=== PATIENT | male | born 1970 | race Caucasian/White ===

== ENCOUNTER 2018-02-02 15:14 | Emergency (ER) | payer MEDICARE ==
[2018-02-02] MEDS ORDERED: WARFARIN SOD 3 MG TAB PO (17:00)
== END 2018-02-02 16:10 | disposition home or self-care (01) ==
LOC: M ED 15:14
DX: Z76.0 Encounter for issue of repeat prescription (principal); M79.604 Pain in right leg; M79.605 Pain in left leg; E11.9 Type 2 diabetes mellitus without complications; I10 Essential (primary) hypertension; I25.2 Old myocardial infarction; Q05.9 Spina bifida, unspecified; F41.9 Anxiety disorder, unspecified; F32.9 Major depressive disorder, single episode, unspecified; Z96.0 Presence of urogenital implants; Z88.2 Allergy status to sulfonamides; Z79.899 Other long term (current) drug therapy; Z79.01 Long term (current) use of anticoagulants; Z79.4 Long term (current) use of insulin; Z79.82 Long term (current) use of aspirin
CPT/HCPCS: 99282

== ENCOUNTER 2018-02-04 01:34 | Emergency (ER) | payer MEDICARE ==
[2018-02-04] MEDS: LIDOCAINE 2% 5ML JELLY UROJET TOP (05:59)
[2018-02-04] MEDS: CEPHALEXIN 500 MG CAP PO (07:08)
== END 2018-02-04 07:11 | disposition home or self-care (01) ==
LOC: M ED 01:34
DX: Z46.6 Encounter for fitting and adjustment of urinary device (principal); E11.9 Type 2 diabetes mellitus without complications; L98.419 Non-pressure chronic ulcer of buttock with unspecified severity; J45.909 Unspecified asthma, uncomplicated; Q05.9 Spina bifida, unspecified; E78.9 Disorder of lipoprotein metabolism, unspecified; K21.9 Gastro-esophageal reflux disease without esophagitis; I25.2 Old myocardial infarction; Z79.899 Other long term (current) drug therapy; Z79.01 Long term (current) use of anticoagulants
CPT/HCPCS: 87186

== ENCOUNTER 2018-02-08 09:13 | Inpatient (IN) | payer MEDICARE ==
[2018-02-08 11:59] LABS: BASO # 0.1 10^3/uL (0.0-0.2); BASO % 0.5 % (0.0-1.0); EOS # 0.4 10^3/uL (0.0-0.50); EOS % 4.4 % (0.0-3.0); HEMATOCRIT 27.7 % (42.0-52.0); HEMOGLOBIN 7.6 g/dl (13.5-17.5); IMMATURE GRANULOCYTE % 0.6 % (0-3.0); LYMPH # 1.6 10^3/uL (1.5-4.5); LYMPH % 16.8 % (24.0-44.0); MEAN CORPUSCULAR HEMOGLOBIN 17.9 pg (27.0-33.0); MEAN CORPUSCULAR HGB CONC 27.4 g/dl (32.0-36.5); MEAN CORPUSCULAR VOLUME 65.3 fl (80.0-96.0); MONO # 0.6 10^3/uL (0.0-0.8); NEUTROPHILS # 6.9 10^3/uL (1.8-7.7); NEUTROPHILS % 71.7 % (36.0-66.0); PLATELET COUNT, AUTOMATED 250 10^3/uL (150-450); RED BLOOD COUNT 4.24 10^6/uL (4.30-6.10); RED CELL DISTRIBUTION WIDTH 19.2 % (11.5-14.5); WHITE BLOOD COUNT 9.6 10^3/uL (4.0-10.0)
[2018-02-08 12:18] LABS: ANION GAP 7 MEQ/L (8-16); BLOOD UREA NITROGEN 12 MG/DL (7-18); C REACTIVE PROTEIN QUANTITATIV 3.93 MG/DL (0.00-0.30); CALCIUM LEVEL 7.3 MG/DL (8.5-10.1); CARBON DIOXIDE LEVEL 26 MEQ/L (21-32); CHLORIDE LEVEL 107 MEQ/L (98-107); CREATININE FOR GFR 0.71 MG/DL (0.70-1.30); GLOMERULAR FILTRATION RATE > 60.0 (>60); GLUCOSE, FASTING 98 MG/DL (70-100); POTASSIUM SERUM 4.4 MEQ/L (3.5-5.1); SODIUM LEVEL 140 MEQ/L (136-145)
[2018-02-08 12:25] LABS: PROTHROMBIN TIME 57.4 SECONDS (12.1-14.4)
[2018-02-08 12:26] LABS: INR 6.32
[2018-02-08 12:29] LABS: ERYTHROCYTE SEDIMENTATION RATE 60 mm/hr (0-15)
[2018-02-08] MEDS: NORCO, ANEXSIA 5/325MG TABLET (HYDROcodone/ACETAMINOPHEN) PO ×2 (12:33→21:55)
[2018-02-08] MEDS: NS 500 ML IV (12:34)
[2018-02-08] MEDS: MORPHINE 4 MG/ML 1ML VIAL/SYRINGE (J2270) IV ×2 (12:34→14:33)
[2018-02-08 13:01] LABS: BEDSIDE GLUCOSE 78 MG/DL (70-105)
[2018-02-08 13:21] LABS: AMORPHOUS SEDIMENT RFX SMALL (NEGATIVE); KETONE, URINE AUTO RFX NEGATIVE (NEGATIVE); NITRITE, URINE AUTO RFX NEGATIVE (NEGATIVE); RBC, URINE AUTO RFX TNTC /HPF (0-3); SPECIFIC GRAVITY UR AUTO RFX 1.008 (1.002-1.035); SQUAM EPITHELIAL CELL UR AURFX 0 /HPF (0-6)
[2018-02-08 13:26] LABS: LEUKOCYTE ESTERASE UR AUTO RFX 3+ (NEGATIVE); WBC, URINE AUTO RFX TNTC /HPF (0-3)
[2018-02-08] MEDS: CLINDAMYCIN 600 MG in APPROPRIATE DILUENT 1 EA IV (13:31)
[2018-02-08 13:58] LABS: ESTIMATED AVERAGE GLUCOSE 258 MG/DL (60-110); HEMOGLOBIN A1c 10.6 %
[2018-02-08] MEDS: PHYTONADIONE 10MG/ML INJECTION (J3430) SC (15:30)
[2018-02-08] MEDS ORDERED: ONDANSETRON 4 MG TAB (S0181) PO (18:15)
[2018-02-08] MEDS ORDERED: ALBUTEROL 90 MCG/ACT 8GM HFA INHALER INH (18:15)
[2018-02-08] MEDS: ROSUVASTATIN 10 MG TAB (CRESTOR) PO (21:53)
[2018-02-08] MEDS: CARVedilol 6.25 MG TAB PO (21:55)
[2018-02-08] MEDS: CEPHALEXIN 500 MG CAP PO (21:55)
[2018-02-09] MEDS: CYCLOBENZAPRINE 10 MG TAB PO (00:08)
[2018-02-09] MEDS: ACETAMINOPHEN TAB 650MG DOSE (2X325MG) PO (02:10)
[2018-02-09 06:21] LABS: HEMATOCRIT 24.5 % (42.0-52.0); MEAN CORPUSCULAR HEMOGLOBIN 17.8 pg (27.0-33.0); MEAN CORPUSCULAR HGB CONC 26.9 g/dl (32.0-36.5); MEAN CORPUSCULAR VOLUME 66.2 fl (80.0-96.0); PLATELET COUNT, AUTOMATED 222 10^3/uL (150-450); RED CELL DISTRIBUTION WIDTH 19.1 % (11.5-14.5); WHITE BLOOD COUNT 6.9 10^3/uL (4.0-10.0)
[2018-02-09 06:26] LABS: HEMOGLOBIN 6.6 g/dl (13.5-17.5)
[2018-02-09 06:34] LABS: INR 4.65; PROTHROMBIN TIME 45.1 SECONDS (12.1-14.4)
[2018-02-09 06:39] LABS: ANION GAP 8 MEQ/L (8-16); BLOOD UREA NITROGEN 10 MG/DL (7-18); CARBON DIOXIDE LEVEL 25 MEQ/L (21-32); CHLORIDE LEVEL 105 MEQ/L (98-107); CREATININE FOR GFR 0.68 MG/DL (0.70-1.30); GLOMERULAR FILTRATION RATE > 60.0 (>60); GLUCOSE, FASTING 286 MG/DL (70-100); POTASSIUM SERUM 3.6 MEQ/L (3.5-5.1); SODIUM LEVEL 138 MEQ/L (136-145)
[2018-02-09] MEDS ORDERED: GLUCOSE 4 GM CHEW TABLET PO (07:45)
[2018-02-09] MEDS ORDERED: GLUCAGON FOR INJ 1 MG VIAL (J1610) SC (07:45)
[2018-02-09] MEDS ORDERED: DEXTROSE 50% 50 ML SYRINGE IV (07:45)
[2018-02-09] MEDS: SERTRALINE 100 MG TAB PO (09:48)
[2018-02-09] MEDS: CEPHALEXIN 500 MG CAP PO ×2 (09:48→21:23)
[2018-02-09] MEDS: PANTOPRAZOLE 40MG TAB (PROTONIX) PO (09:49)
[2018-02-09] MEDS: CARVedilol 6.25 MG TAB PO ×2 (09:49→21:24)
[2018-02-09] MEDS: MORPHINE 4 MG/ML 1ML VIAL/SYRINGE (J2270) IV ×3 (10:42→23:14)
[2018-02-09 11:33] LABS: MAGNESIUM LEVEL 1.5 MG/DL (1.8-2.4)
[2018-02-09 11:52] LABS: BEDSIDE GLUCOSE 237 MG/DL (70-105)
[2018-02-09 12:45] LABS: IMMEDIATE SPIN CROSSMATCH 1 2
[2018-02-09] MEDS: HumaLOG INSULIN (NovoLOG) PER UNIT SC ×3 (13:07→21:00)
[2018-02-09] MEDS: MAG SULF 1GM/100ML (MAG RUN) 1 GM in APPROPRIATE DILUENT 1 EA IV ×3 (15:10→17:07)
[2018-02-09] MEDS ORDERED: MAG SULF 1GM/100ML (MAG RUN) 1 GM in APPROPRIATE DILUENT 1 EA IV (15:15)
[2018-02-09 16:48] LABS: BEDSIDE GLUCOSE 233 MG/DL (70-105)
[2018-02-09 17:09] LABS: HEMATOCRIT 29.9 % (42.0-52.0); HEMOGLOBIN 8.5 g/dl (13.5-17.5)
[2018-02-09 20:55] LABS: BEDSIDE GLUCOSE 202 MG/DL (70-105)
[2018-02-09] MEDS: ROSUVASTATIN 10 MG TAB (CRESTOR) PO (21:23)
[2018-02-10] MEDS: MORPHINE 4 MG/ML 1ML VIAL/SYRINGE (J2270) IV ×3 (05:18→17:44)
[2018-02-10 06:31] LABS: HEMATOCRIT 29.3 % (42.0-52.0); HEMOGLOBIN 8.2 g/dl (13.5-17.5); MEAN CORPUSCULAR HEMOGLOBIN 19.5 pg (27.0-33.0); MEAN CORPUSCULAR VOLUME 69.6 fl (80.0-96.0); PLATELET COUNT, AUTOMATED 244 10^3/uL (150-450); RED BLOOD COUNT 4.21 10^6/uL (4.30-6.10); RED CELL DISTRIBUTION WIDTH 21.9 % (11.5-14.5); WHITE BLOOD COUNT 9.1 10^3/uL (4.0-10.0)
[2018-02-10 06:46] LABS: PROTHROMBIN TIME 23.1 SECONDS (12.1-14.4)
[2018-02-10 06:59] LABS: ANION GAP 5 MEQ/L (8-16); BLOOD UREA NITROGEN 8 MG/DL (7-18); CARBON DIOXIDE LEVEL 27 MEQ/L (21-32); CHLORIDE LEVEL 106 MEQ/L (98-107); GLOMERULAR FILTRATION RATE > 60.0 (>60); GLUCOSE, FASTING 168 MG/DL (70-100); POTASSIUM SERUM 3.6 MEQ/L (3.5-5.1); SODIUM LEVEL 138 MEQ/L (136-145)
[2018-02-10] MEDS: CARVedilol 6.25 MG TAB PO ×2 (08:48→22:29)
[2018-02-10] MEDS: CEPHALEXIN 500 MG CAP PO ×2 (08:48→22:28)
[2018-02-10] MEDS: SERTRALINE 100 MG TAB PO (08:48)
[2018-02-10] MEDS: PANTOPRAZOLE 40MG TAB (PROTONIX) PO (08:48)
[2018-02-10] MEDS: HumaLOG INSULIN (NovoLOG) PER UNIT SC ×4 (08:49→21:00)
[2018-02-10 11:58] LABS: BEDSIDE GLUCOSE 186 MG/DL (70-105)
[2018-02-10 13:50] LABS: MAGNESIUM LEVEL 1.7 MG/DL (1.8-2.4)
[2018-02-10] MEDS: MAGNESIUM OXIDE 400 MG TAB (MAG-OX) PO ×2 (14:07→22:28)
[2018-02-10] MEDS: CYCLOBENZAPRINE 10 MG TAB PO (16:50)
[2018-02-10] MEDS ORDERED: WARFARIN SOD 3 MG TAB PO (17:00)
[2018-02-10 17:35] LABS: BEDSIDE GLUCOSE 196 MG/DL (70-105)
[2018-02-10 20:08] LABS: BEDSIDE GLUCOSE 182 MG/DL (70-105)
[2018-02-10] MEDS: APIXABAN 5 MG TAB (ELIQUIS) PO (22:28)
[2018-02-10] MEDS: ROSUVASTATIN 10 MG TAB (CRESTOR) PO (22:28)
[2018-02-10] MEDS: PERCOCET 5MG/325MG TAB PO (22:38)
[2018-02-11] MEDS: MORPHINE 4 MG/ML 1ML VIAL/SYRINGE (J2270) IV ×2 (00:16→08:14)
[2018-02-11] MEDS: PERCOCET 5MG/325MG TAB PO ×3 (06:22→21:34)
[2018-02-11 07:00] LABS: HEMATOCRIT 29.3 % (42.0-52.0); HEMOGLOBIN 8.1 g/dl (13.5-17.5); MEAN CORPUSCULAR HEMOGLOBIN 19.3 pg (27.0-33.0); MEAN CORPUSCULAR HGB CONC 27.6 g/dl (32.0-36.5); MEAN CORPUSCULAR VOLUME 69.8 fl (80.0-96.0); PLATELET COUNT, AUTOMATED 243 10^3/uL (150-450); RED CELL DISTRIBUTION WIDTH 22.1 % (11.5-14.5); WHITE BLOOD COUNT 8.6 10^3/uL (4.0-10.0)
[2018-02-11 07:10] LABS: INR 1.49; PROTHROMBIN TIME 18.3 SECONDS (12.1-14.4)
[2018-02-11 07:22] LABS: ANION GAP 7 MEQ/L (8-16); BLOOD UREA NITROGEN 8 MG/DL (7-18); CALCIUM LEVEL 7.7 MG/DL (8.5-10.1); CARBON DIOXIDE LEVEL 24 MEQ/L (21-32); CHLORIDE LEVEL 104 MEQ/L (98-107); GLOMERULAR FILTRATION RATE > 60.0 (>60); GLUCOSE, FASTING 315 MG/DL (70-100); POTASSIUM SERUM 3.6 MEQ/L (3.5-5.1); SODIUM LEVEL 135 MEQ/L (136-145)
[2018-02-11] MEDS: HumaLOG INSULIN (NovoLOG) PER UNIT SC ×4 (08:12→21:34)
[2018-02-11] MEDS: APIXABAN 5 MG TAB (ELIQUIS) PO ×2 (10:16→21:26)
[2018-02-11] MEDS: CARVedilol 6.25 MG TAB PO ×2 (10:16→21:29)
[2018-02-11] MEDS: MAGNESIUM OXIDE 400 MG TAB (MAG-OX) PO ×2 (10:17→21:27)
[2018-02-11] MEDS: CEPHALEXIN 500 MG CAP PO ×2 (10:17→21:26)
[2018-02-11] MEDS: SERTRALINE 100 MG TAB PO (10:17)
[2018-02-11] MEDS: PANTOPRAZOLE 40MG TAB (PROTONIX) PO (10:17)
[2018-02-11 11:29] LABS: BEDSIDE GLUCOSE 249 MG/DL (70-105)
[2018-02-11 16:42] LABS: BEDSIDE GLUCOSE 203 MG/DL (70-105)
[2018-02-11] MEDS: ROSUVASTATIN 10 MG TAB (CRESTOR) PO (21:26)
[2018-02-11 21:30] LABS: BEDSIDE GLUCOSE 320 MG/DL (70-105)
[2018-02-12] MEDS: PERCOCET 5MG/325MG TAB PO ×4 (02:35→22:47)
[2018-02-12] MEDS: CYCLOBENZAPRINE 10 MG TAB PO (04:39)
[2018-02-12 05:41] LABS: HEMATOCRIT 30.4 % (42.0-52.0); HEMOGLOBIN 8.6 g/dl (13.5-17.5); MEAN CORPUSCULAR HEMOGLOBIN 19.7 pg (27.0-33.0); MEAN CORPUSCULAR HGB CONC 28.3 g/dl (32.0-36.5); MEAN CORPUSCULAR VOLUME 69.6 fl (80.0-96.0); PLATELET COUNT, AUTOMATED 261 10^3/uL (150-450); RED BLOOD COUNT 4.37 10^6/uL (4.30-6.10); RED CELL DISTRIBUTION WIDTH 22.7 % (11.5-14.5); WHITE BLOOD COUNT 8.8 10^3/uL (4.0-10.0)
[2018-02-12 05:55] LABS: INR 1.46
[2018-02-12 06:03] LABS: ANION GAP 8 MEQ/L (8-16); BLOOD UREA NITROGEN 8 MG/DL (7-18); CALCIUM LEVEL 7.3 MG/DL (8.5-10.1); CARBON DIOXIDE LEVEL 24 MEQ/L (21-32); CHLORIDE LEVEL 102 MEQ/L (98-107); CREATININE FOR GFR 0.68 MG/DL (0.70-1.30); GLOMERULAR FILTRATION RATE > 60.0 (>60); GLUCOSE, FASTING 317 MG/DL (70-100); POTASSIUM SERUM 3.4 MEQ/L (3.5-5.1); SODIUM LEVEL 134 MEQ/L (136-145)
[2018-02-12] MEDS: POTASSIUM CHLORIDE 10 MEQ SR TABLET PO (09:26)
[2018-02-12] MEDS: SERTRALINE 100 MG TAB PO (09:27)
[2018-02-12] MEDS: CEPHALEXIN 500 MG CAP PO ×2 (09:27→22:40)
[2018-02-12] MEDS: APIXABAN 5 MG TAB (ELIQUIS) PO ×2 (09:27→22:38)
[2018-02-12] MEDS: PANTOPRAZOLE 40MG TAB (PROTONIX) PO (09:27)
[2018-02-12] MEDS: MAGNESIUM OXIDE 400 MG TAB (MAG-OX) PO ×2 (09:27→22:40)
[2018-02-12] MEDS: CARVedilol 6.25 MG TAB PO ×2 (09:29→22:39)
[2018-02-12] MEDS: HumaLOG INSULIN (NovoLOG) PER UNIT SC ×4 (09:31→21:00)
[2018-02-12] MEDS: LEVEMIR (INSULIN DETEMIR) 1 UNITS/0.01ML SC (09:31)
[2018-02-12 12:29] LABS: BEDSIDE GLUCOSE 378 MG/DL (70-105)
[2018-02-12 17:28] LABS: BEDSIDE GLUCOSE 257 MG/DL (70-105)
[2018-02-12 21:58] LABS: BEDSIDE GLUCOSE 238 MG/DL (70-105)
[2018-02-12] MEDS: ROSUVASTATIN 10 MG TAB (CRESTOR) PO (22:39)
[2018-02-13] MEDS: PERCOCET 5MG/325MG TAB PO ×2 (04:17→22:25)
[2018-02-13 07:48] LABS: HEMATOCRIT 30.4 % (42.0-52.0); HEMOGLOBIN 8.4 g/dl (13.5-17.5); MEAN CORPUSCULAR HEMOGLOBIN 19.4 pg (27.0-33.0); MEAN CORPUSCULAR HGB CONC 27.6 g/dl (32.0-36.5); MEAN CORPUSCULAR VOLUME 70.2 fl (80.0-96.0); PLATELET COUNT, AUTOMATED 259 10^3/uL (150-450); RED BLOOD COUNT 4.33 10^6/uL (4.30-6.10); RED CELL DISTRIBUTION WIDTH 22.7 % (11.5-14.5); WHITE BLOOD COUNT 7.4 10^3/uL (4.0-10.0)
[2018-02-13 07:56] LABS: INR 1.35; PROTHROMBIN TIME 16.9 SECONDS (12.1-14.4)
[2018-02-13 08:12] LABS: ANION GAP 8 MEQ/L (8-16); BLOOD UREA NITROGEN 12 MG/DL (7-18); CALCIUM LEVEL 7.5 MG/DL (8.5-10.1); CARBON DIOXIDE LEVEL 26 MEQ/L (21-32); CHLORIDE LEVEL 104 MEQ/L (98-107); CREATININE FOR GFR 0.66 MG/DL (0.70-1.30); GLOMERULAR FILTRATION RATE > 60.0 (>60); GLUCOSE, FASTING 327 MG/DL (70-100); POTASSIUM SERUM 3.9 MEQ/L (3.5-5.1); SODIUM LEVEL 138 MEQ/L (136-145)
[2018-02-13] MEDS: HumaLOG INSULIN (NovoLOG) PER UNIT SC ×4 (08:35→21:00)
[2018-02-13] MEDS: MAGNESIUM OXIDE 400 MG TAB (MAG-OX) PO ×2 (08:36→22:23)
[2018-02-13] MEDS: PANTOPRAZOLE 40MG TAB (PROTONIX) PO (08:36)
[2018-02-13] MEDS: APIXABAN 5 MG TAB (ELIQUIS) PO ×2 (08:36→22:23)
[2018-02-13] MEDS: LEVEMIR (INSULIN DETEMIR) 1 UNITS/0.01ML SC (08:37)
[2018-02-13] MEDS: CEPHALEXIN 500 MG CAP PO ×2 (08:37→22:23)
[2018-02-13] MEDS: CARVedilol 6.25 MG TAB PO ×2 (08:37→22:24)
[2018-02-13] MEDS: SERTRALINE 100 MG TAB PO (08:37)
[2018-02-13 11:59] LABS: BEDSIDE GLUCOSE 324 MG/DL (70-105)
[2018-02-13 17:13] LABS: BEDSIDE GLUCOSE 213 MG/DL (70-105)
[2018-02-13 20:34] LABS: BEDSIDE GLUCOSE 200 MG/DL (70-105)
[2018-02-13] MEDS: ROSUVASTATIN 10 MG TAB (CRESTOR) PO (22:24)
[2018-02-14 06:01] LABS: HEMATOCRIT 29.6 % (42.0-52.0); HEMOGLOBIN 8.2 g/dl (13.5-17.5); MEAN CORPUSCULAR HEMOGLOBIN 19.2 pg (27.0-33.0); MEAN CORPUSCULAR HGB CONC 27.7 g/dl (32.0-36.5); MEAN CORPUSCULAR VOLUME 69.5 fl (80.0-96.0); PLATELET COUNT, AUTOMATED 287 10^3/uL (150-450); RED BLOOD COUNT 4.26 10^6/uL (4.30-6.10); RED CELL DISTRIBUTION WIDTH 23.3 % (11.5-14.5); WHITE BLOOD COUNT 8.6 10^3/uL (4.0-10.0)
[2018-02-14 06:12] LABS: INR 1.26
[2018-02-14 06:18] LABS: ANION GAP 7 MEQ/L (8-16); BLOOD UREA NITROGEN 11 MG/DL (7-18); CALCIUM LEVEL 7.9 MG/DL (8.5-10.1); CARBON DIOXIDE LEVEL 26 MEQ/L (21-32); CHLORIDE LEVEL 107 MEQ/L (98-107); CREATININE FOR GFR 0.54 MG/DL (0.70-1.30); GLOMERULAR FILTRATION RATE > 60.0 (>60); GLUCOSE, FASTING 195 MG/DL (70-100); POTASSIUM SERUM 3.9 MEQ/L (3.5-5.1); SODIUM LEVEL 140 MEQ/L (136-145)
[2018-02-14] MEDS: LEVEMIR (INSULIN DETEMIR) 1 UNITS/0.01ML SC (08:00)
[2018-02-14] MEDS: HumaLOG INSULIN (NovoLOG) PER UNIT SC ×4 (08:01→21:00)
[2018-02-14] MEDS: CARVedilol 6.25 MG TAB PO ×2 (08:01→21:13)
[2018-02-14] MEDS: APIXABAN 5 MG TAB (ELIQUIS) PO ×2 (08:01→21:13)
[2018-02-14] MEDS: PANTOPRAZOLE 40MG TAB (PROTONIX) PO (08:01)
[2018-02-14] MEDS: CEPHALEXIN 500 MG CAP PO ×2 (08:01→21:12)
[2018-02-14] MEDS: SERTRALINE 100 MG TAB PO (08:01)
[2018-02-14] MEDS: MAGNESIUM OXIDE 400 MG TAB (MAG-OX) PO ×2 (08:02→21:12)
[2018-02-14 11:30] LABS: BEDSIDE GLUCOSE 241 MG/DL (70-105)
[2018-02-14 16:34] LABS: BEDSIDE GLUCOSE 227 MG/DL (70-105)
[2018-02-14] MEDS: ROSUVASTATIN 10 MG TAB (CRESTOR) PO (21:12)
[2018-02-14 22:09] LABS: BEDSIDE GLUCOSE 175 MG/DL (70-105)
[2018-02-15 06:26] LABS: HEMOGLOBIN 8.6 g/dl (13.5-17.5); MEAN CORPUSCULAR HEMOGLOBIN 19.5 pg (27.0-33.0); MEAN CORPUSCULAR HGB CONC 27.7 g/dl (32.0-36.5); MEAN CORPUSCULAR VOLUME 70.1 fl (80.0-96.0); PLATELET COUNT, AUTOMATED 294 10^3/uL (150-450); RED BLOOD COUNT 4.42 10^6/uL (4.30-6.10); RED CELL DISTRIBUTION WIDTH 23.9 % (11.5-14.5); WHITE BLOOD COUNT 9.1 10^3/uL (4.0-10.0)
[2018-02-15 06:37] LABS: INR 1.21; PROTHROMBIN TIME 15.5 SECONDS (12.1-14.4)
[2018-02-15 06:43] LABS: ANION GAP 7 MEQ/L (8-16); BLOOD UREA NITROGEN 11 MG/DL (7-18); CARBON DIOXIDE LEVEL 25 MEQ/L (21-32); CHLORIDE LEVEL 108 MEQ/L (98-107); CREATININE FOR GFR 0.58 MG/DL (0.70-1.30); GLOMERULAR FILTRATION RATE > 60.0 (>60); GLUCOSE, FASTING 161 MG/DL (70-100); SODIUM LEVEL 140 MEQ/L (136-145)
[2018-02-15] MEDS: MAGNESIUM OXIDE 400 MG TAB (MAG-OX) PO ×2 (09:14→20:51)
[2018-02-15] MEDS: APIXABAN 5 MG TAB (ELIQUIS) PO ×2 (09:16→20:50)
[2018-02-15] MEDS: PANTOPRAZOLE 40MG TAB (PROTONIX) PO (09:16)
[2018-02-15] MEDS: LEVEMIR (INSULIN DETEMIR) 1 UNITS/0.01ML SC (09:16)
[2018-02-15] MEDS: SERTRALINE 100 MG TAB PO (09:16)
[2018-02-15] MEDS: CARVedilol 6.25 MG TAB PO ×2 (09:16→20:51)
[2018-02-15] MEDS: CEPHALEXIN 500 MG CAP PO (09:16)
[2018-02-15] MEDS: HumaLOG INSULIN (NovoLOG) PER UNIT SC ×4 (09:17→20:39)
[2018-02-15] MEDS: PERCOCET 5MG/325MG TAB PO ×3 (09:17→20:51)
[2018-02-15 11:15] LABS: BEDSIDE GLUCOSE 207 MG/DL (70-105)
[2018-02-15 17:09] LABS: BEDSIDE GLUCOSE 169 MG/DL (70-105)
[2018-02-15 19:56] LABS: BEDSIDE GLUCOSE 135 MG/DL (70-105)
[2018-02-15] MEDS: ROSUVASTATIN 10 MG TAB (CRESTOR) PO (20:50)
[2018-02-16] MEDS: PERCOCET 5MG/325MG TAB PO ×4 (02:26→21:09)
[2018-02-16 06:38] LABS: BEDSIDE GLUCOSE 197 MG/DL (70-105)
[2018-02-16] MEDS: PANTOPRAZOLE 40MG TAB (PROTONIX) PO (07:44)
[2018-02-16] MEDS: SERTRALINE 100 MG TAB PO (07:44)
[2018-02-16] MEDS: MAGNESIUM OXIDE 400 MG TAB (MAG-OX) PO ×2 (07:44→21:08)
[2018-02-16] MEDS: APIXABAN 5 MG TAB (ELIQUIS) PO ×2 (07:44→21:08)
[2018-02-16] MEDS: CARVedilol 6.25 MG TAB PO ×2 (07:52→21:09)
[2018-02-16 07:57] LABS: HEMATOCRIT 29.5 % (42.0-52.0); HEMOGLOBIN 8.1 g/dl (13.5-17.5); MEAN CORPUSCULAR HEMOGLOBIN 18.9 pg (27.0-33.0); MEAN CORPUSCULAR HGB CONC 27.5 g/dl (32.0-36.5); MEAN CORPUSCULAR VOLUME 68.9 fl (80.0-96.0); PLATELET COUNT, AUTOMATED 287 10^3/uL (150-450); RED BLOOD COUNT 4.28 10^6/uL (4.30-6.10); RED CELL DISTRIBUTION WIDTH 23.4 % (11.5-14.5); WHITE BLOOD COUNT 7.5 10^3/uL (4.0-10.0)
[2018-02-16 08:25] LABS: ANION GAP 7 MEQ/L (8-16); BLOOD UREA NITROGEN 12 MG/DL (7-18); CALCIUM LEVEL 7.8 MG/DL (8.5-10.1); CARBON DIOXIDE LEVEL 28 MEQ/L (21-32); CHLORIDE LEVEL 105 MEQ/L (98-107); CREATININE FOR GFR 0.64 MG/DL (0.70-1.30); GLOMERULAR FILTRATION RATE > 60.0 (>60); GLUCOSE, FASTING 191 MG/DL (70-100); POTASSIUM SERUM 3.7 MEQ/L (3.5-5.1); SODIUM LEVEL 140 MEQ/L (136-145)
[2018-02-16] MEDS: LEVEMIR (INSULIN DETEMIR) 1 UNITS/0.01ML SC (08:32)
[2018-02-16] MEDS: HumaLOG INSULIN (NovoLOG) PER UNIT SC ×4 (08:32→21:00)
[2018-02-16 17:21] LABS: BEDSIDE GLUCOSE 167 MG/DL (70-105)
[2018-02-16] MEDS: ROSUVASTATIN 10 MG TAB (CRESTOR) PO (21:08)
[2018-02-16 22:28] LABS: BEDSIDE GLUCOSE 190 MG/DL (70-105)
[2018-02-17 07:18] LABS: BEDSIDE GLUCOSE 156 MG/DL (70-105)
[2018-02-17] MEDS: PANTOPRAZOLE 40MG TAB (PROTONIX) PO (08:33)
[2018-02-17] MEDS: APIXABAN 5 MG TAB (ELIQUIS) PO ×2 (08:33→21:12)
[2018-02-17] MEDS: SERTRALINE 100 MG TAB PO (08:34)
[2018-02-17] MEDS: CARVedilol 6.25 MG TAB PO ×2 (08:34→21:13)
[2018-02-17] MEDS: MAGNESIUM OXIDE 400 MG TAB (MAG-OX) PO ×2 (08:34→21:12)
[2018-02-17] MEDS: HumaLOG INSULIN (NovoLOG) PER UNIT SC ×5 (08:35→21:00)
[2018-02-17] MEDS: LEVEMIR (INSULIN DETEMIR) 1 UNITS/0.01ML SC (08:35)
[2018-02-17 11:02] LABS: HEMATOCRIT 30.2 % (42.0-52.0); HEMOGLOBIN 8.5 g/dl (13.5-17.5); MEAN CORPUSCULAR HEMOGLOBIN 19.3 pg (27.0-33.0); MEAN CORPUSCULAR HGB CONC 28.1 g/dl (32.0-36.5); MEAN CORPUSCULAR VOLUME 68.5 fl (80.0-96.0); PLATELET COUNT, AUTOMATED 298 10^3/uL (150-450); RED BLOOD COUNT 4.41 10^6/uL (4.30-6.10); RED CELL DISTRIBUTION WIDTH 23.6 % (11.5-14.5); WHITE BLOOD COUNT 8.4 10^3/uL (4.0-10.0)
[2018-02-17] MEDS: ROSUVASTATIN 10 MG TAB (CRESTOR) PO (21:12)
[2018-02-18 03:15] LABS: BEDSIDE GLUCOSE 194 MG/DL (70-105)
[2018-02-18 08:07] LABS: HEMATOCRIT 31.6 % (42.0-52.0); HEMOGLOBIN 8.8 g/dl (13.5-17.5); MEAN CORPUSCULAR HEMOGLOBIN 19.6 pg (27.0-33.0); MEAN CORPUSCULAR HGB CONC 27.8 g/dl (32.0-36.5); MEAN CORPUSCULAR VOLUME 70.2 fl (80.0-96.0); PLATELET COUNT, AUTOMATED 327 10^3/uL (150-450); WHITE BLOOD COUNT 8.4 10^3/uL (4.0-10.0)
[2018-02-18 08:31] LABS: ANION GAP 7 MEQ/L (8-16); BLOOD UREA NITROGEN 11 MG/DL (7-18); CALCIUM LEVEL 7.9 MG/DL (8.5-10.1); CARBON DIOXIDE LEVEL 28 MEQ/L (21-32); CHLORIDE LEVEL 107 MEQ/L (98-107); CREATININE FOR GFR 0.58 MG/DL (0.70-1.30); GLOMERULAR FILTRATION RATE > 60.0 (>60); GLUCOSE, FASTING 174 MG/DL (70-100); MAGNESIUM LEVEL 1.7 MG/DL (1.8-2.4); SODIUM LEVEL 142 MEQ/L (136-145)
[2018-02-18] MEDS: HumaLOG INSULIN (NovoLOG) PER UNIT SC ×4 (08:38→20:56)
[2018-02-18] MEDS: CARVedilol 6.25 MG TAB PO ×2 (08:39→20:56)
[2018-02-18] MEDS: APIXABAN 5 MG TAB (ELIQUIS) PO ×2 (08:39→20:56)
[2018-02-18] MEDS: PANTOPRAZOLE 40MG TAB (PROTONIX) PO (08:39)
[2018-02-18] MEDS: MAGNESIUM OXIDE 400 MG TAB (MAG-OX) PO ×2 (08:39→20:56)
[2018-02-18] MEDS: LEVEMIR (INSULIN DETEMIR) 1 UNITS/0.01ML SC (08:40)
[2018-02-18] MEDS: SERTRALINE 100 MG TAB PO (08:40)
[2018-02-18] MEDS: ROSUVASTATIN 10 MG TAB (CRESTOR) PO (20:56)
[2018-02-18] MEDS: PERCOCET 5MG/325MG TAB PO (21:42)
[2018-02-19] MEDS: SERTRALINE 100 MG TAB PO (08:18)
[2018-02-19] MEDS: PANTOPRAZOLE 40MG TAB (PROTONIX) PO (08:18)
[2018-02-19] MEDS: MAGNESIUM OXIDE 400 MG TAB (MAG-OX) PO ×2 (08:19→21:11)
[2018-02-19] MEDS: APIXABAN 5 MG TAB (ELIQUIS) PO ×2 (08:19→21:11)
[2018-02-19] MEDS: HumaLOG INSULIN (NovoLOG) PER UNIT SC ×4 (08:19→20:48)
[2018-02-19] MEDS: LEVEMIR (INSULIN DETEMIR) 1 UNITS/0.01ML SC (08:19)
[2018-02-19] MEDS: CARVedilol 6.25 MG TAB PO ×2 (08:21→21:11)
[2018-02-19 11:40] LABS: BEDSIDE GLUCOSE 150 MG/DL (70-105)
[2018-02-19 16:57] LABS: BEDSIDE GLUCOSE 182 MG/DL (70-105)
[2018-02-19] MEDS: ROSUVASTATIN 10 MG TAB (CRESTOR) PO (21:11)
[2018-02-19] MEDS: PERCOCET 5MG/325MG TAB PO (21:11)
[2018-02-20] MEDS: HumaLOG INSULIN (NovoLOG) PER UNIT SC ×4 (09:26→20:41)
[2018-02-20] MEDS: LEVEMIR (INSULIN DETEMIR) 1 UNITS/0.01ML SC (09:26)
[2018-02-20] MEDS: CARVedilol 6.25 MG TAB PO ×2 (09:27→20:46)
[2018-02-20] MEDS: MAGNESIUM OXIDE 400 MG TAB (MAG-OX) PO ×2 (09:27→20:46)
[2018-02-20] MEDS: PANTOPRAZOLE 40MG TAB (PROTONIX) PO (09:27)
[2018-02-20] MEDS: SERTRALINE 100 MG TAB PO (09:27)
[2018-02-20] MEDS: APIXABAN 5 MG TAB (ELIQUIS) PO ×2 (09:27→20:46)
[2018-02-20 11:30] LABS: BEDSIDE GLUCOSE 146 MG/DL (70-105)
[2018-02-20] MEDS: PERCOCET 5MG/325MG TAB PO ×2 (11:51→18:51)
[2018-02-20 16:37] LABS: BEDSIDE GLUCOSE 149 MG/DL (70-105)
[2018-02-20] MEDS: ROSUVASTATIN 10 MG TAB (CRESTOR) PO (20:46)
[2018-02-20 23:28] LABS: BEDSIDE GLUCOSE 240 MG/DL (70-105)
[2018-02-20 23:28] LABS: BEDSIDE GLUCOSE 179 MG/DL (70-105)
[2018-02-20 23:28] LABS: BEDSIDE GLUCOSE 207 MG/DL (70-105)
[2018-02-20 23:28] LABS: BEDSIDE GLUCOSE 222 MG/DL (70-105)
[2018-02-21 06:08] LABS: BEDSIDE GLUCOSE 147 MG/DL (70-105)
[2018-02-21 06:08] LABS: BEDSIDE GLUCOSE 186 MG/DL (70-105)
[2018-02-21 06:08] LABS: BEDSIDE GLUCOSE 160 MG/DL (70-105)
[2018-02-21 06:14] LABS: BEDSIDE GLUCOSE 173 MG/DL (70-105)
[2018-02-21] MEDS: LEVEMIR (INSULIN DETEMIR) 1 UNITS/0.01ML SC (07:49)
[2018-02-21] MEDS: HumaLOG INSULIN (NovoLOG) PER UNIT SC ×4 (07:50→21:00)
[2018-02-21] MEDS: MAGNESIUM OXIDE 400 MG TAB (MAG-OX) PO ×2 (07:50→21:20)
[2018-02-21] MEDS: CARVedilol 6.25 MG TAB PO ×2 (07:50→21:22)
[2018-02-21] MEDS: PANTOPRAZOLE 40MG TAB (PROTONIX) PO (07:51)
[2018-02-21] MEDS: APIXABAN 5 MG TAB (ELIQUIS) PO ×2 (07:51→21:20)
[2018-02-21] MEDS: SERTRALINE 100 MG TAB PO (07:51)
[2018-02-21 11:46] LABS: BEDSIDE GLUCOSE 141 MG/DL (70-105)
[2018-02-21 17:08] LABS: BEDSIDE GLUCOSE 168 MG/DL (70-105)
[2018-02-21] MEDS: PERCOCET 5MG/325MG TAB PO ×2 (17:30→21:22)
[2018-02-21] MEDS: ROSUVASTATIN 10 MG TAB (CRESTOR) PO (21:20)
[2018-02-22] MEDS: PERCOCET 5MG/325MG TAB PO ×3 (05:33→18:15)
[2018-02-22 06:00] LABS: HEMATOCRIT 31.6 % (42.0-52.0); HEMOGLOBIN 8.7 g/dl (13.5-17.5); MEAN CORPUSCULAR HEMOGLOBIN 19.4 pg (27.0-33.0); MEAN CORPUSCULAR HGB CONC 27.5 g/dl (32.0-36.5); MEAN CORPUSCULAR VOLUME 70.5 fl (80.0-96.0); PLATELET COUNT, AUTOMATED 243 10^3/uL (150-450); RED BLOOD COUNT 4.48 10^6/uL (4.30-6.10); RED CELL DISTRIBUTION WIDTH 23.5 % (11.5-14.5); WHITE BLOOD COUNT 6.6 10^3/uL (4.0-10.0)
[2018-02-22 06:25] LABS: ANION GAP 6 MEQ/L (8-16); BLOOD UREA NITROGEN 15 MG/DL (7-18); CALCIUM LEVEL 7.7 MG/DL (8.5-10.1); CARBON DIOXIDE LEVEL 27 MEQ/L (21-32); CHLORIDE LEVEL 102 MEQ/L (98-107); CREATININE FOR GFR 0.57 MG/DL (0.70-1.30); GLOMERULAR FILTRATION RATE > 60.0 (>60); GLUCOSE, FASTING 146 MG/DL (70-100); MAGNESIUM LEVEL 1.7 MG/DL (1.8-2.4); POTASSIUM SERUM 3.5 MEQ/L (3.5-5.1); SODIUM LEVEL 135 MEQ/L (136-145)
[2018-02-22] MEDS: SERTRALINE 100 MG TAB PO (07:51)
[2018-02-22] MEDS: CARVedilol 6.25 MG TAB PO ×2 (07:52→21:16)
[2018-02-22] MEDS: APIXABAN 5 MG TAB (ELIQUIS) PO ×2 (07:52→21:12)
[2018-02-22] MEDS: PANTOPRAZOLE 40MG TAB (PROTONIX) PO (07:52)
[2018-02-22] MEDS: MAGNESIUM OXIDE 400 MG TAB (MAG-OX) PO ×2 (07:52→21:12)
[2018-02-22] MEDS: LEVEMIR (INSULIN DETEMIR) 1 UNITS/0.01ML SC (07:53)
[2018-02-22] MEDS: HumaLOG INSULIN (NovoLOG) PER UNIT SC ×4 (07:53→21:00)
[2018-02-22 11:28] LABS: BEDSIDE GLUCOSE 213 MG/DL (70-105)
[2018-02-22 12:19] LABS: BEDSIDE GLUCOSE 230 MG/DL (70-105)
[2018-02-22 12:19] LABS: BEDSIDE GLUCOSE 171 MG/DL (70-105)
[2018-02-22 12:19] LABS: BEDSIDE GLUCOSE 126 MG/DL (70-105)
[2018-02-22 16:26] LABS: BEDSIDE GLUCOSE 101 MG/DL (70-105)
[2018-02-22] MEDS: ROSUVASTATIN 10 MG TAB (CRESTOR) PO (21:12)
[2018-02-23 06:32] LABS: BEDSIDE GLUCOSE 294 MG/DL (70-105)
[2018-02-23] MEDS: LEVEMIR (INSULIN DETEMIR) 1 UNITS/0.01ML SC (09:46)
[2018-02-23] MEDS: HumaLOG INSULIN (NovoLOG) PER UNIT SC ×4 (09:46→20:50)
[2018-02-23] MEDS: MAGNESIUM OXIDE 400 MG TAB (MAG-OX) PO ×2 (09:46→20:50)
[2018-02-23] MEDS: PANTOPRAZOLE 40MG TAB (PROTONIX) PO (09:46)
[2018-02-23] MEDS: CARVedilol 6.25 MG TAB PO ×2 (09:47→20:50)
[2018-02-23] MEDS: SERTRALINE 100 MG TAB PO (09:47)
[2018-02-23] MEDS: APIXABAN 5 MG TAB (ELIQUIS) PO ×2 (09:47→20:49)
[2018-02-23 11:52] LABS: BEDSIDE GLUCOSE 212 MG/DL (70-105)
[2018-02-23 16:55] LABS: BEDSIDE GLUCOSE 147 MG/DL (70-105)
[2018-02-23 20:47] LABS: BEDSIDE GLUCOSE 149 MG/DL (70-105)
[2018-02-23] MEDS: ROSUVASTATIN 10 MG TAB (CRESTOR) PO (20:49)
[2018-02-24] MEDS: PERCOCET 5MG/325MG TAB PO ×2 (00:40→12:11)
[2018-02-24 05:44] LABS: BEDSIDE GLUCOSE 160 MG/DL (70-105)
[2018-02-24 05:44] LABS: BEDSIDE GLUCOSE 139 MG/DL (70-105)
[2018-02-24 06:22] LABS: BEDSIDE GLUCOSE 140 MG/DL (70-105)
[2018-02-24] MEDS: LEVEMIR (INSULIN DETEMIR) 1 UNITS/0.01ML SC (07:33)
[2018-02-24] MEDS: MAGNESIUM OXIDE 400 MG TAB (MAG-OX) PO ×2 (07:33→21:35)
[2018-02-24] MEDS: HumaLOG INSULIN (NovoLOG) PER UNIT SC ×4 (07:33→21:00)
[2018-02-24] MEDS: PANTOPRAZOLE 40MG TAB (PROTONIX) PO (07:33)
[2018-02-24] MEDS: APIXABAN 5 MG TAB (ELIQUIS) PO ×2 (07:34→21:35)
[2018-02-24] MEDS: CARVedilol 6.25 MG TAB PO ×2 (07:34→21:38)
[2018-02-24] MEDS: SERTRALINE 100 MG TAB PO (07:34)
[2018-02-24 11:33] LABS: BEDSIDE GLUCOSE 166 MG/DL (70-105)
[2018-02-24 16:29] LABS: BEDSIDE GLUCOSE 203 MG/DL (70-105)
[2018-02-24 21:35] LABS: BEDSIDE GLUCOSE 165 MG/DL (70-105)
[2018-02-24] MEDS: ROSUVASTATIN 10 MG TAB (CRESTOR) PO (21:35)
[2018-02-25] MEDS: PERCOCET 5MG/325MG TAB PO (04:02)
[2018-02-25 06:13] LABS: BEDSIDE GLUCOSE 207 MG/DL (70-105)
[2018-02-25] MEDS: HumaLOG INSULIN (NovoLOG) PER UNIT SC ×4 (08:22→20:44)
[2018-02-25] MEDS: MAGNESIUM OXIDE 400 MG TAB (MAG-OX) PO ×2 (08:23→20:48)
[2018-02-25] MEDS: LEVEMIR (INSULIN DETEMIR) 1 UNITS/0.01ML SC (08:23)
[2018-02-25] MEDS: APIXABAN 5 MG TAB (ELIQUIS) PO ×2 (08:23→20:48)
[2018-02-25] MEDS: SERTRALINE 100 MG TAB PO (08:23)
[2018-02-25] MEDS: PANTOPRAZOLE 40MG TAB (PROTONIX) PO (08:23)
[2018-02-25] MEDS: CARVedilol 6.25 MG TAB PO ×2 (08:23→20:48)
[2018-02-25 11:30] LABS: BEDSIDE GLUCOSE 192 MG/DL (70-105)
[2018-02-25 16:58] LABS: BEDSIDE GLUCOSE 211 MG/DL (70-105)
[2018-02-25 20:43] LABS: BEDSIDE GLUCOSE 244 MG/DL (70-105)
[2018-02-25] MEDS: ROSUVASTATIN 10 MG TAB (CRESTOR) PO (20:48)
[2018-02-26 05:52] LABS: BEDSIDE GLUCOSE 254 MG/DL (70-105)
[2018-02-26] MEDS: HumaLOG INSULIN (NovoLOG) PER UNIT SC (07:30)
[2018-02-26] MEDS: SERTRALINE 100 MG TAB PO (10:32)
[2018-02-26] MEDS: CARVedilol 6.25 MG TAB PO (10:32)
[2018-02-26] MEDS: APIXABAN 5 MG TAB (ELIQUIS) PO (10:32)
[2018-02-26] MEDS: MAGNESIUM OXIDE 400 MG TAB (MAG-OX) PO (10:33)
[2018-02-26] MEDS: PANTOPRAZOLE 40MG TAB (PROTONIX) PO (10:33)
[2018-02-26] MEDS: LEVEMIR (INSULIN DETEMIR) 1 UNITS/0.01ML SC (10:33)
[2018-02-26 12:01] LABS: BEDSIDE GLUCOSE 164 MG/DL (70-105)
== END 2018-02-26 12:21 | disposition left against medical advice (07) | DRG 813 ==
LOC: M ED 09:13 → M ED INP 17:20 → M MSPAV 19:33
PROC: 30233N1 Transfusion of Nonautologous Red Blood Cells into Peripheral Vein, Percutaneous Approach (ICD-10-PCS; principal; 2018-02-08)
DX: D68.32 Hemorrhagic disorder due to extrinsic circulating anticoagulants (principal); N39.0 Urinary tract infection, site not specified; D62 Acute posthemorrhagic anemia; L89.311 Pressure ulcer of right buttock, stage 1; L89.321 Pressure ulcer of left buttock, stage 1; Q05.9 Spina bifida, unspecified; I25.2 Old myocardial infarction; G47.33 Obstructive sleep apnea (adult) (pediatric); E11.9 Type 2 diabetes mellitus without complications; B96.5 Pseudomonas (aeruginosa) (mallei) (pseudomallei) as the cause of diseases classified elsewhere; E78.5 Hyperlipidemia, unspecified; E87.6 Hypokalemia; F32.9 Major depressive disorder, single episode, unspecified; Z95.5 Presence of coronary angioplasty implant and graft; Z93.3 Colostomy status; Z90.49 Acquired absence of other specified parts of digestive tract; Z79.82 Long term (current) use of aspirin; Z99.3 Dependence on wheelchair; Z79.4 Long term (current) use of insulin; Z79.01 Long term (current) use of anticoagulants; Z79.899 Other long term (current) drug therapy; Z88.2 Allergy status to sulfonamides; Z88.8 Allergy status to other drugs, medicaments and biological substances

== ENCOUNTER 2018-03-06 11:24 | Emergency (ER) | payer MEDICARE, SELFPAY ==
[~2018-03-06] VITALS: Ht 160 cm; Wt 118.2 kg
[~2018-03-06 11:24] MED LIST: /LINE60TA; ALBU17IN INH; ASPI1TAB PO; ASPI81CH PO; BASA100I SC; CARV3.12 PO; CARV6.25 PO; CIPR500T19; COUM6TAB PO; CRES20TA PO; CYCL10TA PO; DULC10SU2 PR; ELIQ5TAB PO; ENEMENE16 PR; FERR1TAB8 PO; FEVE650S3 PR; FISH1000 PO; FLUC10TA PO; FURO20TA2 PO; GEMF600T; GEMF600T5 PO; GLIM4TAB PO; GLUC1.2L PO; HYDR-3713 PO; HYDR25TA6; HYDR25TA8; INSUHUMDS SC; INVO100T PO; KEFL500C17 PO; LIPI20TA PO; LISI5TAB; LOSA25TA33 PO; MAG-84TA PO; METF10004 PO; MILK12002 PO; MUCI600T37 PO; MULT1TAB8 PO; NITR4TASL SL; NYST1POW9 TOP; ONDA4TAB5 PO; OXYB5TAB10 PO; PANT40TA3 PO; PERCOCET PO; PLAV1TAB2 PO; PRAV40TA PO; PRIL20CA; PRIL40CA PO; PROAAER10 INH; SERT-138 PO; SERT100T; TOUJ1.2I SC; TUBE5INJ ID; TYLE325T5 PO; VENTAER INH; VIBR100C PO; VICO5TAB; VITMTA PO; WARF-60 PO; [UNRECOGNIZED DRUG - OTHER]
[2018-03-06] MEDS ORDERED: LIDOCAINE 2% 5ML JELLY UROJET TOP ONE (11:45)
[2018-03-06 12:57] VITALS: BP 130/67
== END 2018-03-06 13:07 | disposition home or self-care (01) ==
LOC: M ED 11:24
DX: T83.098A Other mechanical complication of other urinary catheter, initial encounter (principal); Y92.9 Unspecified place or not applicable; Y93.9 Activity, unspecified; I25.2 Old myocardial infarction; E11.9 Type 2 diabetes mellitus without complications; I10 Essential (primary) hypertension; K21.9 Gastro-esophageal reflux disease without esophagitis; G47.30 Sleep apnea, unspecified; J45.909 Unspecified asthma, uncomplicated; F41.9 Anxiety disorder, unspecified; F32.9 Major depressive disorder, single episode, unspecified; Q05.9 Spina bifida, unspecified; Z95.5 Presence of coronary angioplasty implant and graft; Z93.3 Colostomy status; Z79.01 Long term (current) use of anticoagulants; Z79.82 Long term (current) use of aspirin; Z79.4 Long term (current) use of insulin; Z79.899 Other long term (current) drug therapy; Z88.2 Allergy status to sulfonamides; Z88.1 Allergy status to other antibiotic agents; Z88.8 Allergy status to other drugs, medicaments and biological substances

== ENCOUNTER → 2018-05-05 | Outpatient (REF) | payer MEDICARE ==
[~2018-05-05] MED LIST changes: -ENEMENE16 PR; +ENEMENE4 PR; +LOSA25TA14 PO; -LOSA25TA33 PO; +MILK120011 PO; -MILK12002 PO
[2018-05-05 13:28] LABS: HEMATOCRIT 40.5 % (42.0-52.0); HEMOGLOBIN 11.1 g/dl (13.5-17.5); MEAN CORPUSCULAR HEMOGLOBIN 18.9 pg (27.0-33.0); MEAN CORPUSCULAR HGB CONC 27.4 g/dl (32.0-36.5); MEAN CORPUSCULAR VOLUME 68.9 fl (80.0-96.0); PLATELET COUNT, AUTOMATED 354 10^3/uL (150-450); RED BLOOD COUNT 5.88 10^6/uL (4.30-6.10); WHITE BLOOD COUNT 11.4 10^3/uL (4.0-10.0)
[2018-05-05 13:50] LABS: ALT/SGPT 23 U/L (12-78); BLOOD UREA NITROGEN 10 MG/DL (7-18); CALCIUM LEVEL 8.6 MG/DL (8.5-10.1); CARBON DIOXIDE LEVEL 29 MEQ/L (21-32); CHLORIDE LEVEL 99 MEQ/L (98-107); CREATININE FOR GFR 0.59 MG/DL (0.70-1.30); GLOMERULAR FILTRATION RATE > 60.0 (>60); GLUCOSE, FASTING 279 MG/DL (70-100); POTASSIUM SERUM 4.6 MEQ/L (3.5-5.1); SODIUM LEVEL 133 MEQ/L (136-145)
[2018-05-05 13:51] LABS: ALBUMIN 2.8 GM/DL (3.2-5.2); BILIRUBIN,TOTAL 0.6 MG/DL (0.2-1.0); CHOLESTEROL LEVEL 146 MG/DL (<200); CHOLESTEROL RISK RATIO 5.034 (<5); HDL CHOLESTEROL 29 MG/DL (>40); LDL CHOLESTEROL 71 MG/DL (<100); NON-HDL-C 117 MG/DL; TOTAL PROTEIN 7.5 GM/DL (6.4-8.2); TRIGLYCERIDES LEVEL 231 MG/DL (<150)
[2018-05-05 14:18] LABS: HEMOGLOBIN A1c 11.2 %
== END ==
LOC: M SFHCPLAZ 11:28
PROVIDERS: ATTEND Nurse Practitioner Adult Health
DX: E11.8 Type 2 diabetes mellitus with unspecified complications (principal); D50.9 Iron deficiency anemia, unspecified; Z86.79 Personal history of other diseases of the circulatory system
CPT/HCPCS: 36415; 80053; 80061; 83036; 85027; G0463

== ENCOUNTER → 2018-06-30 | Outpatient (CLI) | payer MEDICARE ==
[~2018-06-30] MED LIST changes: -/LINE60TA; -ASPI1TAB PO; -ASPI81CH PO; +ASPI81CH49 PO; +ASPI81TA26 PO; -CRES20TA PO; +CRES20TA2 PO; +ZYVO100T
--- NOTE | 2018-07-06 10:07 | SLEEPCENT ---
DATE OF PROCEDURE: 06/30/2018 ORDERING PROVIDER: Daphney Shelton NP Nocturnal polysomnography was performed for the titration of pressure therapy in this patient with obstructive sleep apnea syndrome. Apnea-hypopnea index 18.6. For testing, a ResMed Quattro full face mask of large size was used, 4 cm of water pressure were applied to the circuit, and the lights were extinguished. 7 hours and 30 minutes of data were reviewed. There are 408 minutes of sleep identified. Sleep latency was short at 4.5 minutes. Rapid eye movement (REM) latency was delayed at 259.5-minute. Sleep architecture improved late in the study. On optimal pressure therapy, there was two REM cycles noted. Overall sleep efficiency 94.9%. The electrocardiogram showed sinus rhythm with an average heart rate of 87 beats per minute. EEG showed normal waveforms for awake and sleep stages. Respiratory events were fully palliated with C-PAP at a pressure of 9. Remaining measures of sleep physiology were normal. IMPRESSION: Obstructive sleep apnea syndrome (G47.33). RECOMMENDATIONS: Nightly use of pressure therapy 9 cm of water.
== END ==
LOC: M SLEEP 19:34
PROVIDERS: ATTEND Nurse Practitioner Family
DX: G47.33 Obstructive sleep apnea (adult) (pediatric) (principal)

== ENCOUNTER 2018-07-20 17:12 | Emergency (ER) | payer MEDICARE ==
[~2018-07-20] VITALS: Ht 160 cm; Wt 118.2 kg
[2018-07-20 20:20] VITALS: BP 124/75
== END 2018-07-20 20:21 | disposition home or self-care (01) ==
LOC: M ED 17:12
DX: Z43.3 Encounter for attention to colostomy (principal); I25.2 Old myocardial infarction; E11.9 Type 2 diabetes mellitus without complications; J45.909 Unspecified asthma, uncomplicated; Z90.49 Acquired absence of other specified parts of digestive tract; Z79.82 Long term (current) use of aspirin; Z79.4 Long term (current) use of insulin; Z79.899 Other long term (current) drug therapy; Z88.2 Allergy status to sulfonamides; Z88.8 Allergy status to other drugs, medicaments and biological substances

== ENCOUNTER 2018-10-08 11:20 | Inpatient (IN) | payer MEDICARE ==
[~2018-10-08] VITALS: Ht 160 cm; Wt 101.2 kg
[2018-10-08] VITALS (15 sets, daily range): BP systolic 95–131; BP diastolic 54–75
[2018-10-08] MEDS ORDERED: PIPERACILLIN/TAZOBACTAM SOD 4.5 GM in D5W MINI-BAG PLUS 50 ML IV ONE (13:45)
[2018-10-08] MEDS ORDERED: NS 3,270 ML in APPROPRIATE DILUENT 1 EA IV ONE (13:45)
[2018-10-08 14:09] LABS: BASO # 0.1 10^3/uL (0.0-0.2); BASO % 0.4 % (0.0-1.0); EOS % 0.3 % (0.0-3.0); HEMATOCRIT 35.1 % (42.0-52.0); LYMPH # 1.3 10^3/uL (1.5-4.5); LYMPH % 10.8 % (24.0-44.0); MEAN CORPUSCULAR HEMOGLOBIN 22.9 pg (27.0-33.0); MEAN CORPUSCULAR HGB CONC 31.3 g/dl (32.0-36.5); MONO # 0.7 10^3/uL (0.0-0.8); MONO % 5.7 % (0.0-5.0); PLATELET COUNT, AUTOMATED 425 10^3/uL (150-450); RED BLOOD COUNT 4.81 10^6/uL (4.30-6.10); WHITE BLOOD COUNT 12.2 10^3/uL (4.0-10.0)
[2018-10-08 14:25] LABS: INR 1.23; PROTHROMBIN TIME 15.2 SECONDS (11.8-14.0)
[2018-10-08 14:26] LABS: PARTIAL THROMBOPLASTIN TIME 32.7 SECONDS (25.0-38.4)
[2018-10-08] MEDS ORDERED: HumuLIN R (REGULAR) INSULIN (NovoLIN R) **100U/ML** PER UNIT IV ONE (14:30)
[2018-10-08] MEDS ORDERED: LIDOCAINE 2% 5ML JELLY UROJET TOP ONE (14:45)
[2018-10-08] MEDS ORDERED: POTASSIUM CHLORIDE 10 MEQ SR TABLET PO ONE ×2 (14:45→18:00)
--- NOTE | 2018-10-08 14:56 | REP ---
REASON FOR EXAM: "Septic." The technique utilized in obtaining the radiograph has magnified the cardiac silhouette and accentuated the interstitial markings. Not all of the lung santos were included. The left CP angle is absent from the radiograph and one third of the right lower chest is absent from the radiograph. With that in mind, there is no other change compared to 04/08/2015. There is cardiomegaly. The imaged lung santos are clear. The imaged osseous structures are unchanged. IMPRESSION: Markedly limited exam, as described above. Electronically Signed by Lev Lopez DO 10/08/2018 03:22 P
[2018-10-08] MEDS ORDERED: NOREPINEPHRINE BITARTRATE 8 MG in D5W 492 ML IV SCH (15:14)
[2018-10-08] MEDS ORDERED: VANCOMYCIN HCL 1,000 MG, VIAL MATE ADAPTER 1 EACH in D5W 250 ML IV ONE (15:15)
[2018-10-08 15:25] LABS: ALBUMIN 1.7 GM/DL (3.2-5.2); ALT/SGPT 8 U/L (12-78); AMYLASE 25 U/L (25-115); BILIRUBIN,DIRECT 0.3 MG/DL (0.0-0.2); BILIRUBIN,TOTAL 0.6 MG/DL (0.2-1.0); BLOOD UREA NITROGEN 51 MG/DL (7-18); CALCIUM LEVEL 7.6 MG/DL (8.5-10.1); CARBON DIOXIDE LEVEL 19 MEQ/L (21-32); CHLORIDE LEVEL 87 MEQ/L (98-107); CK-MB VALUE MASS < 1.0 NG/ML (<3.6); CPK CREATINE PHOSPHOKINASE 23 U/L (39-308); CREATININE FOR GFR 2.44 MG/DL (0.70-1.30); GLOMERULAR FILTRATION RATE 30.3 (>60); GLUCOSE, FASTING 633 MG/DL (70-100); MB/CK RELATIVE INDEX 4.35 (< OR =4); POTASSIUM SERUM 3.3 MEQ/L (3.5-5.1); SODIUM LEVEL 120 MEQ/L (136-145); TOTAL PROTEIN 7.4 GM/DL (6.4-8.2); TROPONIN I < 0.02 NG/ML (< 0.10)
[2018-10-08 15:32] LABS: APPEARANCE, URINE TURBID (CLEAR); BACTERIA, URINE AUTO 3+ (NEGATIVE); BILIRUBIN, URINE AUTO NEGATIVE (NEGATIVE); BLOOD, URINE BLOOD 3+ (NEGATIVE); COLOR, URINE YELLOW (YELLOW); GLUCOSE, URINE (UA) AUTO 3+ mg/dL (NEGATIVE); KETONE, URINE AUTO NEGATIVE (NEGATIVE); LEUKOCYTE ESTERASE, URINE AUTO 2+ (NEGATIVE); NITRITE, URINE AUTO NEGATIVE (NEGATIVE); PROTEIN, URINE AUTO 2+ mg/dL (NEGATIVE); RBC, URINE AUTO TNTC /HPF (0-3); SPECIFIC GRAVITY URINE AUTO 1.006 (1.002-1.035); SQUAMOUS EPITHELIAL CELL UR AU 0 /HPF (0-6); UROBILINOGEN, URINE AUTO 0.2 mg/dL (0.0-2.0); WBC, URINE AUTO TNTC /HPF (0-3)
--- NOTE | 2018-10-08 15:35 | REP ---
HISTORY: Previous history of pancreatitis. Intravenous contrast was withheld secondary to the patient's high creatinine level. All 27 of the latest prior examinations have been reviewed, the latest of which is dated 04/08/2015. The lung bases are unchanged from 04/08/2015. The latest prior was an incomplete examination and the next latest prior to compare from the exam is 02/12/2015. The lung bases are also unchanged from that exam. Limited evaluation of the liver and spleen show splenomegaly, otherwise no change from the prior exam. Limited evaluation of the pancreas and adrenal glands show no gross abnormalities. There is bilateral perinephric stranding, right much greater than left and the right kidney appears enlarged. This represents a change from the latest prior exam. Small isolated fluid collections within or adjacent to Gerota's fascia cannot be excluded. There is an anterior abdominal wall hernia through which bowel protrudes. There is no evidence of intestinal obstruction. There is no evidence of free fluid or free air. There is a right-sided colostomy site, which has been placed since the prior exam. There is periaortic adenopathy which has developed since the prior exam. CT PELVIS: There is air density in the pelvic floor soft tissues. This is seen in conjunction with an area of abnormal soft tissue thickening and skin thickening in the posterior midline and right perineal region. This represents a change from the prior exam. There is evidence of inguinal adenopathy, which has developed since the last exam. There is pelvic sidewall adenopathy which has developed since the last exam. Bone window technique throughout the exam shows a destructive process involving the right femoral head with near complete lysis. This is seen in conjunction with a right hip joint effusion. This represents a significant change from the prior exam. There is also CT evidence of a slight left hip joint effusion. IMPRESSION: 1. There are multiple abnormalities. There is evidence to suggest a decubitus ulcer in the right posterior pelvic soft tissues with extension into the pelvic floor perineal region with abnormal air densities and soft tissue density as described above. Surgical consultation is suggested. 2. There is extreme muscular wasting. 3. There is adenopathy as described above. 4. There is enlargement of the right kidney with suspected tiny fluid collections within and surrounding Gerota's fascia. Pyelonephritis cannot be ruled out and should be clinically evaluated for. Perirenal abscess cannot be ruled out. 5. A ventral hernia as described above. 6. Right-sided colostomy. 7. There is abnormal thickening of the urinary bladder wall which needs to be clinically evaluated for. Cystitis cannot be ruled out. 8. Splenomegaly. 9. Destructive process involving the proximal right femur and likely portions of the right acetabulum as well representing a change from the latest prior. Osteomyelitis cannot be ruled out. 10. Other findings as described above. Electronically Signed by Lev Lopez DO 10/08/2018 03:46 P
[2018-10-08 15:55] LABS: INFLUENZA A AMPLIFICATION NEGATIVE (NEGATIVE); INFLUENZA B AMPLIFICATION NEGATIVE (NEGATIVE)
--- NOTE | 2018-10-08 16:08 | HPEPDOC ---
General Date of Admission Date of Service: Oct 08, 2018 Chief Complaint The patient is a 48-year-old male admitted with a reason for visit of SICK. History of Present Illness This is a 48 yo male with multiple pmhx who came to the ED for feeling dehydration - dry mouth and throat. Patient has a large decubitus ulcer that is malodorous with necrotic tissue and possibly. In ed after receiving IVF, patient's BP was still low, so he was started on levophed. Patient denied fever, chills, chest pain, sob, nausea, vomiting or diarrhea. PAST MEDICAL HISTORY SPINAL BIFIDA-WHEELCHAIR BOUND HISTORY OF CAD MORBID OBESITY GERD DEPRESSION DYLIPIDEMIA DM2 WITH INSULIN MUNIRA ON CPAP MICROCYTIC ANEMIA,STABLE CHRONIC BILATERAL SACRAL DECUBITUS AND GROIN WOUNDS/SKIN MACERATION BLEEDING BUTTOCK WOUNDS SECONDARY TO ANTICOAGULATION WHILE ON COUMADIN. URINARY RETENSION WITH CHRONIC 18FR HARP COLOSTOMY HX MRSA INFECTIONS MEDICAL NONCOMPLIANCE HISTORY OF DVT AND PULMONARY EMBOLISM ALLERGIES BACTRIM: HIVES - SIDE EFFECTS SURGICAL HISTORY FISTULA X 2 2018 FAMILY HISTORY PATIENT WAS ADOPTED AND DOESN'T HAVE ANY INFORMATION ABOUT PARENTS. SOCIAL HISTORY GENERAL: TOBACCO USE ARE YOU A:FORMER SMOKER HOW LONG HAS IT BEEN SINCE YOU LAST SMOKED?5-10 YEARS ROS - all 14 point review of system is negative except for whats listed in HPI Physical exam Gen: NAD, healthy appearing , HEENT: normocephalic, atraumatic, no discharge from ears or nose, no oropharyngeal erythema or exudate, neck is supple, no lymphadenopathy, trachea midline CVS: RRR, normal S1n S2, no murmur, rubs, or gallops, 1+ edema, no jvd Resp: LCTAB, no rhonchi, wheezes or crackles Abd : soft nontender, normal bowel sounds, no rebound tenderness or guarding MSK: paraplegic from spina bifida, wheelchair bound, upper extremities 5/5 in strength skin- right heel ulcer stage 2, unstageable, pelvic fungal rash with small stage 2 ulcer Neuro: no confusion, paraplegic Psych: normal mood and affect, good judgment Assessment and Plan Septic shock -likely 2/2 infected ulcers and likely OM -c/w vanc and zosyn and clinda -currently on levophed - titrate to MAP of 65 -c/w ivf -wound debridement - surgery consulted -Spoke with Billy Burgess- he said he is aware of the patient, he also saw him in the ED and went over the CT scan - he rec to c/w abx and control blood sugar, he will likely take him to the OR on Thursday. I communicated this with Dr. Farmer. -case mgt consulted - lives with , but said he takes care of himself mostly -f/u wound cx, blood cx and urine cx Darrius c/w ivf avoid nephrotoxic agents UA positive for UTI f/u ucx c/w abx Hyponatremia -corrected for hyperglycemia - 133 -with the correction of hypokalemia with kcl in ns - pt's sodium went up from 133 to 142, so fluid was changed to 1/2 NS an kcl - f/u repeat bmp -q6h Hyperglycemia corrected AG 19.8 possibly DKA f/u acetone abg reviewed s/p insulin in ed will start drip once potassium is higher c/w ISS for now bmp q6h Hx of DVT on eliquis According to the nurse Olesya - Dr. Farmer is managing this patient and she will call her for everything re further mgt. Home Medications Scheduled Apixaban (Eliquis) 5 Mg Tablet, 5 MG PO BID, (Reported) Aspirin (Aspirin) 81 Mg Tab.chew, 81 MG PO DAILY, (Reported) Carvedilol (Carvedilol) 6.25 Mg Tab, 6.25 MG PO BID, (Reported) Insulin Glargine,Hum.rec.anlog (Basaglar Kwikpen U-100) 100 Unit/Ml Inj, 20 UNIT SC DAILY, (Reported) Insulin Human Lispro (Humalog) 1 Units/0.01 Ml Inj, 30 UNITS SC AC, (Reported) Lisinopril (Lisinopril) 5 Mg Tablet, 5 MG PO DAILY, (Reported) Magnesium l-Lactate (Mag-Tab Sr) 84 Mg Tab, 84 MG PO TID, (Reported) Multivitamins (Thera M Plus Tablet) 1 Tab Tab, 1 TAB PO DAILY, (Reported) Pantoprazole Sodium (Pantoprazole Sodium) 40 Mg Tab, 40 MG PO DAILY, (Reported) Rosuvastatin Calcium (Crestor) 20 Mg Tab, 20 MG PO QHS, (Reported) Sertraline HCl (Sertraline HCl) 100 Mg Tab, 100 MG PO DAILY, (Reported) Scheduled PRN Acetaminophen (Acetaminophen) 325 Mg Tablet, 650 MG PO Q4H PRN for PAIN, (Reported) Albuterol Sulfate (Ventolin Hfa) 108 Mcg/Act Aer, 2 PUFFS INH Q4H PRN for SHORTNESS OF BREATH, (Reported) Nitroglycerin (Nitrostat) 0.4 Mg Subl, 0.4 MG SL NITRO PRN for CHEST PAIN, (Reported) Allergies Coded Allergies: Sulfa (Sulfonamide Antibiotics) (Verified Adverse Reaction, Unknown, itching, 07/20/18) sulfamethoxazole (Verified Adverse Reaction, Unknown, itching, 07/20/18) trimethoprim (Verified Adverse Reaction, Unknown, itching, 07/20/18) A-FIB/CHADSVASC A-FIB History Current/History of A-Fib/PAF?: No Current PO Anticoag Therapy: Yes Age/Risk Factor Scoring CHADSVASC: CHADSVASC Response (Comments) Value Age Risk Factor Age < 65 years old 0 Gender Risk Factor Male 0 Hx of CHF Yes 1 Hx of HTN Yes 1 Hx of Stroke/TIA/or VTE No 0 Hx of Diabetes Yes 1 Hx of Vascular Disease No 0 Total 3 Treatment Treatment ordered: Apixaban Vital Signs Vital Signs Date Time Temp Pulse Resp B/P (MAP) Pulse Ox O2 Delivery O2 Flow Rate FiO2 10/08/18 14:35 95 100 10/08/18 14:15 91/55 (67) 10/08/18 11:21 98.1 20 Room Air Laboratory Data Labs 24H Laboratory Tests 2 10/08/18 13:53: Immature Granulocyte % (Auto) 0.8, White Blood Count 12.2H, Red Blood Count 4.81, Hemoglobin 11.0L, Hematocrit 35.1L, Mean Corpuscular Volume 73.0L, Mean Corpuscular Hemoglobin 22.9L, Mean Corpuscular Hemoglobin Concent 31.3L, Red Cell Distribution Width 16.3H, Platelet Count 425, Neutrophils (%) (Auto) 82.0H, Lymphocytes (%) (Auto) 10.8L, Monocytes (%) (Auto) 5.7H, Eosinophils (%) (Auto) 0.3, Basophils (%) (Auto) 0.4, Neutrophils # (Auto) 10.0H, Lymphocytes # (Auto) 1.3L, Monocytes # (Auto) 0.7, Eosinophils # (Auto) 0.0, Basophils # (Auto) 0.1, Nucleated Red Blood Cells % (auto) 0.0, Prothrombin Time 15.2H, Prothromb Time International Ratio 1.23, Activated Partial Thromboplast Time 32.7, Anion Gap 14, Glomerular Filtration Rate 30.3L, Lactic Acid Level 2.0, Calcium Level 7.6L, Aspartate Amino Transf (AST/SGOT) 4L, Alanine Aminotransferase (ALT/SGPT) 8L, Alkaline Phosphatase 140H, Total Bilirubin 0.6, Direct Bilirubin 0.3H, Total Creatine Kinase 23L, Creatine Kinase MB < 1.0, Creatine Kinase MB Relative Index 4.35H, Troponin I < 0.02, C-Reactive Protein, Quantitative 25.00H, Total Protein 7.4, Albumin 1.7L, Albumin/Globulin Ratio 0.30L, Amylase Level 25 10/08/18 14:08: POC Glucose (Misc Panel) 626*H, POC Sodium (Misc Panel) 119*L, POC Potassium (Misc Panel) 2.9*L, POC Chloride (Misc Panel) 86L, POC Total CO2 (Misc Panel) 17.0L, POC Blood Urea Nitrogen (Misc Panel 46H, POC Ionized Calcium (Misc Panel) 4.3L, POC Creatinine (Misc Panel) 2.2H, POC Hematocrit (Misc Panel) 39.0 10/08/18 14:30: POC Total CO2 (Misc Panel) 14.0L, POC pH (Misc Panel) 7.341L, POC Base Excess (Misc Panel) -13.0L, POC Saturated Percent O2 (Misc) 97, POC pO2 (Misc Panel) 97.0, POC pCO2 (Misc Panel) 24.4L, POC HCO3 (Misc Panel) 13.2L 10/08/18 15:15: Urine Appearance TURBIDH, Urine Color YELLOW, Urine pH 6.0, Urine Specific [place] 1.006, Urine Protein 2+H, Urine Glucose (UA) 3+H, Urine Ketones NEGATIVE, Urine Urobilinogen 0.2, Urine Bilirubin NEGATIVE, Urine Leukocyte Katarina rase 2+H, Urine Blood 3+H, Urine Nitrite NEGATIVE, Urine WBC (Auto) TNTCH, Urine RBC (Auto) TNTCH, Urine Hyaline Casts (Auto) 0, Urine Bacteria (Auto) 3+H, Urine Squamous Epithelial Cells 0, Urine Sperm (Auto) , Influenza Type A (RT-PCR) NEGATIVE, Influenza Type B (RT-PCR) NEGATIVE CBC/BMP Laboratory Tests 10/08/18 13:53 Red Blood Count 4.81, Mean Corpuscular Volume 73.0 L, Mean Corpuscular Hemoglobin 22.9 L, Mean Corpuscular Hemoglobin Concent 31.3 L, Red Cell Distribution Width 16.3 H, Neutrophils (%) (Auto) 82.0 H, Lymphocytes (%) (Auto) 10.8 L, Monocytes (%) (Auto) 5.7 H, Eosinophils (%) (Auto) 0.3, Basophils (%) (Auto) 0.4, Neutrophils # (Auto) 10.0 H, Lymphocytes # (Auto) 1.3 L, Monocytes # (Auto) 0.7, Eosinophils # (Auto) 0.0, Basophils # (Auto) 0.1 Microbiology Microbiology 10/08/18 Blood Culture, Received Pending 10/08/18 Blood Culture, Received Pending 10/08/18 Urine Culture, Received Pending 10/08/18 Wound Culture, Received Pending 10/08/18 Wound Culture, Received Pending Plan / VTE VTE Prophylaxis Ordered?: Yes DANNY MCKEON MD Oct 08, 2018 16:08
[2018-10-08] MEDS ORDERED: ACETAMINOPHEN TAB 650MG DOSE (2X325MG) PO PRN (16:15)
[2018-10-08] MEDS ORDERED: NS 1,000 ML IV ONE (17:45)
[2018-10-08] MEDS ORDERED: ELIQ5TAB PO (17:46)
[2018-10-08] MEDS ORDERED: ACET-908 PO (17:46)
[2018-10-08] MEDS ORDERED: LISI-542 PO (17:46)
[2018-10-08] MEDS ORDERED: ASPI81CH33 PO (17:47)
[2018-10-08 18:14] LABS: HEMOGLOBIN A1c 15.4 %
[2018-10-08] MEDS ORDERED: GLUCAGON FOR INJ 1 MG VIAL (J1610) SC PRN (18:15)
[2018-10-08] MEDS ORDERED: DEXTROSE 50% 50 ML SYRINGE IV PRN (18:15)
[2018-10-08] MEDS ORDERED: NS 1,000 ML IV SCH (18:15)
[2018-10-08] MEDS ORDERED: GLUCOSE 4 GM CHEW TABLET PO PRN (18:15)
[2018-10-08] MEDS ORDERED: PIPERACILLIN/TAZOBACTAM SOD 3.375 GM in D5W MINI-BAG PLUS 50 ML IV SCH (19:00)
[2018-10-08] MEDS ORDERED: KCL 40MEQ in NS 1000ML 1,000 ML IV SCH (19:00)
[2018-10-08] MEDS ORDERED: LIDOCAINE 1% MDV 20ML VIAL As Ordered ONE (20:52)
[2018-10-08 20:54] LABS: CALCIUM LEVEL 6.7 MG/DL (8.5-10.1); CREATININE FOR GFR 1.83 MG/DL (0.70-1.30); GLOMERULAR FILTRATION RATE 42.3 (>60); MAGNESIUM LEVEL 1.4 MG/DL (1.8-2.4); POTASSIUM SERUM 3.1 MEQ/L (3.5-5.1)
[2018-10-08] MEDS ORDERED: NS IV STA (20:55)
[2018-10-08] MEDS ORDERED: MAG SULF IV STA (20:55)
[2018-10-08] MEDS ORDERED: LIDOCAINE 4% CREAM 5GM (LMX4) TOP PRN (21:00)
[2018-10-08] MEDS: DOCUSATE SODIUM 100 MG CAP PO SCH (21:00)
[2018-10-08] MEDS ORDERED: MAG SULF IV SCH (21:00)
[2018-10-08] MEDS ORDERED: CLINDAMYCIN 900 MG in APPROPRIATE DILUENT 1 EA IV SCH (21:00)
[2018-10-08] MEDS ORDERED: NS IV SCH (21:00)
[2018-10-08] MEDS: MORPHINE 4 MG/ML 1ML VIAL/SYRINGE (J2270) IV PRN (21:03)
[2018-10-08] MEDS ORDERED: HumuLIN R (REGULAR) INSULIN (NovoLIN R) **100U/ML** PER UNIT SQ ONE (21:15)
[2018-10-08] MEDS ORDERED: [UNRECOGNIZED DRUG - REMARK] XX SCH (21:30)
[2018-10-08] MEDS ORDERED: MORPHINE 4 MG/ML 1ML VIAL/SYRINGE (J2270) IV ONE (21:36)
[2018-10-08] MEDS ORDERED: VANCOMYCIN HCL 1,000 MG, VIAL MATE ADAPTER 1 EACH in NS 250 ML IV ONE (21:45)
[2018-10-08] MEDS ORDERED: LIDOCAINE 1% MDV 20ML VIAL SC ONE (22:00)
[2018-10-08] MEDS ORDERED: KCL 20MEQ IN 100ML SWI (KRUN) 20 MEQ in APPROPRIATE DILUENT 1 EA IV ONE ×2 (22:15)
[2018-10-08] MEDS: POTASSIUM CHLORIDE INJ 40 MEQ in NS 0.45% 1,000 ML IV SCH (22:16)
[2018-10-08] MEDS: MAG SULF IV SCH ×2 (22:17→23:21)
[2018-10-08] MEDS: NS IV SCH ×3 (22:17→23:21)
[2018-10-08] MEDS: NOREPINEPHRINE BITARTRATE IV SCH (22:55)
[2018-10-08] MEDS ORDERED: INSULIN HUMAN REGULAR 100 UNITS in NS 99 ML IV SCH (23:00)
[2018-10-08] MEDS ORDERED: PIPERACILLIN/TAZOBACTAM SOD 2.25 GM in D5W MINI-BAG PLUS 50 ML IV SCH (23:00)
[2018-10-08] MEDS: APIXABAN 5 MG TAB (ELIQUIS) PO SCH (23:07)
[2018-10-08] MEDS: NYSTATIN 100,000 UNITS/GM TOPICAL PWD 15 GM TOP SCH (23:08)
[2018-10-09] VITALS (25 sets, daily range): BP systolic 84–109; BP diastolic 51–68
[2018-10-09] MEDS: PIPERACILLIN/TAZOBACTAM SOD 3.375 GM in NS MINI-BAG PLUS 50 ML IV SCH ×2 (00:03→05:19)
[2018-10-09] MEDS: CLINDAMYCIN 900 MG in NS 100 ML IV SCH ×4 (01:21→23:24)
[2018-10-09] MEDS: MORPHINE 4 MG/ML 1ML VIAL/SYRINGE (J2270) IV PRN ×7 (01:27→23:44)
[2018-10-09 01:36] LABS: VENOUS BASE EXCESS -11.6 (-2.0-2.0); VENOUS O2 SATURATION 95.5 % (60.0-80.0); VENOUS PARTIAL PRESSURE CO2 30.6 mmHg (38.0-50.0); VENOUS PH 7.278 UNITS (7.330-7.430); VENOUS STANDARD HCO3 15.2 MEQ/L; VENOUS TOTAL CO2 14.9 MEQ/L (24.0-28.0)
[2018-10-09 01:57] LABS: MAGNESIUM LEVEL 2.1 MG/DL (1.8-2.4)
[2018-10-09 02:07] LABS: BLOOD UREA NITROGEN 40 MG/DL (7-18); CALCIUM LEVEL 6.8 MG/DL (8.5-10.1); CARBON DIOXIDE LEVEL 16 MEQ/L (21-32); CHLORIDE LEVEL 108 MEQ/L (98-107); CREATININE FOR GFR 1.49 MG/DL (0.70-1.30); GLOMERULAR FILTRATION RATE 53.6 (>60); GLUCOSE, FASTING 537 MG/DL (70-100); POTASSIUM SERUM 3.7 MEQ/L (3.5-5.1); SODIUM LEVEL 135 MEQ/L (136-145); TROPONIN I < 0.02 NG/ML (< 0.10)
[2018-10-09] MEDS: INSULIN IV RATE CHANGE DOCUMENTATION ML/HR XX SCH ×9 (04:15→12:13)
[2018-10-09] MEDS: POTASSIUM CHLORIDE INJ 40 MEQ in NS 0.45% 1,000 ML IV SCH (04:16)
[2018-10-09] MEDS ORDERED: KCL 20MEQ IN D5/0.45NS 1000ML 1,000 ML IV SCH (06:30)
[2018-10-09 06:32] LABS: HEMATOCRIT 31.8 % (42.0-52.0); HEMOGLOBIN 9.9 g/dl (13.5-17.5); MEAN CORPUSCULAR HEMOGLOBIN 22.9 pg (27.0-33.0); MEAN CORPUSCULAR HGB CONC 31.1 g/dl (32.0-36.5); MEAN CORPUSCULAR VOLUME 73.4 fl (80.0-96.0); PLATELET COUNT, AUTOMATED 404 10^3/uL (150-450); RED BLOOD COUNT 4.33 10^6/uL (4.30-6.10); WHITE BLOOD COUNT 13.6 10^3/uL (4.0-10.0)
--- NOTE | 2018-10-09 06:36 | CR ---
DATE OF CONSULTATION: 10/08/2018 The patient is a 48-year-old male with a history of spina bifida who is paraplegic with a history of multiple previous hospitalizations for major abdominal surgeries due to incarcerated hernias with unsuccessful repairs. He also has a history of chronic decubitus ulcers in his heels as well as sacral decubitus ulcers. He has a history of coronary artery disease (CAD) with previous myocardial infarction (AZ), morbid obesity, insulin dependent diabetes, depression, gastroesophageal reflux disease (GERD), hyperlipidemia, obstructive sleep apnea on C-PAP, history of deep vein thrombosis (DVT) on anticoagulation, history of urinary retention with prior Cornejo, and previous history of methicillin-resistant Staphylococcus aureus (MRSA) who presents now with a complaint of sore throat, feeling of dry mouth and dehydration. In the emergency department (ED) he was noted to be hypotensive as well as with elevated fingerstick glucose and with a large decubitus ulcer with what appears to be some necrotic tissue and some drainage. He was given IV fluid boluses in the ED of 30ml/kg, but continued to be hypotensive and was started on peripheral Levophed. He was also given broad-spectrum antibiotics with vancomycin and Zosyn as well as insulin 10 units IV. The patient was admitted to the intensive care unit (ICU) for further management. He currently denies any chest pain. No increased shortness of breath. No coughing or wheezing. He has not had any fevers or chills and he denies any nausea, vomiting or abdominal pain, although he is tender on abdominal exam. He does report some more loose bowel movements in his colostomy bag recently. He denies any increased lower extremity edema or abdominal distention. The patient reports that his current acute worsening of the decubitus ulcers has only been recently, however, when speaking with the patient's brother, he has been living in an apartment since the end of January that is not wheelchair accessible and he is unable to actually access the shower there and so has been unable to take any showers or bath for the past few months and has only been using wipes for cleaning. PAST MEDICAL AND SURGICAL HISTORY: 1. Spinal bifida, wheelchair bound. 2. History of CAD and AZ. 3. Morbid obesity. 4. Gastroesophageal reflux disease. 5. Hyperlipidemia. 6. Depression. 7. Insulin dependent diabetes. 8. MUNIRA on C-PAP. 9. History of multiple abdominal surgeries secondary to incarcerated hernia with status post colostomy. 10. Chronic sacral decubitus and groin wounds. 11. Urinary retention with chronic Cornejo. 12. History of breast infection. 13. History of DVT and pulmonary embolism on anticoagulation. 14. Fistula surgery. HOME MEDICATIONS: - Eliquis - aspirin 81 mg - carvedilol - Lantus - lispro - magnesium - multivitamin - pantoprazole - rosuvastatin - sertraline - albuterol p.r.n. - cyclobenzaprine p.r.n. - nitroglycerin p.r.n. - Tylenol p.r.n. ALLERGIES: BACTRIM. FAMILY HISTORY: The patient was adopted and does not have any information about his parents. SOCIAL HISTORY: Former smoker, last smoked 5-10 years ago. PHYSICAL EXAMINATION: Temperature 98.1, pulse 92, respirations 18, blood pressure 112/61, O2 sat 97-99% on room air. General: The patient is a morbidly obese male who is lying in bed and some discomfort from pain secondary to his decubitus ulcers. He is alert and oriented and not using any accessory muscles for respiration. HEENT: Normocephalic, atraumatic. Pupils are reactive to light bilaterally. Dry mucous membranes. Neck is supple. No palpable adenopathy. No jugular venous distention (JVD) noted. Cardiovascular: Regular rate and rhythm. Normal S1 and S2. Faint murmur auscultated. Lungs: Clear to auscultation bilaterally. No wheezing, rales or rhonchi. Abdomen is obese. There are multiple healed surgical incisions in his abdomen with a colostomy in the right side. There is greenish brown stool the colostomy bag. There is some tenderness to palpation in his abdomen diffusely. Lower Extremities: There is no lower extremity edema noted bilaterally. He has some heel ulcers, one of which has some blackened skin discoloration. Skin: In the inguinal area, he has redness and swelling around his genitals which are very tender to palpation. Posteriorly in his buttocks region he has very macerated skin with the malodorous discharge as well as areas of necrosis. LABORATORY DATA: WBC 12.2, hemoglobin 11.0, platelets 425. Chemistry on admission: Sodium is 120, potassium is 3.3, chloride is 87, bicarb is 19, anion gap 14, BUN 51, creatinine 2.44, glucose 633, lactic acid 2.0, AST and ALT within normal limits. Troponin was negative. CRP elevated at 25. ABG on admission with pH of 7.341, pCO2 of 24.4 and pO2 of 97. INR was 1.23. Beta hydroxybutyrate was elevated at 21.65. Urine and was positive for protein, glucose, blood and bacteria. It was negative for nitrites and positive for leukocyte esterase. IMAGING: Abdomen and pelvis CT showed evidence of decubitus ulcer in the right posterior pelvic soft tissue with extension into the pelvic floor, perineal region with abnormal air density and soft tissue density. There is evidence of inguinal adenopathy and pelvic sidewall adenopathy. There is a destructive process involving the proximal right femur and likely portions of the right acetabulum which is changed from the previous imaging study in 2016. There is splenomegaly and there is enlargement of the right kidney with a tiny fluid collection within and surrounding Gerota fascia, pyelonephritis cannot be ruled out, and a perirenal abscess cannot be ruled out. There is a ventral hernia and a right sided colostomy noted. There is abnormal thickening of urinary bladder wall. ASSESSMENT/PLAN: Mr. Bills is a 48-year-old male with a past medical history of spina bifida, paraplegia, previous multiple abdominal surgeries with a colostomy, history of uncontrolled insulin dependent diabetes, hyperlipidemia, morbid obesity, MUNIRA on C-PAP, history of chronic sacral decubitus wounds, urinary retention with previous Cornejo, history of MRSA, history of DVT and PE on anticoagulation, who presented with complaints of dry mouth and feeling dehydrated. He was noted on admission to be hypotensive with leukocytosis as well as clinically with evidence of infected sacral and groin decubitus ulcers. The patient was hypotensive despite fluid resuscitation and was started on Levophed for septic shock. His CT of abdomen and pelvis also suggests possible osteomyelitis in his right femur and hip as well as possible pyelonephritis or perirenal abscess. His UA was grossly positive. The patient was started on broad-spectrum antibiotics with vancomycin and Zosyn and brought to the ICU for further management. 1. Septic shock secondary to decubitus ulcers as well as possible osteomyelitis and pyelonephritis/urinary tract infection (UTI). The CT abdomen also shows evidence of some air densities within the soft tissue in the perineal region concerning for possible gas forming organisms and necrotic cellulitis although may also be from tracking/fistulas from his large decubitus - Would continue with vancomycin and Zosyn. Will also add clindamycin given his history of MRSA and concern for necrotic cellulitis. - Would follow up surgery recommendations about wound care and debridement. - Would continue with wound care dressing and can use lidocaine topically for some of the pain, especially with dressing. - Continue with morphine p.r.n. for pain control. - Continue with Levophed. A right internal jugular (IJ) central line was placed for administration of vasopressors and will titrate to maintain MAP above 65. - Will repeat cardiac enzymes and will also followup an echo. He has a previous history of AZ and coronary artery disease and he has risk for demand ischemia. - Will follow up results of his blood cultures and narrow antibiotics as appropriate. - Will hold his antihypertensive medications in the setting of his shock. Diabetic ketoacidosis (DKA) likely secondary to his septic shock. - The patient was given IV fluids with normal saline. His repeat sodium after being corrected for the hyperglycemia shows a normal sodium, therefore, will change him to half normal saline (NS) and will give potassium given his hypokalemia. - The patient's magnesium level was also low. Will replete magnesium before giving additional potassium supplementation. Will need to replete his potassium until it is above 3.3 so that he can be started on insulin drip with fingerstick glucose every 1 hour with DKA protocol. - His initial ABG did not show significant acidosis. Will followup with VBG to continue to monitor his pH with the DKA. - Will continue with BMPs every 4 hours with the DKA protocol. - Will give additional Kcl 20 mEq via the central line as well as oral potassium 40 mEq and followup his repeat potassium. - Will also check phosphorus level and replete if needed. - The patient will be nothing by mouth (n.p.o.) given his DKA. Acute kidney injury (CASTRO) likely in the setting of hypovolemia from his DKA. - Continue monitoring his renal function and ins and outs with the Cornejo. - The patient's initial hyponatremia was pseudohyponatremia in the setting of his hyperglycemia. Will continue to monitor his electrolytes and replete as needed. DVT prophylaxis on anticoagulation with Eliquis GI prophylaxis with pantoprazole. Full code. Healthcare proxy is his brother. Total critical care time spent, not including any procedures approximately 2 hours and 20 minutes. CARLOSD
--- NOTE | 2018-10-09 06:56 | RO ---
DATE OF PROCEDURE: 10/08/2018 CENTRAL LINE PROCEDURE NOTE INDICATION: Vasopressor administration. PREPROCEDURE DIAGNOSIS: Septic shock. POSTPROCEDURE DIAGNOSIS: Septic shock. ATTENDING PHYSICIAN: Dr. Farmer Consent was obtained from the patient prior to the procedure. Indication, risks and benefits were explained at length. PROCEDURE SUMMARY: A central line insertion processes form was completed by independent observer. full time-out was performed prior to the procedure. Full sterile technique was maintained throughout the procedure including surgical cap, mask with protective eye wear, full gown and sterile gloves. The patient was placed in Trendelenburg position. The right neck region was prepped using chlorhexidine scrub and draped in sterile fashion using a fenestrated drape and a sterile probe cover was employed. The right internal jugular vein was identified using the ultrasound. Anesthesia was achieved over vein using 1% lidocaine. Using real time out of plane guidance the introducer needle was inserted to the internal jugular vein under direct ultrasound visualization. Venous blood was withdrawn. The syringe was removed and a guidewire was advanced into the introducer needle. The introducer needle was removed over the guidewire and a small incision was made at skin surface with a scalpel. A dilator was exchanged over the guidewire and after appropriate dilation was obtained the dilator was exchanged over the wire for a triple lumen central venous catheter. The wire was removed and the catheter was sutured in place at 18 cm. A sterile chlorhexidine impregnated dressing was placed over the catheter at the insertion site. The patient tolerated procedure without any hemodynamic compromise. At time of procedure the patient had all ports aspirated and flushed properly. Postprocedure chest x-ray showed the central line in appropriate position in the superior vena cava (SVC) and no pneumothorax.
[2018-10-09 06:57] LABS: CALCIUM LEVEL 7.4 MG/DL (8.5-10.1); CREATININE FOR GFR 1.36 MG/DL (0.70-1.30); GLOMERULAR FILTRATION RATE 59.5 (>60); MAGNESIUM LEVEL 1.8 MG/DL (1.8-2.4); POTASSIUM SERUM 3.5 MEQ/L (3.5-5.1)
[2018-10-09] MEDS ORDERED: HumaLOG INSULIN (NovoLOG) PER UNIT SC SCH (07:30)
--- NOTE | 2018-10-09 07:39 | REP ---
Portable chest, 10:04 p.m., single AP view with the patient upright, post central line placement: Comparison is from 01:56 p.m. earlier today. There is a right IJ central venous catheter with the tip in the superior vena cava in satisfactory location. There is no pneumothorax or hemothorax. Lung santos are clear. Cardiac size is normal. The patient has a known a huge hiatal hernia projected above the right hemidiaphragm. Electronically Signed by Javed Calderon MD 10/09/2018 07:31 A
[2018-10-09] MEDS: DOCUSATE SODIUM 100 MG CAP PO SCH ×2 (08:17→19:22)
[2018-10-09] MEDS: PANTOPRAZOLE 40MG INJ (PROTONIX) (C9113) IV SCH (08:26)
[2018-10-09] MEDS: MULTIVITAMINS/MINERALS THERAP 1 TAB PO SCH (08:26)
[2018-10-09] MEDS: NYSTATIN 100,000 UNITS/GM TOPICAL PWD 15 GM TOP SCH ×2 (08:26→19:36)
[2018-10-09] MEDS: APIXABAN 5 MG TAB (ELIQUIS) PO SCH ×2 (08:26→19:49)
[2018-10-09] MEDS: NOREPINEPHRINE BITARTRATE IV SCH ×4 (08:34→17:11)
[2018-10-09] MEDS: NS IV SCH ×4 (08:34→17:11)
--- NOTE | 2018-10-09 09:34 | ECGEPIP ---
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
[2018-10-09] MEDS ORDERED: D5W 1,000 ML IV SCH (10:00)
[2018-10-09] MEDS ORDERED: SODIUM CHLORIDE 0.9% 1000ML IV ONE (10:00)
[2018-10-09] MEDS ORDERED: MAG SULF 1GM/100ML (MAG RUN) 1 GM in APPROPRIATE DILUENT 1 EA IV ONE ×2 (10:00→12:00)
[2018-10-09] MEDS: PIPERACILLIN/TAZOBACTAM SOD 3.375 GM in D5W MINI-BAG PLUS 50 ML IV SCH ×3 (10:08→22:30)
[2018-10-09 11:03] LABS: BLOOD UREA NITROGEN 32 MG/DL (7-18); CALCIUM LEVEL 6.8 MG/DL (8.5-10.1); CARBON DIOXIDE LEVEL 16 MEQ/L (21-32); CHLORIDE LEVEL 117 MEQ/L (98-107); CREATININE FOR GFR 1.22 MG/DL (0.70-1.30); GLOMERULAR FILTRATION RATE > 60.0 (>60); GLUCOSE, FASTING 154 MG/DL (70-100); MAGNESIUM LEVEL 1.6 MG/DL (1.8-2.4); POTASSIUM SERUM 3.2 MEQ/L (3.5-5.1); SODIUM LEVEL 140 MEQ/L (136-145)
[2018-10-09] MEDS ORDERED: LEVEMIR (INSULIN DETEMIR) 1 UNITS/0.01ML SC ONE (11:45)
[2018-10-09] MEDS: HumaLOG INSULIN (NovoLOG) PER UNIT SC SCH ×4 (12:00→23:24)
[2018-10-09] MEDS: KCL 20MEQ IN 100ML SWI (KRUN) 20 MEQ in APPROPRIATE DILUENT 1 EA IV SCH ×4 (12:12→14:12)
--- NOTE | 2018-10-09 12:33 | CCN ---
DATE: 10/11/2018 The patient was seen and examined this morning during bedside rounds. He has been able to be decreased on the Levophed, initially was on 20 mcg/minute and is now down to 2 mcg/minute. The patient has not had any fevers overnight. He has had good urine output. He currently denies any chest pain. No shortness of breath. No wheezing or coughing. He has no abdominal pain. No nausea or vomiting. He does have pain from his decubitus ulcers with movement. PHYSICAL EXAMINATION: Temperature 98.1, pulse 92, respirations 18, blood pressure 101/61, O2 sat 99% on room air. Ins 4.6 liters, out 1.6 liters, positive 2.9 liters. Since this morning, he has had an additional 2 liters output and since midnight he is negative 1.2 liters. General: The patient is a morbidly obese male who is lying in bed in no acute distress. He is alert and oriented. He is not using any accessory muscles for respiration. HEENT: Normocephalic, atraumatic. Pupils are reactive to light bilaterally. Mucous membranes are moist. Neck is supple. No palpable adenopathy and no jugular venous distention (JVD). Cardiovascular: Regular rate and rhythm. Normal S1 and S2. Faint murmur auscultated. Lungs: Clear to auscultation anteriorly bilaterally. No wheezing, rales or rhonchi. Abdomen is obese. There are multiple healed surgical incisions in his abdomen with a colostomy in the right side. There is some difficulties with adhesion from the colostomy as he has some macerated skin in the right abdominal fold area. He has some mild tenderness to palpation. Lower Extremities: There is no lower extremity edema noted. He has some chronic wasting changes noted in his lower extremities. There are heel ulcers noted bilaterally and on the right there is some black necrotic tissue in his heel ulcer. Skin in the inguinal area and abdominal folds, he has macerated skin with erythema. He also has swelling around his genital regions and maceration there. Posteriorly he has a large sacral decubitus ulcer with areas of necrosis and skin breakdown and bleeding. LABORATORY DATA: WBC 13.6, hemoglobin 9.9, platelets 404. Chemistry: Sodium 140, potassium 3.5, chloride 114, bicarb 16, BUN 34, creatinine 1.36, glucose 148, anion gap 10, corrected for albumin is 15.8, lactic acid increasing to 2.2, magnesium was 1.8. ASSESSMENT/PLAN: Mr. Bills is a 48-year-old male with a history of spina bifida, paraplegia, previous abdominal surgeries with a colostomy, history of uncontrolled insulin dependent diabetes, hyperlipidemia, morbid obesity, obstructive sleep apnea (MUNIRA) on C-PAP, history of chronic sacral wounds, history of urinary retention, history of methicillin-resistant Staphylococcus aureus (MRSA), prior deep vein thrombosis (DVT) and pulmonary embolism (PE) on anticoagulation who presented with dehydration. The patient was found to be in septic shock, likely secondary to his infected decubitus ulcers. His CT of the abdomen and pelvis also suggested possible osteomyelitis in his right femur and hip as well as possible pyelonephritis or perirenal abscess. He was started on Levophed for vasopressor support and brought to the intensive care unit (ICU) for further management. 1. Septic shock secondary to decubitus ulcers as well as possible osteomyelitis and pyelonephritis/urinary tract infection (UTI). - Appreciate surgery recommendations about debridement and wound care. Wound care consult was placed, however, the wound care nurse is not available on the weekends and the wound care physician is not available in hospital. After discussion with surgery, there was a recommendation that the patient be transferred to a center with a wound care physician as well as with hyperbaric oxygen chamber as he will need aggressive wound care as well as likely multiple debridements surgeries and likely hyperbaric oxygen. Will discuss transfer to [facility] for wound care management and hyperbaric oxygen chamber. - Continue with vancomycin, Zosyn and clindamycin for broad spectrum antibiotics and follow up the results of his blood cultures and wound care cultures. - Continue with wound care dressing changes and lidocaine topically p.r.n. for pain. - Continue with morphine p.r.n. for pain control. - Continue with Levophed, will titrate to maintain a MAP above 65. - The patient's lactic acid has increased slightly today. He has had very good urine output, therefore, would give an additional 500 mL normal saline bolus and continue to trend his lactic acid. - His repeat cardiac enzymes have been negative. Will follow up the results of his echo. - Continue holding his antihypertensive medications in the setting of his shock. - The patient's right internal jugular (IJ) triple lumen is currently day two. 2. Diabetic ketoacidosis likely secondary to septic shock. The patient's anion gap has improved. He is still acidotic based on his chemistry, likely with a non anion gap hyperchloremic acidosis contributing at this point. - Will discontinue (DC) his D5 half normal saline and start him on D5W with 20 mEq of KCl at 100/mL/hr. - Continue with the insulin drip for diabetic ketoacidosis (DKA) protocol and followup his repeat chemistry. If his anion gap is still closed, then will transition him to subcutaneous insulin and a diet. - Continue to monitor his electrolytes. Will supplement magnesium 1 gram again today and continue to followup his electrolytes and correct as needed. - Continue n.p.o. while on insulin drip. 3. Acute kidney injury in the setting of hypovolemia from his DKA. - His renal function is improving. Will continue to monitor. - Continue Cornejo and monitoring his ins and outs. - The patient's pseudohyponatremia had improved with correction of his hyperglycemia. DVT prophylaxis, on anticoagulation with Eliquis. GI prophylaxis, on pantoprazole. Full code. Total critical care time spent, not including procedures, approximately 45 minutes. MTDD
--- NOTE | 2018-10-09 12:39 | PHACANCOPD ---
PHARMACY VANCOMYCIN DOSING Pt Demographics Demographics Patient Age:48 , Weight:96.800 , Gender: male Adjusted Body Weight Date: 10/09/18, Adjusted Body Weight: [72.86] Kg Events Past 24 Hours Events Past 24 Hours: YES: Change in CrCl Vancomycin Vancomycin indication: SKIN SOFT TISSUE Vancomycin Target Ranges: 15-20 mcg/ml Vancomycin Load Y/N: Yes Load Dose Date Time Vancomycin Load Dose: Date: Time: Vancomycin Dose Date: 10/09/18. Current Vancomycin Dose: [1G IV Q12H] Intermittent Dosing?: No Labs Labs Item Value Date Time White Blood Count 12.2 10^3/uL H 10/08/18 1353 White Blood Count 13.6 10^3/uL H 10/09/18 0614 Creatinine 1.36 MG/DL H 10/09/18 0614 Creatinine 1.22 MG/DL 10/09/18 1027 Creatinine 1.83 MG/DL H 10/08/182011 Creatinine 1.49 MG/DL H 10/09/18 0119 Creatinine 2.44 MG/DL H 10/08/18 1353 C-Reactive Protein, Quantitative 25.00 MG/DL H 10/08/18 1353 Micro Microbiology 10/08/18 Blood Culture, Received Pending 10/08/18 Blood Culture, Received Pending 10/08/18 Urine Culture, Received Pending 10/08/18 Wound Culture, Received Pending 10/08/18 Wound Culture, Received Pending Creatinine Clearance Date:10/09/18. Creatinine Clearance: [76ML/MIN CALCULATED]. Pending Labs VANCOMYCIN TROUGH 10/10 @12:00 Assessment and Plan Maintaining Current Dose?: No Reason for dose change: Change in serum Cr Pharmacist Note Pharmacist Note Date: 10/09/18. Pharmacist note: Pt is a 48 year old male being treated for skin/soft tissue, septic shock goal trough 15-20mcg/ml. The pts serum creatinine has improved over the night to 1.22mg/dl. Dosing will be changed to 1g vancomycin IV every 12 hours starting 10/09/18 @13:00. A trough is scheduled 10/10 @12:00. We will continue to monitor and adjust the dose as needed. CLAIRE WALTER PHARMACY Oct 09, 2018 12:39
[2018-10-09] MEDS ORDERED: CEPACOL LOZENGE PO PRN (13:45)
--- NOTE | 2018-10-09 14:27 | ECHO ---
DATE OF PROCEDURE: 10/09/2018 REFERRING PHYSICIAN: Dr. Shanice Farmer INDICATION: Chest pain. HEIGHT: 160 cm. WEIGHT: 97 kg. DIMENSIONS: IVS: 1.0 LV: 5.4 LVPW: 1.0 LA: 3.2 Aorta: 3.2 RV: 2.8 IVC: 1.5 Mitral E wave velocity: 60 A wave: 77 E prime septal: 6.0 E prime lateral: 6.5 FINDINGS: The study is of fair technical quality with difficult visualization. The patient is in sinus rhythm. Left ventricle is of normal size. There is extensive wall motion abnormality involving distal inferior wall, distal lateral wall, distal anterior wall, mid and distal septal wall and the whole apex. These segments appear akinetic based on limited views. I cannot rule out presence of adjacent thrombus. In one view, it looks rather suspicious but by no means diagnostic. Remaining left ventricular segments have normal contractility. Overall estimated left ventricular ejection fraction (LVEF) is around 35-40%. The right ventricle appears normal. Both atria appear grossly normal. Aortic, mitral and tricuspid valves appear grossly normal, even though tricuspid valve was poorly seen. Pulmonic valve was not visualized. No pericardial effusion is noted. Inferior vena cava is of normal size. Aortic root and aortic arch appear normal. Abdominal aorta was not well seen. Doppler interrogation of aortic valve reveals no stenosis or insufficiency. There is also no mitral or tricuspid insufficiency. Mitral inflow pattern and tissue Doppler imaging of mitral annulus reveal grade 1 diastolic dysfunction. CONCLUSIONS: 1. Study is of fair technical quality. 2. Normal LV size with extensive wall motion abnormality as described above and possible adjacent thrombus. Grade 1 diastolic dysfunction. 3. No significant valvular disease. 4. Likely normal central venous pressure. 5. Unable to estimate pulmonary artery pressure under COMMENT: Subacute bacterial endocarditis (SBE) prophylaxis is not recommended. 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 Takotsubo cardiomyopathy is in differential diagnosis. MTDD
[2018-10-09] MEDS ORDERED: VANCOMYCIN HCL 1,000 MG, VIAL MATE ADAPTER 1 EACH in D5W 250 ML IV SCH ×2 (15:00→21:00)
[2018-10-09 15:13] LABS: BLOOD UREA NITROGEN 30 MG/DL (7-18); CARBON DIOXIDE LEVEL 14 MEQ/L (21-32); CHLORIDE LEVEL 112 MEQ/L (98-107); CREATININE FOR GFR 1.29 MG/DL (0.70-1.30); GLOMERULAR FILTRATION RATE > 60.0 (>60); GLUCOSE, FASTING 240 MG/DL (70-100); MAGNESIUM LEVEL 2.2 MG/DL (1.8-2.4); POTASSIUM SERUM 3.5 MEQ/L (3.5-5.1); SODIUM LEVEL 136 MEQ/L (136-145)
--- NOTE | 2018-10-09 15:53 | IPNPDOC ---
Subjective Date Seen The patient was seen on 10/09/18. Subjective Chief Complaint/HPI Follow-up septic shock from infected decubitus ulcer/UTI Events since last encounter Patient seen and examined at bedside. Patient denies any complaints. Denies fevers, chills, chest pain, difficulty breathing, nausea, vomiting, diarrhea. Spoke with surgery and critical care and we believe transfer is the most appropriate option. Given lack of advanced wound care services. I spoke with [facility], [facility] and [facility] and we are currently awaiting a bed. Objective Physical Examination General Exam: Positive: Alert, Cooperative, Mild Distress Chest Exam: Positive: Clear to auscultation, Normal air movement Heart Exam: Positive: Rate Normal, Normal S1, Normal S2 Abdomen Exam: Positive: Normal bowel sounds, Soft; Negative: Tenderness Extremity Exam: Positive: Edema (1+ LE edema b/l ), Normal pulses Skin Exam: Positive: Other skin issue (large decub ulcer with necrotic tissue and malodorous ) Neuro Exam: Positive: Normal Speech Psych Exam: Positive: Mental status NL, Mood NL, Oriented x 3 Assessment /Plan Assessment 48y/o m here with infected decub ulcer and UTI Plan/VTE VTE Prophylaxis Ordered?: Yes Plan #Septic shock -Trying to initiate transfer for pt when bed available at [facility] or [facility] -appreciate critical care consult -likely 2/2 infected ulcers and UTI -c/w vanc and zosyn and clinda -currently on levophed - titrate to MAP of 65 -c/w ivf -wound debridement - appreciate surgery consult will look to transfer pt for enhanced wound care -case mgt consulted - lives with , but said he takes care of himself mostly -f/u wound cx, blood cx and urine cx #Hyperglycemia -AGAP now resolved -will look to transition to diet once GAP consistently closed -will transition to Sub Q insulin once AGAP consistently closed bmp q6h #Darrius - RESOLVED -trend BMP for Cr #Hyponatremia -RESOLVED -Trend BMP for Na #Hx of DVT on eliquis Disposition Likely transfer out when bed becomes available VS, I&O, 24H, Fishbone Vital Signs/I&O Vital Signs Date Time Temp Pulse Resp B/P (MAP) Pulse Ox O2 Delivery O2 Flow Rate FiO2 10/09/18 12:16 18 10/09/18 12:00 97.9 88 85/59 (68) 97 10/08/18 17:40 Room Air I&O- Last 24 Hours up to 6 AM 10/09/18 06:00 Intake Total 5457 ml Output Total 3575 ml Balance 1882 ml Laboratory Data 24H LABS Laboratory Tests 2 10/08/18 16:18: Bedside Glucose (Misc Panel) 447H 10/08/18 18:04: B-Hydroxybutyrate 21.65H 10/08/18 18:46: Bedside Glucose (Misc Panel) 570*H 10/08/18 19:21: Bedside Glucose (Misc Panel) 572*H 10/08/18 20:12: Anion Gap 15, Glomerular Filtration Rate 42.3L, Blood Urea Nitrogen 43H, Creatinine 1.83H, Sodium Level 130#L, Potassium Level 3.1L, Chloride Level 100, Carbon Dioxide Level 15L, Calcium Level 6.7L, Magnesium Level 1.4L 10/09/18 01:19: Anion Gap 11, Glomerular Filtration Rate 53.6L, Blood Urea Nitrogen 40H, Cr eatinine 1.49H, Sodium Level 135L, Potassium Level 3.7, Chloride Level 108H, Carbon Dioxide Level 16L, Calcium Level 6.8L, Magnesium Level 2.1, Phosphorus Level 3.0, Troponin I < 0.02 10/09/18 01:20: Blood Gas Bicarbonate Standard 15.2, Venous Blood pH 7.278L, Venous Blood Parti al Pressure CO2 30.6L, Venous Blood Partial Pressure O2 90.0H, Venous Blood Total Carbon Dioxide 14.9L, Venous Blood HCO3 14.0L, Venous Blood Oxygen Saturation 95.5H, Venous Blood Base Excess -11.6L, Lactic Acid Level 0.9 10/09/18 03:08: Bedside Glucose (Misc Panel) 454H 10/09/18 04:13: Bedside Glucose (Misc Panel) 332H 10/09/18 05:23: Bedside Glucose (Misc Panel) 237H 10/09/18 06:14: Nucleated Red Blood Cells % (auto) 0.0, Anion Gap 10, Glomerular Filtration Rate 59.5L, Lactic Acid Level 2.2*H, Blood Urea Nitrogen 34H, Creatinine 1.36H, Sodium Level 140, Potassium Level 3.5, Chloride Level 114H, Carbon Dioxide Level 16L, Calcium Level 7.4L, Magnesium Level 1.8, Procalcitonin 4.44 10/09/18 06:18: Bedside Glucose (Misc Panel) 172H 10/09/18 06:58: Bedside Glucose (Misc Panel) 142H 10/09/18 08:24: Bedside Glucose (Misc Panel) 186H 10/09/18 09:03: Bedside Glucose (Misc Panel) 200H 10/09/18 10:05: Bedside Glucose (Misc Panel) 161H 10/09/18 10:27: Anion Gap 7L, Glomerular Filtration Rate > 60.0, Lactic Acid Followup at 4 Hours 2.3*H, Blood Urea Nitrogen 32H, Creatinine 1.22, Sodium Level 140, Potassium Level 3.2L, Chloride Level 117H, Carbon Dioxide Level 16L, Calcium Level 6.8L, Magnesium Level 1.6L 10/09/18 11:14: Bedside Glucose (Misc Panel) 140H 10/09/18 12:10: Bedside Glucose (Misc Panel) 152H 10/09/18 13:10: Bedside Glucose (Misc Panel) 154H 10/09/18 14:22: Bedside Glucose (Misc Panel) 230H 10/09/18 14:25: Anion Gap 10, Glomerular Filtration Rate > 60.0, Blood Urea Nitrogen 30H, Creatinine 1.29, Sodium Level 136, Potassium Level 3.5, Chloride Level 112H, Carbon Dioxide Level 14L, Calcium Level 7.0L, Magnesium Level 2.2 CBC/BMP Laboratory Tests 10/08/18 20:12 Calcium Level 6.7 L 10/09/18 01:19 Calcium Level 6.8 L 10/09/18 06:14 Calcium Level 7.4 L, Red Blood Count 4.33, Mean Corpuscular Volume 73.4 L, Mean Corpuscular Hemoglobin 22.9 L, Mean Corpuscular Hemoglobin Concent 31.1 L, Red Cell Distribution Width 16.3 H 10/09/18 10:27 Calcium Level 6.8 L 10/09/18 14:25 Calcium Level 7.0 L Microbiology Microbiology 10/08/18 Blood Culture - Preliminary, Resulted No growth after 24 hours . All specim... 10/08/18 Blood Culture - Preliminary, Resulted No growth after 24 hours . All specim... 10/08/18 Urine Culture, Received Pending 10/08/18 Wound Culture, Received Pending 10/08/18 Wound Culture, Received Pending VANESSA ROBBINS MD Oct 09, 2018 15:53
[2018-10-09] MEDS: VANCOMYCIN HCL 1,000 MG, VIAL MATE ADAPTER 1 EACH in NS 250 ML IV SCH (15:58)
[2018-10-09] MEDS ORDERED: MORPHINE 4 MG/ML 1ML VIAL/SYRINGE (J2270) IV ONE (18:00)
[2018-10-09 18:26] LABS: VENOUS BASE EXCESS -13.6 (-2.0-2.0); VENOUS HCO3 12.6 MEQ/L (23.0-27.0); VENOUS PARTIAL PRESSURE CO2 30.4 mmHg (38.0-50.0); VENOUS PARTIAL PRESSURE O2 84.2 mmHg (30.0-50.0); VENOUS PH 7.235 UNITS (7.330-7.430); VENOUS STANDARD HCO3 13.7 MEQ/L; VENOUS TOTAL CO2 13.5 MEQ/L (24.0-28.0)
[2018-10-09] MEDS ORDERED: SODIUM CHLORIDE 0.9% INJ 10 ML SYR IV PRN (20:15)
[2018-10-09] MEDS: SODIUM CHLORIDE 0.9% INJ 10 ML SYR IV SCH (20:41)
[2018-10-09] MEDS ORDERED: VANCOMYCIN HCL 1,000 MG, VIAL MATE ADAPTER 1 EACH in NS 250 ML IV SCH (21:00)
[2018-10-10] VITALS (13 sets, daily range): BP systolic 86–107; BP diastolic 47–64
[2018-10-10] MEDS: VANCOMYCIN HCL 1,000 MG, VIAL MATE ADAPTER 1 EACH in NS 250 ML IV SCH (01:25)
[2018-10-10] MEDS: PIPERACILLIN/TAZOBACTAM SOD 3.375 GM in D5W MINI-BAG PLUS 50 ML IV SCH ×2 (04:25→12:01)
[2018-10-10] MEDS: HumaLOG INSULIN (NovoLOG) PER UNIT SC SCH ×3 (04:26→12:22)
[2018-10-10] MEDS: MORPHINE 4 MG/ML 1ML VIAL/SYRINGE (J2270) IV PRN ×2 (04:27→12:22)
[2018-10-10] MEDS: SODIUM CHLORIDE 0.9% INJ 10 ML SYR IV SCH (06:01)
[2018-10-10 06:08] LABS: HEMATOCRIT 27.6 % (42.0-52.0); HEMOGLOBIN 8.5 g/dl (13.5-17.5); MEAN CORPUSCULAR HEMOGLOBIN 22.5 pg (27.0-33.0); MEAN CORPUSCULAR HGB CONC 30.8 g/dl (32.0-36.5); PLATELET COUNT, AUTOMATED 319 10^3/uL (150-450); RED BLOOD COUNT 3.78 10^6/uL (4.30-6.10); WHITE BLOOD COUNT 11.1 10^3/uL (4.0-10.0)
[2018-10-10 06:19] LABS: BLOOD UREA NITROGEN 27 MG/DL (7-18); CALCIUM LEVEL 6.8 MG/DL (8.5-10.1); CARBON DIOXIDE LEVEL 14 MEQ/L (21-32); CHLORIDE LEVEL 110 MEQ/L (98-107); CREATININE FOR GFR 1.15 MG/DL (0.70-1.30); GLOMERULAR FILTRATION RATE > 60.0 (>60); GLUCOSE, FASTING 177 MG/DL (70-100); POTASSIUM SERUM 3.3 MEQ/L (3.5-5.1); SODIUM LEVEL 135 MEQ/L (136-145)
[2018-10-10] MEDS ORDERED: POTASSIUM CHLORIDE 10 MEQ SR TABLET PO ONE ×2 (06:30→10:15)
[2018-10-10 06:38] LABS: MAGNESIUM LEVEL 1.6 MG/DL (1.8-2.4)
[2018-10-10] MEDS: NS IV SCH ×2 (07:36→07:58)
[2018-10-10] MEDS: NOREPINEPHRINE BITARTRATE IV SCH ×2 (07:36→07:58)
[2018-10-10] MEDS: DOCUSATE SODIUM 100 MG CAP PO SCH (07:52)
[2018-10-10] MEDS: MULTIVITAMINS/MINERALS THERAP 1 TAB PO SCH (07:53)
[2018-10-10] MEDS: CLINDAMYCIN 900 MG in NS 100 ML IV SCH (07:53)
[2018-10-10] MEDS: APIXABAN 5 MG TAB (ELIQUIS) PO SCH (07:53)
[2018-10-10] MEDS: PANTOPRAZOLE 40MG INJ (PROTONIX) (C9113) IV SCH (07:54)
[2018-10-10] MEDS: NYSTATIN 100,000 UNITS/GM TOPICAL PWD 15 GM TOP SCH (07:54)
[2018-10-10] MEDS ORDERED: MAG SULF 1GM/100ML (MAG RUN) 1 GM in APPROPRIATE DILUENT 1 EA IV ONE (10:15)
--- NOTE | 2018-10-10 11:39 | DS.PDOC ---
Discharge Summary General Date of Admission Oct 08, 2018 at 16:08 Date of Discharge 10/10/18 Attending Physician: VANESSA ROBBINS MD Specialist/Consultants Involve: A Specialist/Consultants Involve surgery and pulm/crit care Discharge Summary PROCEDURES PERFORMED DURING STAY: None ADMITTING DIAGNOSES: 1. Septic shock due to UTI/infected decub ulcer 2. UTI 3. infected sacral decub 4. HISTORY OF CAD 5. MORBID OBESITY 6. DEPRESSION 7. DYLIPIDEMIA 8. DM2 WITH INSULIN 9. MUNIRA ON CPAP DISCHARGE DIAGNOSES: 1. Septic shock due to UTI/infected decub ulcer 2. Klebsiella UTI 3. infected sacral decub 4. HISTORY OF CAD 5. MORBID OBESITY 6. DEPRESSION 7. DYLIPIDEMIA 8. DM2 WITH INSULIN 9. MUNIRA ON CPAP COMPLICATIONS/CHIEF COMPLAINT: Arf;Colostomy Care;Decubitus Ulcer;Septic Shock. HISTORY OF PRESENT ILLNESS: As per admission H&P: "This is a 48 yo male with multiple pmhx who came to the ED for feeling dehydration - dry mouth and throat. Patient has a large decubitus ulcer that is malodorous with necrotic tissue and possibly. In ed after receiving IVF, patient's BP was still low, so he was started on levophed. Patient denied fever, chills, chest pain, sob, nausea, vomiting or diarrhea." HOSPITAL COURSE: Pt started on broad spectrum abx (Vanc, zosyn and clinda) and maintained on levophed as pt requiring support to maintain MAP over 65. Surgery and pulm/crit care consulted. Pt also with DKA likely from sepsis started on insulin drip. After discussion it was decided that pt would be better served at an institution with advanced wound care which is not available at [facility]. Advanced wound care includes daily wound care nurse and wound care physician as well as advanced therapies including hyperbaric chamber. Concern that given extend of required debridement pt would not heal well without advanced wound care servi tita. Cultures came back as Klebsiella in urine , foot wound and buttock wound. For the rest of micro please see below. Pt in agreement with transfer. Pt seen and examined on day of discharge and only complaining of feeling tired. Pt denies other symptoms of fever, chills, CP, SOB, N/V/D. C/o some buttock pain but controlled with current pain meds. Given microbio speciation plan to de- escalate antibiotics. Pt will need surgical consult based on CT findings as well as extensive necrotic areas on buttocks. Please also note echo findings below. DISCHARGE MEDICATIONS: Please see below. ALLERGIES: Please see below. PHYSICAL EXAMINATION ON DISCHARGE: VITAL SIGNS: Please see below. GENERAL: Laying in bed in NAD CARDIOVASCULAR EXAMINATION: RRR, nl s1/2 no mrg appreciated RESPIRATORY EXAMINATION: CTA b/l no w/r/r ABDOMINAL EXAMINATION: soft, NT, ND EXTREMITIES: large denuded area on buttocks, with deep wound ?baseball sized that tracks into glutteal cleft. necrotic tissue on multiple parts of buttocks SKIN: see above, eschar on RLE heel NEUROLOGICAL EXAMINATION: CN II-XII intact PSYCHIATRIC EXAMINATION: normal MS, A&Ox3 LABORATORY DATA: Please see below. IMAGING: CT ab/pelvis: 1. There are multiple abnormalities. There is evidence to suggest a decubitus ulcer in the right posterior pelvic soft tissues with extension into the pelvic floor perineal region with abnormal air densities and soft tissue density as described above. Surgical consultation is suggested. 2. There is extreme muscular wasting. 3. There is adenopathy as described above. 4. There is enlargement of the right kidney with suspected tiny fluid collections within and surrounding Gerota's fascia. Pyelonephritis cannot be ruled out and should be clinically evaluated for. Perirenal abscess cannot be ruled out. 5. A ventral hernia as described above. 6. Right-sided colostomy. 7. There is abnormal thickening of the urinary bladder wall which needs to be clinically evaluated for. Cystitis cannot be ruled out. 8. Splenomegaly. 9. Destructive process involving the proximal right femur and likely portions of the right acetabulum as well representing a change from the latest prior. Osteomyelitis cannot be ruled out. Echo: 1. Study is of fair technical quality. 2. Normal LV size with extensive wall motion abnormality as described above and possible adjacent thrombus. Grade 1 diastolic dysfunction. 3. No significant valvular disease. 4. Likely normal central venous pressure. 5. Unable to estimate pulmonary artery pressure under COMMENT: Subacute bacterial endocarditis (SBE) prophylaxis is not recommended. 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 Takotsubo cardiomyopathy is in differential diagnosis ACTIVITY: Bed rest. DIET: cardiac diabetic diet DISCHARGE PLAN: Transfer to [facility] DISPOSITION: Transfer ITEMS TO FOLLOW UP: Pt will need surgical consult Please note echo findings above as well, would recommend cardiology consult DISCHARGE CONDITION: Stable on pressors TIME SPENT ON DISCHARGE: 45 minutes. Vital Signs/I&Os Vital Signs Date Time Temp Pulse Resp B/P (MAP) Pulse Ox O2 Delivery O2 Flow Rate FiO2 10/10/18 10:00 92 94/50 (65) 99 10/10/18 08:00 98.3 18 10/08/18 17:40 Room Air I&O- Last 24 Hours up to 6 AM 10/10/18 06:00 Intake Total 4966.4 ml Output Total 4940 ml Balance 26.4 ml Laboratory Data Labs 24H Laboratory Tests 2 10/09/18 11:14: Bedside Glucose (Misc Panel) 140H 10/09/18 12:10: Bedside Glucose (Misc Panel) 152H 10/09/18 13:10: Bedside Glucose (Misc Panel) 154H 10/09/18 14:22: Bedside Glucose (Misc Panel) 230H 10/09/18 14:25: Anion Gap 10, Glomerular Filtration Rate > 60.0, Blood Urea Nitrogen 30H, Creatinine 1.29, Sodium Level 136, Potassium Level 3.5, Chloride Level 112H, Carbon Dioxide Level 14L, Calcium Level 7.0L, Magnesium Level 2.2 10/09/18 15:57: Bedside Glucose (Misc Panel) 241H 10/09/18 18:15: Blood Gas Bicarbonate Standard 13.7, Venous Blood pH 7.235L, Venous Blood Partial Pressure CO2 30.4L, Venous Blood Partial Pressure O2 84.2H, Venous Blood Total Carbon Dioxide 13.5L, Venous Blood HCO3 12.6L, Venous Blood Oxygen Saturation 95.0H, Venous Blood Base Excess -13.6L 10/09/18 19:35: Bedside Glucose (Misc Panel) 325H 10/09/18 23:23: Bedside Glucose (Misc Panel) 280H 10/10/18 04:25: Bedside Glucose (Misc Panel) 190H 10/10/18 05:40: Nucleated Red Blood Cells % (auto) 0.0, Anion Gap 11, Glomerular Filtration Rate > 60.0, Lactic Acid Level 1.0, Blood Urea Nitrogen 27H, Creatinine 1.15, Sodium Level 135L, Potassium Level 3.3L, Chloride Level 110H, Carbon Dioxide Level 14L, Calcium Level 6.8L, Magnesium Level 1.6L CBC/BMP Laboratory Tests 10/09/18 14:25 Calcium Level 7.0 L 10/10/18 05:40 Calcium Level 6.8 L, Red Blood Count 3.78 L, Mean Corpuscular Volume 73.0 L, Mean Corpuscular Hemoglobin 22.5 L, Mean Corpuscular Hemoglobin Concent 30.8 L, Red Cell Distribution Width 16.5 H FSBS Laboratory Tests Test 10/09/18 11:14 10/09/18 12:10 10/09/18 13:10 10/09/18 14:22 Range/Units Bedside Glucose (Misc Panel) 140 152 154 230 70-105 MG/DL Test 10/09/18 15:57 10/09/18 19:35 10/09/18 23:23 10/10/18 04:25 Range/Units Bedside Glucose (Misc Panel) 241 325 280 190 70-105 MG/DL Microbiology Microbiology 10/08/18 Blood Culture - Preliminary, Resulted No growth after 24 hours . All specim... 10/08/18 Blood Culture - Preliminary, Resulted No growth after 24 hours . All specim... 10/08/18 Urine Culture - Preliminary, Resulted Klebsiella Pneumoniae 10/08/18 Wound Culture - Preliminary, Resulted Klebsiella Pneumoniae Strep Agalactiae Group B Corynebacterium Species Staphylococcus Aureus Staphylococcus Sp Coag Neg 10/08/18 Wound Culture - Preliminary, Resulted Klebsiella Pneumoniae Strep Agalactiae Group B Yeast Like Organism Discharge Medications Scheduled Apixaban (Eliquis) 5 Mg Tablet, 5 MG PO BID, (Reported) Aspirin (Aspirin) 81 Mg Tab.chew, 81 MG PO DAILY, (Reported) Carvedilol (Carvedilol) 6.25 Mg Tab, 6.25 MG PO BID, (Reported) Insulin Glargine,Hum.rec.anlog (Basaglar Kwikpen U-100) 100 Unit/Ml Inj, 20 UNIT SC DAILY, (Reported) Insulin Human Lispro (Humalog) 1 Units/0.01 Ml Inj, 30 UNITS SC AC, (Reported) Lisinopril (Lisinopril) 5 Mg Tablet, 5 MG PO DAILY, (Reported) Magnesium l-Lactate (Mag-Tab Sr) 84 Mg Tab, 84 MG PO TID, (Reported) Multivitamins (Thera M Plus Tablet) 1 Tab Tab, 1 TAB PO DAILY, (Reported) Pantoprazole Sodium (Pantoprazole Sodium) 40 Mg Tab, 40 MG PO DAILY, (Reported) Rosuvastatin Calcium (Crestor) 20 Mg Tab, 20 MG PO QHS, (Reported) Sertraline HCl (Sertraline HCl) 100 Mg Tab, 100 MG PO DAILY, (Reported) Scheduled PRN Acetaminophen (Acetaminophen) 325 Mg Tablet, 650 MG PO Q4H PRN for PAIN, (Reported) Albuterol Sulfate (Ventolin Hfa) 108 Mcg/Act Aer, 2 PUFFS INH Q4H PRN for SHORTNESS OF BREATH, (Reported) Nitroglycerin (Nitrostat) 0.4 Mg Subl, 0.4 MG SL NITRO PRN for CHEST PAIN, (Reported) Allergies Coded Allergies: Sulfa (Sulfonamide Antibiotics) (Verified Adverse Reaction, Unknown, itching, 07/20/18) sulfamethoxazole (Verified Adverse Reaction, Unknown, itching, 07/20/18) trimethoprim (Verified Adverse Reaction, Unknown, itching, 07/20/18) VANESSA ROBBINS MD Oct 10, 2018 11:39
--- NOTE | 2018-10-11 07:52 | CCN ---
DATE: 10/10/2018 The patient was seen and examined this morning on bedside rounds. The patient was still requiring Levophed for blood pressure support anywhere from 3 mcg per minute, sometimes down to 1 or 2 mcg per minute. He is unable to be entirely weaned off the Levophed. He has not had any fevers overnight. He denies any complains currently of chest pain, shortness of breath and wheezing or coughing. He has no abdominal pain. No nausea or vomiting. He does continue have pain secondary to his significant decubitus ulcers. PHYSICAL EXAMINATION: Temperature 97.8, pulse 82, respirations 16, blood pressure 92/57, oxygen sat 100% on room air. Input 4.7 liters and output 5.5 liters, negative 872 mL. General: The patient is a morbidly obese male who is lying in bed in no acute distress. He is alert and oriented. He is not using any accessory muscles for respiration. HEENT: Normocephalic, atraumatic. Pupils reactive to light bilaterally. Mucous membranes are moist. Neck is supple. No palpable adenopathy and no jugular venous distention (JVD) noted. Cardiovascular: Regular rate and rhythm. Normal S1, S2, possible faint murmur auscultated. Lungs: Clear to auscultation bilaterally. No wheezing, rales or rhonchi. Abdomen: Obese. There are multiple healed surgical incisions in his abdomen with a colostomy in the right side. There is some mild tenderness to palpation. He does have erythematous and macerated skin in his abdominal folds. EXTREMITIES: There is no lower extremity edema noted. He has chronic muscle wasting noted in his lower extremities. There are heel ulcers noted bilaterally and on the right heel there is black necrotic tissue noted. His skin in the inguinal and abdominal folds is macerated and erythematous. He has swelling around the genital regions and some macerated skin there. Posterior he has a large sacral decubitus ulcer with areas of necrosis and skin breakdown with associated bleeding. LABORATORY DATA: WBC 11.1, hemoglobin 8.5, platelets 319. Chemistry: Sodium is 135, potassium 3.3, chloride 110, bicarbonate 14, BUN 27, creatinine 1.15, glucose is 177, lactic acid 1.0, magnesium was 1.6. MICROBIOLOGY: Urine culture positive for Klebsiella, pansensitive and resistant only to ampicillin. Wound cultures were positive for multiple organisms, mostly Klebsiella and Streptococcus agalactiae. There is also Corynebacterium and some Staphylococcus aureus, which was not given sensitivities. ASSESSMENT/PLAN: Mr. Bills is a 48-year-old male with history of spina bifida with paraplegia, previous multiple abdominal surgeries status post colostomy, and uncontrolled insulin dependent diabetes, hyperlipidemia, morbid obesity, obstructive sleep apnea on C-PAP, history of chronic sacral decubitus wounds and methicillin resistant Staphylococcus aureus (MRSA), prior deep vein thrombosis (DVT) and pulmonary embolus on anticoagulation who presented with dehydration initially. The patient was also found to be in septic shock, likely secondary to his infected decubitus ulcers, although there is also suggestion of possible osteomyelitis in his right femur and hip, as well as possible pyelonephritis and urinary tract infection (UTI). The patient was brought to the intensive care unit (ICU) for vasopressor support and further management. 1. Septic shock secondary to decubitus ulcers, as well as possible osteomyelitis and pyelonephritis / urinary tract infection (UTI). The patient's urine culture was positive for Klebsiella, his wound cultures were positive for multiple organisms, the majority of our Klebsiella pneumoniae and Streptococcus agalactiae. There is also Corynebacterium species and some Staphylococcus aureus, which did not have resistances speciated out. There are also a few yeast like organisms noted in his sacral wounds. Therefore, although he has a history of MRSA, given his wound culture and urine culture results can likely discontinue vancomycin and would discontinue the Zosyn and clindamycin and change him to ceftazidime. Will continue with wound care dressing changes. Appreciate surgery recommendations. The patient was pending a bed at [facility] for transfer for better management of wound care and possible hyperbaric oxygen chamber and debridement surgeries. He has a bed available today and therefore we will set of transfer for the patient likely by air given the long travel and his need for vasopressors with titration. Continue with morphine as needed for pain control. The patient's lactic acidosis has trended down. We will continue to monitor. The patient echo showed ejection fraction of 35-40% with a questionable thrombus and some grade 2 diastolic dysfunction. He is on anticoagulation for his history of DVT and PE, which we will continue at this time. Continue to hold his antihypertensive medications in the setting of his shock. The patient's right IJ was placed on in 10/09/2018. 2. Diabetic ketoacidosis secondary to septic shock. The patient was transitioned to subcutaneous insulin yesterday with Levemir at 15 units. He was also given sliding scale insulin sliding scale insulin with meals. Will likely need adjustment of his Levemir. He is tolerating his diet well currently. The patient's potassium and magnesium were low, we will supplement today and would continue to monitor. 3. Acute kidney injury in the setting of his hypovolemia from DKA. Creatinine is continuing to improve and the patient continues to have good urine output. Continue Cornejo for critical monitoring of his ins and outs. He also has a history of chronic urinary retention. The patient's hyponatremia has improved with correction of his hyperglycemia. Would need to continue monitor to make sure his anion gap does not reopen. 4. Deep vein thrombosis (DVT) prophylaxis on anticoagulation with Eliquis. 5. Gastrointestinal prophylaxis, on pantoprazole. FULL CODE. Total critical care time spent, not including procedures, approximately 40 minutes. DISPOSITION: The patient will be transferred to [facility] for further wound care management.
== END 2018-10-10 13:17 | disposition short-term general hospital (02) | DRG 871 ==
LOC: M ED 11:20 → M ED INP 16:08 → M ICU 18:56
PROVIDERS: ADMIT Internal Medicine; ATTEND Internal Medicine
PROC: 02HV33Z Insertion of Infusion Device into Superior Vena Cava, Percutaneous Approach (ICD-10-PCS; principal; 2018-10-08)
DX: A41.9 Sepsis, unspecified organism (principal); R65.21 Severe sepsis with septic shock; E11.10 Type 2 diabetes mellitus with ketoacidosis without coma; N17.9 Acute kidney failure, unspecified; N39.0 Urinary tract infection, site not specified; E87.0 Hyperosmolality and hypernatremia; L89.150 Pressure ulcer of sacral region, unstageable; Q05.9 Spina bifida, unspecified; E78.5 Hyperlipidemia, unspecified; G47.33 Obstructive sleep apnea (adult) (pediatric); E66.01 Morbid (severe) obesity due to excess calories; I25.10 Atherosclerotic heart disease of native coronary artery without angina pectoris; F32.9 Major depressive disorder, single episode, unspecified; B96.1 Klebsiella pneumoniae [K. pneumoniae] as the cause of diseases classified elsewhere; Z79.82 Long term (current) use of aspirin; Z79.899 Other long term (current) drug therapy; Z79.4 Long term (current) use of insulin; Z88.2 Allergy status to sulfonamides; Z88.8 Allergy status to other drugs, medicaments and biological substances; K21.9 Gastro-esophageal reflux disease without esophagitis; Z93.3 Colostomy status; Z91.19 Patient's noncompliance with other medical treatment and regimen; E87.6 Hypokalemia; I25.2 Old myocardial infarction; R33.9 Retention of urine, unspecified; Z79.01 Long term (current) use of anticoagulants; Z91.018 Allergy to other foods; Z86.718 Personal history of other venous thrombosis and embolism; Z86.711 Personal history of pulmonary embolism; E83.42 Hypomagnesemia

== ENCOUNTER → 2019-08-02 | Outpatient (REF) | payer MEDICARE ==
[~2019-08-02] MED LIST changes: +ACET-908 PO; +ASPI81CH33 PO; +CYCL-707 PO; -CYCL10TA PO; -GLIM4TAB PO; +GLIM4TAB5 PO; +LISI-542 PO; +ONDA-83 PO; -ONDA4TAB5 PO
== END ==
LOC: M LAB REF 12:37
PROVIDERS: ATTEND Surgery
DX: L89.314 Pressure ulcer of right buttock, stage 4 (principal)

== ENCOUNTER → 2019-08-08 | Outpatient (CLI) | payer MEDICARE ==
[2019-08-08 09:29] LABS: BASO % 0.5 % (0.0-1.0); EOS # 0.3 10^3/uL (0.0-0.5); EOS % 3.6 % (0.0-3.0); HEMATOCRIT 39.6 % (42.0-52.0); HEMOGLOBIN 12.1 g/dl (13.5-17.5); LYMPH # 1.6 10^3/uL (1.5-5.0); LYMPH % 20.3 % (24.0-44.0); MEAN CORPUSCULAR HGB CONC 30.6 g/dl (32.0-36.5); MEAN CORPUSCULAR VOLUME 78.4 fl (80.0-96.0); MONO # 0.6 10^3/uL (0.0-0.8); MONO % 7.3 % (0.0-5.0); NEUTROPHILS # 5.3 10^3/uL (1.5-8.5); NEUTROPHILS % 67.9 % (36.0-66.0); PLATELET COUNT, AUTOMATED 274 10^3/uL (150-450); RED BLOOD COUNT 5.05 10^6/uL (4.30-6.10); WHITE BLOOD COUNT 7.8 10^3/uL (4.0-10.0)
[2019-08-08 09:51] LABS: BLOOD UREA NITROGEN 9 MG/DL (7-18); CARBON DIOXIDE LEVEL 26 MEQ/L (21-32); CHLORIDE LEVEL 104 MEQ/L (98-107); CREATININE FOR GFR 0.52 MG/DL (0.70-1.30); GLOMERULAR FILTRATION RATE > 60.0 (>60); GLUCOSE, FASTING 184 MG/DL (70-100); POTASSIUM SERUM 3.4 MEQ/L (3.5-5.1); SODIUM LEVEL 140 MEQ/L (136-145)
[2019-08-08 13:14] LABS: HEMOGLOBIN A1c 11.7 %
== END ==
LOC: M LAB 08:39
PROVIDERS: ATTEND Family Medicine
DX: E11.8 Type 2 diabetes mellitus with unspecified complications (principal); D50.9 Iron deficiency anemia, unspecified

== ENCOUNTER → 2019-08-11 | Outpatient (REF) | payer MEDICARE ==
[2019-08-11 15:35] LABS: APPEARANCE, URINE CLOUDY (CLEAR); BACTERIA, URINE AUTO NEGATIVE (NEGATIVE); BILIRUBIN, URINE AUTO NEGATIVE (NEGATIVE); BLOOD, URINE BLOOD 2+ (NEGATIVE); COLOR, URINE YELLOW (YELLOW); GLUCOSE, URINE (UA) AUTO 3+ mg/dL (NEGATIVE); KETONE, URINE AUTO NEGATIVE (NEGATIVE); LEUKOCYTE ESTERASE, URINE AUTO 3+ (NEGATIVE); MUCUS, URINE SMALL (NEGATIVE); NITRITE, URINE AUTO NEGATIVE (NEGATIVE); PROTEIN, URINE AUTO 1+ mg/dL (NEGATIVE); RBC, URINE AUTO 25 /HPF (0-3); SPECIFIC GRAVITY URINE AUTO 1.013 (1.002-1.035); SQUAMOUS EPITHELIAL CELL UR AU 0 /HPF (0-6); UROBILINOGEN, URINE AUTO 0.2 mg/dL (0.0-2.0); WBC, URINE AUTO TNTC /HPF (0-3)
== END ==
LOC: M LAB REF 12:32
PROVIDERS: ATTEND Family Medicine
DX: R30.0 Dysuria (principal)

== ENCOUNTER → 2019-08-18 | Outpatient (CLI) | payer MEDICARE ==
[~2019-08-18] MED LIST changes: -COUM6TAB PO; +COUM6TAB10 PO; +GASTROGRAFIN SOLUTION 30ML (Q9963) As Ordered ONE; +ISOVUE-370 76% 100ML VIAL As Ordered ONE
--- NOTE | 2019-08-18 23:20 | REP ---
REASON FOR EXAM: Decubitus ulcers. Latest prior for comparison is 10/08/2018. CONTRAST: 100 mL Isovue-370. There is no change in the lung bases. The solid intra-abdominal organs are unchanged. Right-sided colostomy tube, status quo. No change in the bowel loops. No free fluid free air. No change in the appearance of the pancreas, kidneys, or adrenal glands. No change in the abdominal aorta or para-aortic regions. There is no change in the osseous structures. The defect seen in the right gluteal soft tissues with increased soft tissue and air densities on the 10/08/2018 examination has significantly improved. There is only minimal air density seen in that region today, and the degree of fatty infiltration surrounding the region has lessened. IMPRESSION: 1. Improved right buttock decubitus ulcer. 2. There is an air density in what is most likely a folded to the right gluteal cleft. Since the skin margins of this region are smooth, it is likely artifactual but needs to be correlated clinically. 3. Stable chronic changes, as described above. Electronically Signed by Lev Lopez DO 08/19/2019 11:14 A
== END ==
LOC: M RAD 12:38
PROVIDERS: ATTEND Surgery
DX: L89.314 Pressure ulcer of right buttock, stage 4 (principal)
CPT/HCPCS: 74177; Q9963; Q9967

== ENCOUNTER → 2019-12-01 | Outpatient (CLI) | payer MEDICARE, MEDICAID ==
[~2019-12-01] MED LIST changes: +CYSTO-CONRAY II 17.2% 250ML VIAL (Q9958) As Ordered ONE; -GASTROGRAFIN SOLUTION 30ML (Q9963) As Ordered ONE; -ISOVUE-370 76% 100ML VIAL As Ordered ONE; +LIDOCAINE 2% JELLY 30ML As Ordered ONE; +PANT40TA29 PO; -PANT40TA3 PO
--- NOTE | 2019-12-16 07:32 | REP ---
CYSTOGRAM The procedure was performed under the direct supervision of Dr. Hebert. The images were reviewed with Dr. Hebert. DESCRIPTION OF PROCEDURE: The patient was catheterized in the usual sterile fashion with a Cornejo catheter by the department nurse. 250 mL of Cysto-Conray II was instilled into the bladder in a retrograde flow. Images demonstrate dilation of the prostatic urethra. The balloon of the catheter sits in the prostatic urethra. The bladder is normal in position and contour. There are a few bladder diverticula identified. 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 There is no postvoid residual. IMPRESSION: * The prostatic urethra is dilated and the balloon of the catheter sits within it. 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 1.6 minutes of fluoroscopy time was utilized for this procedure. CANDIDO
== END ==
LOC: M RADPRO 12:37
PROVIDERS: ATTEND Surgery
DX: N32.2 Vesical fistula, not elsewhere classified (principal)
CPT/HCPCS: 51610; 74430; Q9958

== ENCOUNTER → 2019-12-12 | Outpatient (CLI) | payer MEDICARE, OTHER ==
[~2019-12-12] MED LIST changes: -CYSTO-CONRAY II 17.2% 250ML VIAL (Q9958) As Ordered ONE; -LIDOCAINE 2% JELLY 30ML As Ordered ONE
[2019-12-12 17:29] LABS: HEMOGLOBIN 12.3 g/dl (13.5-17.5); MEAN CORPUSCULAR HEMOGLOBIN 22.5 pg (27.0-33.0); PLATELET COUNT, AUTOMATED 283 10^3/uL (150-450); RED BLOOD COUNT 5.47 10^6/uL (4.30-6.10); WHITE BLOOD COUNT 10.3 10^3/uL (4.0-10.0)
[2019-12-12 17:53] LABS: BLOOD UREA NITROGEN 11 MG/DL (7-18); CALCIUM LEVEL 9.4 MG/DL (8.5-10.1); CARBON DIOXIDE LEVEL 28 MEQ/L (21-32); CHLORIDE LEVEL 97 MEQ/L (98-107); GLOMERULAR FILTRATION RATE > 60.0 (>60); GLUCOSE, FASTING 289 MG/DL (70-100); MAGNESIUM LEVEL 1.9 MG/DL (1.8-2.4); POTASSIUM SERUM 4.6 MEQ/L (3.5-5.1); SODIUM LEVEL 133 MEQ/L (136-145)
== END ==
LOC: M LAB 16:06
PROVIDERS: ATTEND Physician Assistant
DX: E11.65 Type 2 diabetes mellitus with hyperglycemia (principal); E83.42 Hypomagnesemia

== ENCOUNTER → 2019-12-19 | Outpatient (REF) | payer MEDICARE, OTHER ==
[2019-12-19 15:49] LABS: APPEARANCE, URINE CLOUDY (CLEAR); BACTERIA, URINE AUTO 3+ (NEGATIVE); BILIRUBIN, URINE AUTO NEGATIVE (NEGATIVE); BLOOD, URINE BLOOD 2+ (NEGATIVE); COLOR, URINE YELLOW (YELLOW); GLUCOSE, URINE (UA) AUTO 3+ mg/dL (NEGATIVE); KETONE, URINE AUTO NEGATIVE (NEGATIVE); LEUKOCYTE ESTERASE, URINE AUTO 3+ (NEGATIVE); MUCUS, URINE SMALL (NEGATIVE); NITRITE, URINE AUTO POSITIVE (NEGATIVE); PROTEIN, URINE AUTO 1+ mg/dL (NEGATIVE); RBC, URINE AUTO 50 /HPF (0-3); SPECIFIC GRAVITY URINE AUTO 1.012 (1.002-1.035); SQUAMOUS EPITHELIAL CELL UR AU 2 /HPF (0-6); UROBILINOGEN, URINE AUTO 0.2 mg/dL (0.0-2.0); WBC, URINE AUTO TNTC /HPF (0-3)
== END ==
LOC: M SHH 12:50
PROVIDERS: ATTEND Family Medicine
DX: R30.0 Dysuria (principal)

== ENCOUNTER → 2020-01-12 | Outpatient (CLI) | payer MEDICARE, OTHER, MEDICAID ==
--- NOTE | 2020-01-14 03:28 | ECWPNPC ---
PATIENT NAME: SKYLER ESCALANTE : 1970 GENDER: MALE VISIT DATE: 01/12/2020 DISCHARGE DATE: 01/12/20 1356 VISIT LOCKED DATE TIME: PHYSICIAN: NICOLAS ROBBINS PHYSICIAN PAGER NO: ACTIVE RESOURCE: NICOLAS ROBBINS REASON FOR APPOINTMENT 1. SACRAL PAIN MED MGMT HISTORY OF PRESENT ILLNESS DEPRESSION SCREENING: PHQ-2 (2015 EDITION) LITTLE INTEREST OR PLEASURE IN DOING THINGS?NOT AT ALL FEELING DOWN, DEPRESSED, OR HOPELESS?NOT AT ALL TOTAL SCORE0 50-YEAR-OLD MALE IN FOR INITIAL PAIN CONSULT. PATIENT HAS HAD SACRAL PAIN FOR THE PAST SEVERAL YEARS. HIS SACRAL PAIN IS RELATED TO BEING FLAT ON HIS BACK FOR 4 YEARS RECUPERATING FROM A SURGERY THAT WENT WRONG. PATIENT ADMITS TO BEING ON NORCO IN THE PAST WITH GOOD RELIEF OF PAIN. HE RATES HIS PAIN CURRENTLY AT A 6 OUT OF 10 AND DESCRIBES IT ACHING. GENERAL: -. FALL RISK SCREENING: SCREENING :NO FALLS REPORTED IN THE LAST YEAR NONE PAIN SCREENING: PATIENT HAS A COMPLAINT OF ACUTE OR CHRONIC PAIN :YES LOCATION OF PAIN:LOW BACK INTENSITY OF PAIN (SCALE OF 1 TO 10):6 WHAT DOES YOUR PAIN FEEL LIKE:ACHING DURATION:CONTINOUS PAIN IS INCREASED BY:ACTIVITIES PAIN IS DECREASED BY:OTHERS NOTHING REALLY HELPS WITH THE PAIN NURSING NOTE: -. PAIN CENTER INTAKE QUESTIONS: DO YOU HAVE A HISTORY OF MRSA? :YES 1 YEAR AGO DO YOU TAKE A BLOOD THINNERS? :YES DO YOU HAVE ANY BLEEDING DISORDERS? :NO ANY NEW NUMBNESS OR WEAKNESS IN YOUR LEGS OR ARMS? :NO ANY PACEMAKER,DEFIBRILLATOR, OR DORSAL COLUMN STIMULATOR? :NO DO YOU HAVE ANY RASHES OR OPEN SORES? :YES RIGHT SIDE OF BUTT HAS A OPEN SORE ARE YOU ALLERGIC TO IV DYE? :NO ARE YOU DIABETIC? :YES ANY NEW PROBLEMS WITH YOUR MEDICATIONS? :NO HAVE YOU RECEIVED A VACCINE IN THE PAST 30 DAYS? :NO DO YOU PLAN TO RECEIVE A VACCINE IN THE NEXT 21 DAYS? :NO DO YOU NEED ANY PRESCRIPTION? :NO DO YOU TAKE ANY IMMUNOSUPPRESSIVE MEDICATIONS? :YES ZOLOFT 100 MG IS THERE A CHANCE YOU COULD BE ? :NO ARE YOU BREAST FEEDING? :NO CURRENT MEDICATIONS TAKING NYSTATIN [id number] UNIT/GM CREAM 1 APPLICATION EXTERNALLY TWICE A DAY TO ABDOMINAL RASH TAKING SERTRALINE HCL 100 MG TABLET 1 TABLET ORALLY ONCE A DAY TAKING ELIQUIS 5 MG TABLET 1 TAB ORALLY TWICE DAILY TAKING CARVEDILOL 6.25 MG TABLET 1 TAB ORALLY TWICE DAILY TAKING HUMALOG KWIKPEN 100 UNIT/ML SOLUTION SLIDING SCALE/ SUBCUTANEOUS [id number] 301-350=[id number] [id number]=12UNITS>450=14-UNITS, NOTES: 30 UNITS TAKING UNIFINE PENTIPS 31G X 5 MM MISCELLANEOUS 1 PEN TIP SUBCUTANEOUSLY DAILY WITH AM INSULIN AND 4 TIMES A DAY WITH SLIDING SCALE = 4 TIMES A DAY TAKING EMBRACE BLOOD GLUCOSE TEST - STRIP 1 LANCET IN VITRO FOUR TIMES DAILY TAKING MULTIVITAMIN ADULT - TABLET 1 TAB ORALLY DAILY TAKING OSTOMY DRAINABLE POUCH/FLANGE - MISCELLANEOUS CONVATEC POUCHES AND FLANGES-2 3/4 INCHES DX: Z93.3 DAILY USE TAKING MAGNESIUM LACTATE 84 MG (7MEQ) TABLET EXTENDED RELEASE 3 TABLETS ORALLY FOUR TIMES DAILY TAKING ROSUVASTATIN CALCIUM 20 MG TABLET 1 TABLET ORALLY ONCE A DAY TAKING BASAGLAR KWIKPEN 100 UNIT/ML SOLUTION PEN-INJECTOR DIRECTED SUBCUTANEOUS , NOTES: 20 UNITS TAKING ASPIR-LOW 81 MG TABLET DELAYED RELEASE 1 TABLET ORALLY ONCE A DAY TAKING PANTOPRAZOLE SODIUM 40 MG TABLET DELAYED RELEASE 1 TABLET ORALLY ONCE A DAY TAKING NITROGLYCERIN 0.4 MG TABLET SUBLINGUAL DIRECTED SUBLINGUAL TAKING ACETAMINOPHEN 325 MG CAPSULE 2 CAPSULE NEEDED ORALLY EVERY 4 HRS PRN TAKING ALBUTEROL SULFATE HFA 108 (90 BASE) MCG/ACT AEROSOL SOLUTION 1 PUFF NEEDED INHALATION EVERY 4 HRS TAKING LISINOPRIL 5 MG TABLET 1 TABLET ORALLY ONCE A DAY TAKING MALE EXTERNAL CATHETER MEDIUM - MISCELLANEOUS DIRECTED DIRECTED, CHANGE DAILY, DX CODE N31.9, R32 TAKING METFORMIN HCL 500 MG TABLET 1 TABLET WITH A MEAL ORALLY ONCE A DAY TAKING TRULICITY 0.75 MG/0.5ML SOLUTION PEN-INJECTOR DIRECTED SUBCUTANEOUS TAKING CARVEDILOL 6.25 MG TABLET 1 TABLET WITH FOOD ORALLY TWICE A DAY NOT-TAKING JANUVIA 50 MG TABLET 1 TABLET ORALLY ONCE A DAY NOT-TAKING LEVOFLOXACIN 500 MG TABLET 1 TABLET ORALLY ONCE A DAY NOT-TAKING CEPHALEXIN 500 MG CAPSULE 1 TABLET ORALLY EVERY 6 HOURS NOT-TAKING FERROUS SULFATE 325 MG CAPSULE DIRECTED ORALLY NOT-TAKING VITAMIN C 500 MG TABLET CHEWABLE 1 TABLET ORALLY ONCE A DAY NOT-TAKING BASAGLAR KWIKPEN 100 UNIT/ML SOLUTION PEN-INJECTOR DIRECTED SUBCUTANEOUS 32 UNITS IN AM NOT-TAKING MAY HAVE - - # 18 FR HARP KIT TO SELF CATH/ DX CODE : NEUROGENIC BLADDER: N.31 MONTHLY NOT-TAKING MAY HAVE - - URO-JET TO NUMB PENIS WHEN SELF CATHING DX CODE: NEUROGENIC BLADDER; N31.9 MONTHLY NOT-TAKING BACTROBAN 2 % CREAM 1 APPLICATION TO RIGHT FIRST FINGER TOPICALLY THREE TIMES A DAY NOT-TAKING BENADRYL ALLERGY 25 MG TABLET 1 TABLET ORALLY OTC NOT-TAKING MELATONIN 5 MG TABLET 1 TABLET AT BEDTIME NEEDED WITH FOOD ORALLY ONCE A DAY MEDICATION LIST REVIEWED AND RECONCILED WITH THE PATIENT PAST MEDICAL HISTORY SPINAL BIFIDA-WHEELCHAIR BOUND HISTORY OF CAD MORBID OBESITY GERD DEPRESSION DYLIPIDEMIA DM2 WITH INSULIN MUNIRA ON CPAP - FOLLOWS WITH PULM ASSOC MICROCYTIC ANEMIA CHRONIC BILATERAL SACRAL DECUBITUS AND GROIN WOUNDS/SKIN MACERATION BLEEDING BUTTOCK WOUNDS SECONDARY TO ANTICOAGULATION WHILE ON COUMADIN. URINARY RETENTION WITH CHRONIC 18FR HARP COLOSTOMY HX MRSA INFECTIONS HISTORY OF DVT AND PULMONARY EMBOLISM ALLERGIES BACTRIM: HIVES - SIDE EFFECTS SURGICAL HISTORY FISTULA X 2 2017 COLOSTOMY HERNIA REPAIR CYSTOSCOPY 01/02/2020 FAMILY HISTORY PATIENT WAS ADOPTED AND DOESN'T HAVE ANY INFORMATION ABOUT PARENTS. SOCIAL HISTORY GENERAL: TOBACCO USE ARE YOU A:FORMER SMOKER HOW LONG HAS IT BEEN SINCE YOU LAST SMOKED?5-10 YEARS LATEX QUESTIONNAIRE LATEX ALLERGY : HAVE YOU EVER DEVELOPED ANY TYPE OF REACTION AFTER HANDLING LATEX PRODUCTS SUCH RUBBER GLOVES, CONDOMS, DIAPHRAGMS, BALLOONS, SOCKS, OR UNDERWEAR?NO LATEX ALLERGY : HAVE YOU EVER DEVELOPED ANY TYPE OF REACTION DURING OR AFTER DENTAL APPOINTMENT, VAGINAL/RECTAL EXAMINATION, SURGICAL PROCEDURE, OR ANY OTHER EXPOSURE?NO LATEX RISK : HAVE YOU EVER HAD ANY DIFFICULTY BREATHING OR HIVES AFTER EATING OR HANDLING ANY FRUITS, OR VEGETABLES; SUCH KIWI, BANANAS, STONE FRUITS, OR CHESTNUTSNO LATEX RISK : DO YOU HAVE A PREVIOUS PERSONAL HISTORY OF MORE THAN NINE SURGERIES, SPINA BIFIDA, OR REPEATED CATHERIZATIONS? YES - PLEASE INDICATE : > 9 SURGERIES, SPINE ABIFIDA LATEX RISK : ARE YOU FREQUENTLY EXPOSED TO LATEX PRODUCTS IN YOUR OCCUPATION?NO DATE ASKED : 01/12/2020 BMI CARE GOAL FOLLOW-UP ABOVE NORMAL BMI FOLLOW-UPDIETARY MANAGEMENT EDUCATION, GUIDANCE, AND COUNSELING, DIETARY NEEDS EDUCATION ALCOHOL SCREENING DID YOU HAVE A DRINK CONTAINING ALCOHOL IN THE PAST YEAR?NO POINTS0 INTERPRETATIONNEGATIVE RECREATIONAL DRUG USE DRUG USE?NO CAFFEINE CAFFEINE USE?YES HOW OFTEN AND HOW MUCH? 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 DIET: CARBOHYDRATE CONTROLLED. EXERCISE: NO REGULAR EXERCISE. MARITAL STATUS: . OTHERS AT HOME: SPOUSE. HOUSING: RENTS APARTMENT. ADVANCE DIRECTIVE ADVANCE DIRECTIVE DISCUSSED WITH PATIENT:YES BROTHER MARYCHUY [phone] HOSPITALIZATION/MAJOR DIAGNOSTIC PROCEDURE HEART ATTACK 2014 UTI/SEPSIS 05/2019 REVIEW OF SYSTEMS CONSTITUTIONAL: ANY RECENT FEVER NO . CHILLS NO . WEIGHT CHANGE OF UNKNOWN REASONS NO . MUSCULOSKELETAL: ANY UNUSUAL JOINT PAIN OR SWELLING NOT MENTIONED NO . SYSTEMIC LUPUS NO . ANY NEUROMUSCULAR DISORDER NOT MENTIONED NO . LYME DISEASE NO . GASTROENTEROLOGY: ANY NEW CHANGE IN BOWEL CONTROL? NO . HISTORY OF LIVER DISORDER NOT MENTIONED NO . HISTORY OF UNUSUAL ABDOMINAL PAIN OR CRAMPING NOT MENTIONED NO . NO CONSTIPATION. GENITOURINARY: ANY NEW CHANGE IN BLADDER CONTROL? NO . ANY RENAL/KIDNEY CONDITON NOT MENTIONED NO . NEUROLOGY: HISTORY OF TBI NOT MENTIONED NO . OTHER NEW NUMBNESS OR PAIN PATTERNS NOT MENTIONED NO . NEW ONSET DIZZINESS OR NEUROLOGICAL CHANGES NOT MENTIONED NO . HISTORY OF SEVERE HEADACHES NOT MENTIONED NO . HISTORY OF STROKE OR NEUROLOGICAL DISORDER NOT MENTIONED NO . CARDIOLOGY: HEART SURGERY NO . CONGESTIVE HEART FAILURE/FLUID OVERLOAD NOT MENTIONED NO . HISTORY OF CHEST PAIN,IRREGULAR HEART BEAT NOT MENTIONED NO . RESPIRATORY: SHORTNESS OF BREATH ON EXERTION, WHEEZES, UNUSUAL COUGH NOT MENTIONED NO . ENDOCRINOLOGY: ADRENAL GLAND OR THYROID DISORDERS NOT MENTIONED NO . UNUSUAL URINATION, DIZZINESS OR LETHARGY NOT MENTIONED NO . VITAL SIGNS WT 240 LBS, HT 63 IN, BMI 42.51 INDEX, BP 125/75 MM HG, HR 82 /MIN, RR 18 /MIN, TEMP 98.1 F, OXYGEN SAT % 99%, SAFE IN ENV? (Y/N) YES, NA INITIALS MS 13:10, REVIEWED BY: SEBASTIAN. EXAMINATION GENERAL EXAMINATION: GENERALNO ACUTE DISTRESS, WELL NOURISHED AND HYDRATED. PSYCHAPPROPRIATE MOOD AND AFFECT . LUNGS:CLEAR TO AUSCULTATION BILATERALLY, NO WHEEZES, RHONCHI, RALES. HEART:NO MURMURS, REGULAR RATE AND RHYTHM. ASSESSMENTS SACROCOCCYGEAL DISORDERS, NOT ELSEWHERE CLASSIFIED - M53.3 (PRIMARY) TREATMENT SACROCOCCYGEAL DISORDERS, NOT ELSEWHERE CLASSIFIED NOTES: 50-YEAR-OLD MALE IN FOR INITIAL PAIN CONSULT. GIVEN PRESENTING SYMPTOMS RECOMMEND NORCO 5/325 MG TWICE A DAY WITH FOLLOW-UP IN ONE MONTH TO DETERMINE EFFICACY OF TREATMENT. PATIENT HAS EXPRESSED UNDERSTANDING OF AND WAS IN AGREEMENT WITH TREATMENT PLAN. GIVEN TIME TO ASK QUESTIONS AND EXPRESS CONCERNS. , ISTOP REGISTRY REVIEWED AND DEMONSTRATES COMPLLIANCE. (REF # [id number] ) BRINGS IN MEDICATIONS WHICH IS APPROPRIATE FOR WHAT WAS DISPENSED. RECENT URINE TOXICOLOGY REVIEWED. NO UNAUTHORIZED MEDICATIONS. NO ILLICIT SUBSTANCES AND PRESCRIBED MEDICATIONS WERE PRESENT. OTHERS NOTES: 01/11/20 PT HUNG UP ON ME THEN WOULDN'T ANSWER PHONE. 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 PROCEDURE CODES FA211 ESTABILISHED PATIENT [facility] CHARGE DISPOSITION & COMMUNICATION FOLLOW UP 4 WEEKS (REASON: COCCYDYNIA, NEW MEDICATION) ELECTRONICALLY SIGNED BY MARCELA BHAGAT ON 01/13/2020 AT 10:03 AM EDT DISCLAIMER : THIS IS A VISIT SUMMARY EXTRACTED FROM THE [employer] CHART. IT IS NOT A COPY OF THE [employer] PROGRESS NOTE. CANDIDO
== END ==
LOC: M PAIN 13:00
PROVIDERS: ATTEND Family Medicine
DX: M53.3 Sacrococcygeal disorders, not elsewhere classified (principal); E11.9 Type 2 diabetes mellitus without complications; Q05.9 Spina bifida, unspecified; K21.9 Gastro-esophageal reflux disease without esophagitis; G47.33 Obstructive sleep apnea (adult) (pediatric); Z86.14 Personal history of Methicillin resistant Staphylococcus aureus infection; Z86.59 Personal history of other mental and behavioral disorders; Z86.711 Personal history of pulmonary embolism; Z86.718 Personal history of other venous thrombosis and embolism; Z87.891 Personal history of nicotine dependence; Z88.1 Allergy status to other antibiotic agents; E66.01 Morbid (severe) obesity due to excess calories; Z68.41 Body mass index [BMI] 40.0-44.9, adult; Z79.01 Long term (current) use of anticoagulants; Z79.4 Long term (current) use of insulin; Z79.82 Long term (current) use of aspirin; Z79.899 Other long term (current) drug therapy

== ENCOUNTER → 2020-02-23 | Outpatient (CLI) | payer MEDICARE, OTHER, MEDICAID ==
--- NOTE | 2020-02-25 01:27 | ECWPNPC ---
PATIENT NAME: SKYLER ESCALANTE : 1970 GENDER: MALE VISIT DATE: 02/23/2020 DISCHARGE DATE: 02/23/20 1404 VISIT LOCKED DATE TIME: PHYSICIAN: NICOLAS ROBBINS PHYSICIAN PAGER NO: ACTIVE RESOURCE: NICOLAS ROBBINS REASON FOR APPOINTMENT 1. COCCYDYNIA-NEW MED HISTORY OF PRESENT ILLNESS GENERAL: 50-YEAR-OLD MALE IN FOR CHRONIC PAIN FOLLOW-UP. HE FEELS THE MEDICATIONS ARE HELPFUL BUT DOES ADMIT THAT HE TAKES HIS MEDICATION ON AN -NEEDED BASIS BEFORE BED SOMETIMES IT KEEPS HIM AWAKE. HE RATES HIS PAIN CURRENTLY AT A 5 OUT OF 10 AND DESCRIBES IT ACHING. FALL RISK SCREENING: SCREENING :NO FALLS REPORTED IN THE LAST YEAR PAIN SCREENING: PATIENT HAS A COMPLAINT OF ACUTE OR CHRONIC PAIN :YES LOCATION OF PAIN:RIGHT HIP INTENSITY OF PAIN (SCALE OF 1 TO 10):5 WHAT DOES YOUR PAIN FEEL LIKE:ACHING DURATION:INTERMITTENT PAIN IS INCREASED BY:OTHERS COLD WEATHER PAIN IS DECREASED BY:USE OF PAIN MEDICATIONS TREATMENT/MEDICATIONS USED TO MANAGE PAIN:OPIOIDS LEVEL OF RELIEF FROM PAIN TREATMENTS IN THE PAST:75% PAIN HAS INTERFERED WITH THE FOLLOWING:BATHING/DRESSING, HOUSEWORK, SLEEP, TRANSPORTATION, TOILETING NURSING NOTE: -. PAIN CENTER INTAKE QUESTIONS: DO YOU HAVE A HISTORY OF MRSA? :YES BUTTOCKS 2015 DO YOU TAKE A BLOOD THINNERS? :YES ELIQUIS DO YOU HAVE ANY BLEEDING DISORDERS? :NO ANY NEW NUMBNESS OR WEAKNESS IN YOUR LEGS OR ARMS? :NO ANY PACEMAKER,DEFIBRILLATOR, OR DORSAL COLUMN STIMULATOR? :NO DO YOU HAVE ANY RASHES OR OPEN SORES? :YES OPEN SORE TO BUTTOCKS ARE YOU ALLERGIC TO IV DYE? :NO ARE YOU DIABETIC? :YES ANY NEW PROBLEMS WITH YOUR MEDICATIONS? :NO HAVE YOU RECEIVED A VACCINE IN THE PAST 30 DAYS? :NO DO YOU PLAN TO RECEIVE A VACCINE IN THE NEXT 21 DAYS? :NO DO YOU NEED ANY PRESCRIPTION? :YES NORCO DO YOU TAKE ANY IMMUNOSUPPRESSIVE MEDICATIONS? :NO IS THERE A CHANCE YOU COULD BE ? :NO ARE YOU BREAST FEEDING? :NO CURRENT MEDICATIONS TAKING NYSTATIN [id number] UNIT/GM CREAM 1 APPLICATION EXTERNALLY TWICE A DAY TO ABDOMINAL RASH TAKING SERTRALINE HCL 100 MG TABLET 1 TABLET ORALLY ONCE A DAY TAKING CARVEDILOL 6.25 MG TABLET 1 TAB ORALLY TWICE DAILY TAKING HUMALOG KWIKPEN 100 UNIT/ML SOLUTION SLIDING SCALE/ SUBCUTANEOUS 151-200=[id number]=6UNITS 301-350=[id number] [id number]=12UNITS>450=14-UNITS, NOTES: 30 UNITS TAKING UNIFINE PENTIPS 31G X 5 MM MISCELLANEOUS 1 PEN TIP SUBCUTANEOUSLY DAILY WITH AM INSULIN AND 4 TIMES A DAY WITH SLIDING SCALE = 4 TIMES A DAY TAKING EMBRACE BLOOD GLUCOSE TEST - STRIP 1 LANCET IN VITRO FOUR TIMES DAILY TAKING MULTIVITAMIN ADULT - TABLET 1 TAB ORALLY DAILY TAKING OSTOMY DRAINABLE POUCH/FLANGE - MISCELLANEOUS CONVATEC POUCHES AND FLANGES-2 3/4 INCHES DX: Z93.3 DAILY USE TAKING MAGNESIUM LACTATE 84 MG (7MEQ) TABLET EXTENDED RELEASE 3 TABLETS ORALLY FOUR TIMES DAILY TAKING ROSUVASTATIN CALCIUM 20 MG TABLET 1 TABLET ORALLY ONCE A DAY TAKING BASAGLAR KWIKPEN 100 UNIT/ML SOLUTION PEN-INJECTOR DIRECTED SUBCUTANEOUS , NOTES: 20 UNITS TAKING ASPIR-LOW 81 MG TABLET DELAYED RELEASE 1 TABLET ORALLY ONCE A DAY TAKING PANTOPRAZOLE SODIUM 40 MG TABLET DELAYED RELEASE 1 TABLET ORALLY ONCE A DAY TAKING NITROGLYCERIN 0.4 MG TABLET SUBLINGUAL DIRECTED SUBLINGUAL TAKING ACETAMINOPHEN 325 MG CAPSULE 2 CAPSULE NEEDED ORALLY EVERY 4 HRS PRN TAKING ALBUTEROL SULFATE HFA 108 (90 BASE) MCG/ACT AEROSOL SOLUTION 1 PUFF NEEDED INHALATION EVERY 4 HRS TAKING LISINOPRIL 5 MG TABLET 1 TABLET ORALLY ONCE A DAY TAKING MALE EXTERNAL CATHETER MEDIUM - MISCELLANEOUS DIRECTED DIRECTED, CHANGE DAILY, DX CODE N31.9, R32 TAKING METFORMIN HCL 500 MG TABLET 1 TABLET WITH A MEAL ORALLY ONCE A DAY TAKING TRULICITY 0.75 MG/0.5ML SOLUTION PEN-INJECTOR DIRECTED SUBCUTANEOUS TAKING CARVEDILOL 6.25 MG TABLET 1 TABLET WITH FOOD ORALLY TWICE A DAY TAKING ELIQUIS 5 MG TABLET TAKE 1 TABLET BY MOUTH TWICE A DAY TAKING NORCO 5-325 MG TABLET 1 TABLET NEEDED ORALLY EVERY 12 HRS PRN NOT-TAKING JANUVIA 50 MG TABLET 1 TABLET ORALLY ONCE A DAY NOT-TAKING LEVOFLOXACIN 500 MG TABLET 1 TABLET ORALLY ONCE A DAY NOT-TAKING CEPHALEXIN 500 MG CAPSULE 1 TABLET ORALLY EVERY 6 HOURS NOT-TAKING FERROUS SULFATE 325 MG CAPSULE DIRECTED ORALLY NOT-TAKING VITAMIN C 500 MG TABLET CHEWABLE 1 TABLET ORALLY ONCE A DAY NOT-TAKING BASAGLAR KWIKPEN 100 UNIT/ML SOLUTION PEN-INJECTOR DIRECTED SUBCUTANEOUS 32 UNITS IN AM NOT-TAKING MAY HAVE - - # 18 FR HARP KIT TO SELF CATH/ DX CODE : NEUROGENIC BLADDER: N.31 MONTHLY NOT-TAKING MAY HAVE - - URO-JET TO NUMB PENIS WHEN SELF CATHING DX CODE: NEUROGENIC BLADDER; N31.9 MONTHLY NOT-TAKING BACTROBAN 2 % CREAM 1 APPLICATION TO RIGHT FIRST FINGER TOPICALLY THREE TIMES A DAY NOT-TAKING BENADRYL ALLERGY 25 MG TABLET 1 TABLET ORALLY OTC NOT-TAKING MELATONIN 5 MG TABLET 1 TABLET AT BEDTIME NEEDED WITH FOOD ORALLY ONCE A DAY MEDICATION LIST REVIEWED AND RECONCILED WITH THE PATIENT PAST MEDICAL HISTORY SPINAL BIFIDA-WHEELCHAIR BOUND HISTORY OF CAD MORBID OBESITY GERD DEPRESSION DYLIPIDEMIA DM2 WITH INSULIN MUNIRA ON CPAP - FOLLOWS WITH PULM ASSOC MICROCYTIC ANEMIA CHRONIC BILATERAL SACRAL DECUBITUS AND GROIN WOUNDS/SKIN MACERATION BLEEDING BUTTOCK WOUNDS SECONDARY TO ANTICOAGULATION WHILE ON COUMADIN. URINARY RETENTION WITH CHRONIC 18FR HARP COLOSTOMY HX MRSA INFECTIONS HISTORY OF DVT AND PULMONARY EMBOLISM ALLERGIES BACTRIM: HIVES - SIDE EFFECTS SURGICAL HISTORY FISTULA X 2 2017 COLOSTOMY HERNIA REPAIR CYSTOSCOPY 01/02/2020 FAMILY HISTORY PATIENT WAS ADOPTED AND DOESN'T HAVE ANY INFORMATION ABOUT PARENTS. SOCIAL HISTORY GENERAL: TOBACCO USE ARE YOU A:FORMER SMOKER HOW LONG HAS IT BEEN SINCE YOU LAST SMOKED?5-10 YEARS LATEX QUESTIONNAIRE LATEX ALLERGY : HAVE YOU EVER DEVELOPED ANY TYPE OF REACTION AFTER HANDLING LATEX PRODUCTS SUCH RUBBER GLOVES, CONDOMS, DIAPHRAGMS, BALLOONS, SOCKS, OR UNDERWEAR?NO LATEX ALLERGY : HAVE YOU EVER DEVELOPED ANY TYPE OF REACTION DURING OR AFTER DENTAL APPOINTMENT, VAGINAL/RECTAL EXAMINATION, SURGICAL PROCEDURE, OR ANY OTHER EXPOSURE?NO DATE ASKED : 01/12/2020 LATEX RISK : HAVE YOU EVER HAD ANY DIFFICULTY BREATHING OR HIVES AFTER EATING OR HANDLING ANY FRUITS, OR VEGETABLES; SUCH KIWI, BANANAS, STONE FRUITS, OR CHESTNUTSNO LATEX RISK : DO YOU HAVE A PREVIOUS PERSONAL HISTORY OF MORE THAN NINE SURGERIES, SPINA BIFIDA, OR REPEATED CATHERIZATIONS? YES - PLEASE INDICATE : > 9 SURGERIES, SPINE ABIFIDA LATEX RISK : ARE YOU FREQUENTLY EXPOSED TO LATEX PRODUCTS IN YOUR OCCUPATION?NO BMI CARE GOAL FOLLOW-UP ABOVE NORMAL BMI FOLLOW-UPDIETARY MANAGEMENT EDUCATION, GUIDANCE, AND COUNSELING, DIETARY NEEDS EDUCATION ALCOHOL SCREENING DID YOU HAVE A DRINK CONTAINING ALCOHOL IN THE PAST YEAR?NO POINTS0 INTERPRETATIONNEGATIVE RECREATIONAL DRUG USE DRUG USE?NO CAFFEINE CAFFEINE USE?YES HOW OFTEN AND HOW MUCH? 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 DIET: CARBOHYDRATE CONTROLLED. EXERCISE: NO REGULAR EXERCISE. MARITAL STATUS: . OTHERS AT HOME: SPOUSE. HOUSING: RENTS APARTMENT. ADVANCE DIRECTIVE ADVANCE DIRECTIVE DISCUSSED WITH PATIENT:YES BROTHER MARYCHUY [phone] HOSPITALIZATION/MAJOR DIAGNOSTIC PROCEDURE HEART ATTACK 2014 UTI/SEPSIS 05/2019 REVIEW OF SYSTEMS CONSTITUTIONAL: ANY RECENT FEVER NO . CHILLS NO . WEIGHT CHANGE OF UNKNOWN REASONS NO . GASTROENTEROLOGY: NEW UNEXPLAINABLE CHANGES IN BOWEL CONTROL NO . CONSTIPATION NO . GENITOURINARY: ANY NEW CHANGE IN BLADDER CONTROL? NO . NEUROLOGY: NEW ONSET DIZZINESS OR NEUROLOGICAL CHANGES NOT MENTIONED NO . NEW NUMBNESS OR PAIN PATTERNS NOT MENTIONED AND PERTINENT TO TODAY'S VISIT NO . CARDIOLOGY: NEW CHEST PRESSURE NO . NEW CHEST PAIN NO . RESPIRATORY: UNEXPLAINABLE COUGH NO . NEW SHORTNESS OF BREATH NO . VITAL SIGNS WT 240 LBS, WT-KG PER.PT, HT 63 IN, BMI 42.51 INDEX, BP 158/80 MM HG, HR 84 /MIN, RR 18 /MIN, TEMP 98.3 F, OXYGEN SAT % 99%, SAFE IN ENV? (Y/N) Y, NA INITIALS TX 13:38, REVIEWED BY: DRU. EXAMINATION GENERAL EXAMINATION: GENERALNO ACUTE DISTRESS, WELL NOURISHED AND HYDRATED. PSYCHAPPROPRIATE MOOD AND AFFECT . LUNGS:CLEAR TO AUSCULTATION BILATERALLY, NO WHEEZES, RHONCHI, RALES. HEART:NO MURMURS, REGULAR RATE AND RHYTHM. ASSESSMENTS SACROCOCCYGEAL DISORDERS, NOT ELSEWHERE CLASSIFIED - M53.3 (PRIMARY) TREATMENT SACROCOCCYGEAL DISORDERS, NOT ELSEWHERE CLASSIFIED NOTES: 50-YEAR-OLD MALE IN FOR CHRONIC PAIN FOLLOW-UP. GIVEN PRESENTING SYMPTOMS RECOMMEND CONTINUATION OF CURRENT MEDICATION REGIMEN WITH FOLLOW-UP IN 3 MONTHS. PATIENT HAS EXPRESSED UNDERSTANDING OF AND WAS IN AGREEMENT WITH TREATMENT PLAN. GIVEN TIME TO ASK QUESTIONS AND EXPRESS CONCERNS. , ISTOP REGISTRY REVIEWED AND DEMONSTRATES COMPLLIANCE. (REF # [id number]) BRINGS IN MEDICATIONS WHICH IS APPROPRIATE FOR WHAT WAS DISPENSED. RECENT URINE TOXICOLOGY REVIEWED. NO UNAUTHORIZED MEDICATIONS. NO ILLICIT SUBSTANCES AND PRESCRIBED MEDICATIONS WERE PRESENT. PROCEDURE CODES FA211 ESTABILISHED PATIENT [facility] CHARGE DISPOSITION & COMMUNICATION FOLLOW UP 3 MONTHS (REASON: CHRONIC PAIN) ELECTRONICALLY SIGNED BY MARCELA BHAGAT ON 02/24/2020 AT 12:54 PM EST DISCLAIMER : THIS IS A VISIT SUMMARY EXTRACTED FROM THE [employer] CHART. IT IS NOT A COPY OF THE [employer] PROGRESS NOTE. CANDIDO
== END ==
LOC: M PAIN 13:45
PROVIDERS: ATTEND Family Medicine
DX: M53.3 Sacrococcygeal disorders, not elsewhere classified (principal); G89.29 Other chronic pain; E11.9 Type 2 diabetes mellitus without complications; G47.33 Obstructive sleep apnea (adult) (pediatric); Z86.14 Personal history of Methicillin resistant Staphylococcus aureus infection; Z86.59 Personal history of other mental and behavioral disorders; Z87.891 Personal history of nicotine dependence; Z88.1 Allergy status to other antibiotic agents; E66.01 Morbid (severe) obesity due to excess calories; Z68.41 Body mass index [BMI] 40.0-44.9, adult; Z79.01 Long term (current) use of anticoagulants; Z79.4 Long term (current) use of insulin; Z79.82 Long term (current) use of aspirin; Z79.899 Other long term (current) drug therapy

== ENCOUNTER → 2020-05-23 | Outpatient (CLI) | payer MEDICARE, OTHER, MEDICAID ==
[~2020-05-23] MED LIST changes: -LISI-542 PO; +LISI-898 PO
--- NOTE | 2020-05-26 05:33 | ECWPNPC ---
PATIENT NAME: SKYLER ESCALANTE : 1970 GENDER: MALE VISIT DATE: 05/23/2020 DISCHARGE DATE: 05/23/20 1450 VISIT LOCKED DATE TIME: PHYSICIAN: NICOLAS ROBBINS PHYSICIAN PAGER NO: ACTIVE RESOURCE: NICOLAS ROBBINS REASON FOR APPOINTMENT 1. CHRONIC PAIN HISTORY OF PRESENT ILLNESS PAIN CENTER INTAKE QUESTIONS: 50 YEAR OLD MALE IN FOR CHRONIC PAIN FOLLOW UP. HE RATES HIS PAIN CURRENTLY AT A 5/10 AND DESCRIBES IT THROBBING. HE FEELS HIS MEDICATIONS ARE HELPFUL AND DENIES MED SIDE EFFECTS AT THIS TIME. GENERAL: -. FALL RISK SCREENING: SCREENING : NO FALLS REPORTED IN THE LAST YEAR. PAIN SCREENING: PATIENT HAS A COMPLAINT OF ACUTE OR CHRONIC PAIN :YES LOCATION OF PAIN:LEG(S) UPPER RIGHT LEG INTENSITY OF PAIN (SCALE OF 1 TO 10):5 WHAT DOES YOUR PAIN FEEL LIKE:THROBBING DURATION:CONTINOUS, CONSTANT PAIN IS INCREASED BY:OTHERS PROLONGED SITTING PAIN IS DECREASED BY:USE OF PAIN MEDICATIONS NURSING NOTE: -. CURRENT MEDICATIONS TAKING UNIFINE PENTIPS 31G X 5 MM MISCELLANEOUS 1 PEN TIP SUBCUTANEOUSLY DAILY WITH AM INSULIN AND 4 TIMES A DAY WITH SLIDING SCALE = 4 TIMES A DAY TAKING EMBRACE BLOOD GLUCOSE TEST - STRIP 1 LANCET IN VITRO FOUR TIMES DAILY TAKING MULTIVITAMIN ADULT - TABLET 1 TAB ORALLY DAILY TAKING OSTOMY DRAINABLE POUCH/FLANGE - MISCELLANEOUS CONVATEC POUCHES AND FLANGES-2 3/4 INCHES DX: Z93.3 DAILY USE TAKING MAGNESIUM LACTATE 84 MG (7MEQ) TABLET EXTENDED RELEASE 3 TABLETS ORALLY FOUR TIMES DAILY TAKING ACETAMINOPHEN 325 MG CAPSULE 2 CAPSULE NEEDED ORALLY EVERY 4 HRS PRN TAKING ALBUTEROL SULFATE HFA 108 (90 BASE) MCG/ACT AEROSOL SOLUTION 1 PUFF NEEDED INHALATION EVERY 4 HRS TAKING MALE EXTERNAL CATHETER MEDIUM - MISCELLANEOUS DIRECTED DIRECTED, CHANGE DAILY, DX CODE N31.9, R32 TAKING NORCO 5-325 MG TABLET 1 TABLET NEEDED ORALLY EVERY 12 HRS PRN TAKING ELIQUIS 5 MG TABLET TAKE 1 TABLET BY MOUTH TWICE A DAY TAKING LISINOPRIL 5 MG TABLET TAKE 1 TABLET BY MOUTH EVERY DAY TAKING CARVEDILOL 6.25 MG TABLET 1 TAB ORALLY TWICE DAILY TAKING HUMALOG KWIKPEN 100 UNIT/ML SOLUTION SLIDING SCALE/ SUBCUTANEOUS [id number]=12UNITS>450=14-UNITS, NOTES: 30 UNITS TAKING ASPIR-LOW 81 MG TABLET DELAYED RELEASE 1 TABLET ORALLY ONCE A DAY TAKING NITROGLYCERIN 0.4 MG TABLET SUBLINGUAL DIRECTED SUBLINGUAL TAKING LISINOPRIL 5 MG TABLET 1 TABLET ORALLY ONCE A DAY TAKING METFORMIN HCL 500 MG TABLET 1 TABLET WITH A MEAL ORALLY ONCE A DAY TAKING TRULICITY 0.75 MG/0.5ML SOLUTION PEN-INJECTOR DIRECTED SUBCUTANEOUS TAKING LANTUS SOLOSTAR 100 UNIT/ML SOLUTION PEN-INJECTOR DIRECTED 60 UNITS SUBCUTANEOUS TAKING ROSUVASTATIN CALCIUM 20 MG TABLET TAKE 1 TABLET BY MOUTH EVERY DAY AT NIGHT TAKING PANTOPRAZOLE SODIUM 40 MG TABLET DELAYED RELEASE TAKE 1 TABLET BY MOUTH EVERY DAY TAKING SERTRALINE HCL 100 MG TABLET 1.5 TABLET ORALLY ONCE A DAY TAKING NYSTATIN [id number] UNIT/GM POWDER 1 APPLICATION EXTERNALLY TWICE A DAY TAKING MELATONIN 3 MG TABLET 1 TABLET AT BEDTIME NEEDED ORALLY ONCE A DAY TAKING LOTRIMIN AF 1 % CREAM 1 APPLICATION EXTERNALLY TWICE A DAY NOT-TAKING CARVEDILOL 6.25 MG TABLET 1 TABLET WITH FOOD ORALLY TWICE A DAY, NOTES: DUPLICATE MEDICATION LIST REVIEWED AND RECONCILED WITH THE PATIENT PAST MEDICAL HISTORY SPINAL BIFIDA-WHEELCHAIR BOUND HISTORY OF CAD; HAD [place] DURING SURGERY FOR STRANGULATED HERNIA - DR. 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 URINARY RETENTION, CHRONIC INCONTINENCE COLOSTOMY S/P SURGERY FOR STRANGULATED HERNIA HX MRSA INFECTIONS HISTORY OF DVT AND PULMONARY EMBOLISM ALLERGIES BACTRIM: HIVES - SIDE EFFECTS SOCIAL HISTORY GENERAL: TOBACCO USE ARE YOU A:FORMER SMOKER HOW LONG HAS IT BEEN SINCE YOU LAST SMOKED?5-10 YEARS LATEX QUESTIONNAIRE LATEX ALLERGY : HAVE YOU EVER DEVELOPED ANY TYPE OF REACTION AFTER HANDLING LATEX PRODUCTS SUCH RUBBER GLOVES, CONDOMS, DIAPHRAGMS, BALLOONS, SOCKS, OR UNDERWEAR?NO LATEX ALLERGY : HAVE YOU EVER DEVELOPED ANY TYPE OF REACTION DURING OR AFTER DENTAL APPOINTMENT, VAGINAL/RECTAL EXAMINATION, SURGICAL PROCEDURE, OR ANY OTHER EXPOSURE?NO LATEX RISK : HAVE YOU EVER HAD ANY DIFFICULTY BREATHING OR HIVES AFTER EATING OR HANDLING ANY FRUITS, OR VEGETABLES; SUCH KIWI, BANANAS, STONE FRUITS, OR CHESTNUTSNO LATEX RISK : DO YOU HAVE A PREVIOUS PERSONAL HISTORY OF MORE THAN NINE SURGERIES, SPINA BIFIDA, OR REPEATED CATHERIZATIONS? YES - PLEASE INDICATE : > 9 SURGERIES, SPINE ABIFIDA LATEX RISK : ARE YOU FREQUENTLY EXPOSED TO LATEX PRODUCTS IN YOUR OCCUPATION?NO DATE ASKED : 05/23/2020 ALCOHOL USE: OCCASIONAL. BMI CARE GOAL FOLLOW-UP ABOVE NORMAL BMI FOLLOW-UPDIETARY MANAGEMENT EDUCATION, GUIDANCE, AND COUNSELING, DIETARY NEEDS EDUCATION ALCOHOL SCREENING DID YOU HAVE A DRINK CONTAINING ALCOHOL IN THE PAST YEAR?NO POINTS0 INTERPRETATIONNEGATIVE RECREATIONAL DRUG USE DRUG USE?NO CAFFEINE CAFFEINE USE?YES HOW OFTEN AND HOW MUCH? 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 DIET: CARBOHYDRATE CONTROLLED. EXERCISE: NO REGULAR EXERCISE. MARITAL STATUS: . OTHERS AT HOME: SPOUSE. HOUSING: RENTS APARTMENT. ADVANCE DIRECTIVE ADVANCE DIRECTIVE DISCUSSED WITH PATIENT:YES BROTHER MARYCHUY [phone] REVIEW OF SYSTEMS CONSTITUTIONAL: ANY RECENT FEVER NO . CHILLS NO . WEIGHT CHANGE OF UNKNOWN REASONS NO . GASTROENTEROLOGY: NEW UNEXPLAINABLE CHANGES IN BOWEL CONTROL NO . CONSTIPATION NO . GENITOURINARY: ANY NEW CHANGE IN BLADDER CONTROL? NO . NEUROLOGY: NEW ONSET DIZZINESS OR NEUROLOGICAL CHANGES NOT MENTIONED NO . NEW NUMBNESS OR PAIN PATTERNS NOT MENTIONED AND PERTINENT TO TODAY'S VISIT NO . CARDIOLOGY: NEW CHEST PRESSURE NO . PATIENT DENIES NO . RESPIRATORY: UNEXPLAINABLE COUGH NO . NEW SHORTNESS OF BREATH NO . VITAL SIGNS WT 240 PER PATIENT, HT 63 IN, BMI 42.51 INDEX, BP 141/78 MM HG, HR 91 /MIN, RR 18 /MIN, TEMP 98.2 F, OXYGEN SAT % 96%, SAFE IN ENV? (Y/N) YES, REVIEWED BY: MARICEL GILLIAM MA. EXAMINATION GENERAL EXAMINATION: GENERALNO ACUTE DISTRESS, WELL NOURISHED AND HYDRATED. PSYCHAPPROPRIATE MOOD AND AFFECT . LUNGS:CLEAR TO AUSCULTATION BILATERALLY, NO WHEEZES, RHONCHI, RALES. HEART:NO MURMURS, REGULAR RATE AND RHYTHM. ASSESSMENTS SACROCOCCYGEAL DISORDERS, NOT ELSEWHERE CLASSIFIED - M53.3 (PRIMARY) TREATMENT SACROCOCCYGEAL DISORDERS, NOT ELSEWHERE CLASSIFIED NOTES: 50-YEAR-OLD MALE IN FOR CHRONIC PAIN FOLLOW-UP. GIVEN PRESENTING SYMPTOMS RECOMMEND CONTINUATION OF CURRENT MEDICATION REGIMEN WITH FOLLOW-UP IN 3 MONTHS. PATIENT HAS EXPRESSED UNDERSTANDING OF AND WAS IN AGREEMENT WITH TREATMENT PLAN. GIVEN TIME TO ASK QUESTIONS AND EXPRESS CONCERNS. , ISTOP REGISTRY REVIEWED AND DEMONSTRATES COMPLLIANCE. (REF # [id number]) BRINGS IN MEDICATIONS WHICH IS APPROPRIATE FOR WHAT WAS DISPENSED. RECENT URINE TOXICOLOGY REVIEWED. NO UNAUTHORIZED MEDICATIONS. NO ILLICIT SUBSTANCES AND PRESCRIBED MEDICATIONS WERE PRESENT. OTHERS REFILL NORCO TABLET, 5-325 MG, 1 TABLET NEEDED, ORALLY, EVERY 12 HRS PRN, 30 DAY(S), 60 PROCEDURE CODES FA211 ESTABILISHED PATIENT [facility] CHARGE DISPOSITION & COMMUNICATION FOLLOW UP 3 MONTHS (REASON: CHRONIC PAIN ) ELECTRONICALLY SIGNED BY MARCELA BHAGAT ON 05/25/2020 AT 08:31 AM EST DISCLAIMER : THIS IS A VISIT SUMMARY EXTRACTED FROM THE [employer] CHART. IT IS NOT A COPY OF THE [employer] PROGRESS NOTE. MTDD
== END ==
LOC: M PAIN 14:30
PROVIDERS: ATTEND Family Medicine
DX: M53.3 Sacrococcygeal disorders, not elsewhere classified (principal); I25.10 Atherosclerotic heart disease of native coronary artery without angina pectoris; Q05.9 Spina bifida, unspecified; Z99.3 Dependence on wheelchair; I25.2 Old myocardial infarction; E66.01 Morbid (severe) obesity due to excess calories; K21.9 Gastro-esophageal reflux disease without esophagitis; F32.9 Major depressive disorder, single episode, unspecified; E78.5 Hyperlipidemia, unspecified; E11.9 Type 2 diabetes mellitus without complications; G47.33 Obstructive sleep apnea (adult) (pediatric); D50.9 Iron deficiency anemia, unspecified; R33.9 Retention of urine, unspecified; R32 Unspecified urinary incontinence; Z86.14 Personal history of Methicillin resistant Staphylococcus aureus infection; Z86.711 Personal history of pulmonary embolism; Z86.718 Personal history of other venous thrombosis and embolism; Z87.891 Personal history of nicotine dependence; Z93.3 Colostomy status; Z79.01 Long term (current) use of anticoagulants; Z79.891 Long term (current) use of opiate analgesic; Z79.4 Long term (current) use of insulin; Z88.2 Allergy status to sulfonamides; Z68.41 Body mass index [BMI] 40.0-44.9, adult

== ENCOUNTER → 2020-05-30 | Outpatient (CLI) | payer MEDICARE, OTHER, MEDICAID ==
[2020-05-30 13:20] LABS: HEMATOCRIT 44.3 % (42.0-52.0); HEMOGLOBIN 13.2 g/dl (13.5-17.5); MEAN CORPUSCULAR HGB CONC 29.8 g/dl (32.0-36.5); MEAN CORPUSCULAR VOLUME 77.3 fl (80.0-96.0); PLATELET COUNT, AUTOMATED 292 10^3/uL (150-450); RED BLOOD COUNT 5.73 10^6/uL (4.30-6.10); WHITE BLOOD COUNT 10.1 10^3/uL (4.0-10.0)
[2020-05-30 14:12] LABS: BLOOD UREA NITROGEN 7 MG/DL (7-18); CARBON DIOXIDE LEVEL 28 MEQ/L (21-32); CHLORIDE LEVEL 102 MEQ/L (98-107); CREATININE FOR GFR 0.61 MG/DL (0.70-1.30); GLOMERULAR FILTRATION RATE > 60.0 (>56); GLUCOSE, FASTING 237 MG/DL (70-100); POTASSIUM SERUM 4.3 MEQ/L (3.5-5.1); SODIUM LEVEL 135 MEQ/L (136-145)
[2020-05-30 14:13] LABS: ALBUMIN 2.9 GM/DL (3.2-5.2); ALT/SGPT 13 U/L (12-78); BILIRUBIN,TOTAL 0.6 MG/DL (0.2-1.0); CALCIUM LEVEL 9.1 MG/DL (8.5-10.1); CHOLESTEROL LEVEL 111 MG/DL (<200); CHOLESTEROL RISK RATIO 3.264 (<5); FERRITIN 70 NG/ML (26-388); HDL CHOLESTEROL 34 MG/DL (>40); IRON (FE) 26 UG/DL (65-175); LDL CHOLESTEROL 45 MG/DL (<100); NON-HDL-C 77 MG/DL; PERCENT SATURATION 9.5 % (19.7-50.0); TOTAL IRON BINDING CAPACITY 273 UG/DL (250-450); TOTAL PROTEIN 7.7 GM/DL (6.4-8.2); TRIGLYCERIDES LEVEL 162 MG/DL (<150)
[2020-05-30 14:34] LABS: HEMOGLOBIN A1c 11.9 %
== END ==
LOC: M LAB 12:25
PROVIDERS: ATTEND Family Medicine
DX: E78.5 Hyperlipidemia, unspecified (principal); D50.9 Iron deficiency anemia, unspecified; E11.8 Type 2 diabetes mellitus with unspecified complications

== ENCOUNTER → 2020-08-17 | Outpatient (CLI) | payer MEDICARE, MEDICAID ==
[~2020-08-17] MED LIST changes: -ACET-908 PO; +ACET-910 PO
--- NOTE | 2020-08-21 01:38 | ECWPNPC ---
PATIENT NAME: SKYLER ESCALANTE : 1970 GENDER: MALE VISIT DATE: 08/17/2020 DISCHARGE DATE: 08/17/20 1221 VISIT LOCKED DATE TIME: PHYSICIAN: NICOLAS ROBBINS PHYSICIAN PAGER NO: ACTIVE RESOURCE: NICOLAS ROBBINS REASON FOR APPOINTMENT 1. CHRONIC PAIN HISTORY OF PRESENT ILLNESS GENERAL: HPI 50-YEAR-OLD MALE IN FOR CHRONIC PAIN FOLLOW-UP. HE RATES HIS PAIN CURRENTLY AT A 10 OUT OF 10 AND DESCRIBES IT ACHING, BURNING, AND THROBBING. HE FEELS MEDICATIONS ARE HELPFUL BUT THEY DO NOT COMPLETELY COVER HIS PAIN.. - - -. FALL RISK SCREENING: SCREENING : NO FALLS REPORTED IN THE LAST YEAR , : NO FALLS REPORTED IN THE LAST YEAR , : NO FALLS REPORTED IN THE LAST YEAR. PAIN SCREENING: PATIENT HAS A COMPLAINT OF ACUTE OR CHRONIC PAIN :YES LOCATION OF PAIN:OTHER: BUTTOCKS INTENSITY OF PAIN (SCALE OF 1 TO 10):10 WHAT DOES YOUR PAIN FEEL LIKE:ACHING, BURNING, THROBBING DURATION:CONTINOUS, CONSTANT, AWAKENS FROM SLEEP PAIN IS INCREASED BY:ACTIVITIES PAIN IS DECREASED BY:OTHERS NOTHING HELPS THE PAIN NURSING NOTE: - - -. PAIN CENTER INTAKE QUESTIONS: DO YOU HAVE A HISTORY OF MRSA? :YES DO YOU TAKE A BLOOD THINNERS? :YES ELOQUIS DO YOU HAVE ANY BLEEDING DISORDERS? :NO ANY NEW NUMBNESS OR WEAKNESS IN YOUR LEGS OR ARMS? :NO ANY PACEMAKER,DEFIBRILLATOR, OR DORSAL COLUMN STIMULATOR? :NO DO YOU HAVE ANY RASHES OR OPEN SORES? :YES ARE YOU ALLERGIC TO IV DYE? :NO ARE YOU DIABETIC? :YES ANY NEW PROBLEMS WITH YOUR MEDICATIONS? :NO HAVE YOU RECEIVED A VACCINE IN THE PAST 30 DAYS? :NO DO YOU PLAN TO RECEIVE A VACCINE IN THE NEXT 21 DAYS? :NO DO YOU NEED ANY PRESCRIPTION? :NO DO YOU TAKE ANY IMMUNOSUPPRESSIVE MEDICATIONS? :NO DO YOU HAVE ANY KIDNEY OR LIVER DISEASE? :NO IS THERE A CHANCE YOU COULD BE ? :NO ARE YOU BREAST FEEDING? :NO CURRENT MEDICATIONS TAKING UNIFINE PENTIPS 31G X 5 MM MISCELLANEOUS 1 PEN TIP SUBCUTANEOUSLY DAILY WITH AM INSULIN AND 4 TIMES A DAY WITH SLIDING SCALE = 4 TIMES A DAY TAKING EMBRACE BLOOD GLUCOSE TEST - STRIP 1 LANCET IN VITRO FOUR TIMES DAILY TAKING MULTIVITAMIN ADULT - TABLET 1 TAB ORALLY DAILY TAKING OSTOMY DRAINABLE POUCH/FLANGE - MISCELLANEOUS CONVATEC POUCHES AND FLANGES-2 3/4 INCHES DX: Z93.3 DAILY USE TAKING MAGNESIUM LACTATE 84 MG (7MEQ) TABLET EXTENDED RELEASE 3 TABLETS ORALLY FOUR TIMES DAILY TAKING ACETAMINOPHEN 325 MG CAPSULE 2 CAPSULE NEEDED ORALLY EVERY 4 HRS PRN TAKING ALBUTEROL SULFATE HFA 108 (90 BASE) MCG/ACT AEROSOL SOLUTION 1 PUFF NEEDED INHALATION EVERY 4 HRS TAKING MALE EXTERNAL CATHETER MEDIUM - MISCELLANEOUS DIRECTED DIRECTED, CHANGE DAILY, DX CODE N31.9, R32 TAKING ELIQUIS 5 MG TABLET TAKE 1 TABLET BY MOUTH TWICE A DAY TAKING CARVEDILOL 6.25 MG TABLET 1 TAB ORALLY TWICE DAILY TAKING HUMALOG KWIKPEN 100 UNIT/ML SOLUTION SLIDING SCALE/ SUBCUTANEOUS [id number]=[id number]=10 [id number]=12UNITS>450=14-UNITS, NOTES: 30 UNITS TAKING ASPIR-LOW 81 MG TABLET DELAYED RELEASE 1 TABLET ORALLY ONCE A DAY TAKING NITROGLYCERIN 0.4 MG TABLET SUBLINGUAL DIRECTED SUBLINGUAL TAKING LISINOPRIL 5 MG TABLET 1 TABLET ORALLY ONCE A DAY TAKING METFORMIN HCL 500 MG TABLET 1 TABLET WITH A MEAL ORALLY ONCE A DAY TAKING LANTUS SOLOSTAR 100 UNIT/ML SOLUTION PEN-INJECTOR DIRECTED 60 UNITS SUBCUTANEOUS TAKING PANTOPRAZOLE SODIUM 40 MG TABLET DELAYED RELEASE TAKE 1 TABLET BY MOUTH EVERY DAY TAKING NYSTATIN [id number] UNIT/GM POWDER 1 APPLICATION EXTERNALLY TWICE A DAY TAKING MELATONIN 3 MG TABLET 1 TABLET AT BEDTIME NEEDED ORALLY ONCE A DAY TAKING TRULICITY 1.5 MG/0.5ML SOLUTION PEN-INJECTOR DIRECTED SUBCUTANEOUS TAKING FERROUS SULFATE 325 (65 FE) MG TABLET TAKE 1 TABLET BY MOUTH TWICE A DAY TAKING HYDROCODONE-ACETAMINOPHEN 5-325 MG TABLET 1 TABLET NEEDED ORALLY EVERY 12 HRS PRN PAIN TAKING LOTRIMIN AF 1 % CREAM 1 APPLICATION EXTERNALLY TWICE A DAY TAKING LISINOPRIL 5 MG TABLET TAKE 1 TABLET BY MOUTH EVERY DAY TAKING ROSUVASTATIN CALCIUM 20 MG TABLET TAKE 1 TABLET BY MOUTH EVERY DAY AT NIGHT TAKING SERTRALINE HCL 100 MG TABLET 1.5 TABLET ORALLY ONCE A DAY NOT-TAKING CARVEDILOL 6.25 MG TABLET 1 TABLET WITH FOOD ORALLY TWICE A DAY, NOTES: DUPLICATE MEDICATION LIST REVIEWED AND RECONCILED WITH THE PATIENT PAST MEDICAL HISTORY SPINAL BIFIDA-WHEELCHAIR BOUND HISTORY OF CAD; HAD [place] DURING SURGERY FOR STRANGULATED HERNIA - DR. 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 URINARY RETENTION, CHRONIC INCONTINENCE COLOSTOMY S/P SURGERY FOR STRANGULATED HERNIA HX MRSA INFECTIONS HISTORY OF DVT AND PULMONARY EMBOLISM ALLERGIES BACTRIM: HIVES - SIDE EFFECTS MACROBID: HIVES - SIDE EFFECTS SOCIAL HISTORY GENERAL: TOBACCO USE ARE YOU A:FORMER SMOKER HOW LONG HAS IT BEEN SINCE YOU LAST SMOKED?5-10 YEARS LATEX QUESTIONNAIRE LATEX ALLERGY : HAVE YOU EVER DEVELOPED ANY TYPE OF REACTION AFTER HANDLING LATEX PRODUCTS SUCH RUBBER GLOVES, CONDOMS, DIAPHRAGMS, BALLOONS, SOCKS, OR UNDERWEAR?NO LATEX ALLERGY : HAVE YOU EVER DEVELOPED ANY TYPE OF REACTION DURING OR AFTER DENTAL APPOINTMENT, VAGINAL/RECTAL EXAMINATION, SURGICAL PROCEDURE, OR ANY OTHER EXPOSURE?NO LATEX RISK : HAVE YOU EVER HAD ANY DIFFICULTY BREATHING OR HIVES AFTER EATING OR HANDLING ANY FRUITS, OR VEGETABLES; SUCH KIWI, BANANAS, STONE FRUITS, OR CHESTNUTSNO LATEX RISK : DO YOU HAVE A PREVIOUS PERSONAL HISTORY OF MORE THAN NINE SURGERIES, SPINA BIFIDA, OR REPEATED CATHERIZATIONS? YES - PLEASE INDICATE : > 9 SURGERIES, SPINE ABIFIDA LATEX RISK : ARE YOU FREQUENTLY EXPOSED TO LATEX PRODUCTS IN YOUR OCCUPATION?NO DATE ASKED : 08/17/2020 ALCOHOL USE: OCCASIONAL. BMI CARE GOAL FOLLOW-UP ABOVE NORMAL BMI FOLLOW-UPDIETARY MANAGEMENT EDUCATION, GUIDANCE, AND COUNSELING, DIETARY NEEDS EDUCATION ALCOHOL SCREENING DID YOU HAVE A DRINK CONTAINING ALCOHOL IN THE PAST YEAR?NO POINTS0 INTERPRETATIONNEGATIVE RECREATIONAL DRUG USE DRUG USE?NO CAFFEINE CAFFEINE USE?YES HOW OFTEN AND HOW MUCH? COFFEE SEXUAL HX HAD SEX IN THE LAST 12 MONTHS (VAGINAL, ORAL, OR ANAL)?NO HAVE YOU EVER HAD AN STD?NO HIV / HEP-C SCREENING HIV TEST OFFERED TO PATIENT:NO HEP-C TEST OFFERED TO PATIENT:NO [employer] [id number] ZOROASTRIAN LANGU[employer] LANGUAGES SPOKEN:BARBADIAN EDUCATION LEVEL OF EDUCATION:FINISHED HIGH SCHOOL LEARNING BARRIERS / SPECIAL NEEDS CHANGE FROM LAST VISIT?NO BARRIERS TO LEARNING?NO HEARING IMPAIRED?NO VISION IMPAIRED?YES :CORRECTIVE LENSES COGNITIVELY IMPAIRED?NO READINESS TO LEARN?YES LEARNING PREFERENCES?NO LEARNING CAPABILITIES PRESENT?YES EMOTIONAL BARRIERS?NO SPECIAL DEVICES?YES :WHEELCHAIR RADIOGRAPHIC TECHNOLOGIST NEEDED?NO DOMESTIC VIOLENCE DO YOU FEEL SAFE IN YOUR ENVIRONMENT?YES OCCUPATION: DISABLED. DIET: CARBOHYDRATE CONTROLLED. EXERCISE: NO REGULAR EXERCISE. MARITAL STATUS: . OTHERS AT HOME: SPOUSE. HOUSING: RENTS APARTMENT. ADVANCE DIRECTIVE ADVANCE DIRECTIVE DISCUSSED WITH PATIENT:YES BROTHER MARYCHUY [phone] JAMSHID GILLIAM MA. REVIEW OF SYSTEMS CONSTITUTIONAL: ANY RECENT FEVER NO . CHILLS NO . WEIGHT CHANGE OF UNKNOWN REASONS NO . GASTROENTEROLOGY: NEW UNEXPLAINABLE CHANGES IN BOWEL CONTROL NO . CONSTIPATION NO . GENITOURINARY: ANY NEW CHANGE IN BLADDER CONTROL? NO . NEUROLOGY: NEW ONSET DIZZINESS OR NEUROLOGICAL CHANGES NOT MENTIONED NO . NEW NUMBNESS OR PAIN PATTERNS NOT MENTIONED AND PERTINENT TO TODAY'S VISIT NO . CARDIOLOGY: NEW CHEST PRESSURE NO . PATIENT DENIES NO . RESPIRATORY: UNEXPLAINABLE COUGH NO . NEW SHORTNESS OF BREATH NO . VITAL SIGNS WT 237 LBS, HT 63 IN, BMI 41.98 INDEX, BP 120/54 MM HG, HR 101 /MIN, RR 18 /MIN, TEMP 97.6 F, OXYGEN SAT % 99, SAFE IN ENV? (Y/N) Y, REVIEWED BY: KG. EXAMINATION GENERAL EXAMINATION: GENERALNO ACUTE DISTRESS, WELL NOURISHED AND HYDRATED. PSYCHAPPROPRIATE MOOD AND AFFECT . LUNGS:CLEAR TO AUSCULTATION BILATERALLY, NO WHEEZES, RHONCHI, RALES. HEART:NO MURMURS, REGULAR RATE AND RHYTHM. ASSESSMENTS SACROCOCCYGEAL DISORDERS, NOT ELSEWHERE CLASSIFIED - M53.3 (PRIMARY) TREATMENT SACROCOCCYGEAL DISORDERS, NOT ELSEWHERE CLASSIFIED NOTES: 50-YEAR-OLD MALE IN FOR CHRONIC PAIN FOLLOW-UP. GIVEN PRESENTING SYMPTOMS RECOMMEND INCREASING HYDROCODONE TO 3 TIMES A DAY DOSING WITH FOLLOW-UP IN 2 MONTHS. PATIENT HAS EXPRESSED UNDERSTANDING OF AND WAS IN AGREEMENT WITH TREATMENT PLAN. GIVEN TIME TO ASK QUESTIONS AND EXPRESS CONCERNS. , ISTOP REGISTRY REVIEWED AND DEMONSTRATES COMPLLIANCE. (REF # [id number]) BRINGS IN MEDICATIONS WHICH IS APPROPRIATE FOR WHAT WAS DISPENSED. RECENT URINE TOXICOLOGY REVIEWED. NO UNAUTHORIZED MEDICATIONS. NO ILLICIT SUBSTANCES AND PRESCRIBED MEDICATIONS WERE PRESENT. OTHERS LAB: [facility] JAMSHID GILLIAM 08/17/2020 12:18:25 PM > LAST DOSE: HYDROCODONE 08/14/2020 PROCEDURE CODES FA211 ESTABILISHED PATIENT EPISCOPAL FACILITY CHARGE DISPOSITION & COMMUNICATION FOLLOW UP 2 MONTHS (REASON: MED INCREASE) ELECTRONICALLY SIGNED BY MARCELA BHAGAT ON 08/20/2020 AT 08:32 AM EDT DISCLAIMER : THIS IS A VISIT SUMMARY EXTRACTED FROM THE [employer] CHART. IT IS NOT A COPY OF THE [employer] [facility] PROGRESS NOTE. CANDIDO
== END ==
LOC: M PAIN 11:15
PROVIDERS: ATTEND Family Medicine
DX: M53.3 Sacrococcygeal disorders, not elsewhere classified (principal); Q05.9 Spina bifida, unspecified; Z99.3 Dependence on wheelchair; I25.10 Atherosclerotic heart disease of native coronary artery without angina pectoris; I25.2 Old myocardial infarction; E66.01 Morbid (severe) obesity due to excess calories; K21.9 Gastro-esophageal reflux disease without esophagitis; F32.9 Major depressive disorder, single episode, unspecified; E78.5 Hyperlipidemia, unspecified; E11.9 Type 2 diabetes mellitus without complications; G47.33 Obstructive sleep apnea (adult) (pediatric); D50.9 Iron deficiency anemia, unspecified; Z93.3 Colostomy status; Z86.14 Personal history of Methicillin resistant Staphylococcus aureus infection; R33.9 Retention of urine, unspecified; R32 Unspecified urinary incontinence; Z87.891 Personal history of nicotine dependence; Z79.01 Long term (current) use of anticoagulants; Z79.4 Long term (current) use of insulin; Z79.82 Long term (current) use of aspirin; Z79.891 Long term (current) use of opiate analgesic; Z79.899 Other long term (current) drug therapy; Z88.1 Allergy status to other antibiotic agents; Z88.2 Allergy status to sulfonamides

== ENCOUNTER → 2020-08-17 | Outpatient (CLI) | payer MEDICARE, MEDICAID ==
[2020-08-17 14:06] LABS: FREE T4 1.06 NG/DL (0.76-1.46); THYROID STIMULATING HORMONE 1.5 uIU/ML (0.358-3.740)
[2020-08-17 14:07] LABS: TOTAL 25(OH) VITAMIN D 27.5 NG/ML (30.0-100.0)
== END ==
LOC: M LAB 12:42
PROVIDERS: ATTEND Internal Medicine Endocrinology, Diabetes & Metabolism
DX: E11.65 Type 2 diabetes mellitus with hyperglycemia (principal)

== ENCOUNTER → 2020-08-18 | Outpatient (REF) | payer MEDICARE, MEDICAID ==
[2020-08-18 13:15] LABS: CREATININE, URINE 17.9 MG/DL; MALB URINE SIEMENS 67.1 MG/L; MAU/CREAT RATIO 374.8 MCG/MG (0.0-30.0)
== END ==
LOC: M LAB REF 10:30
PROVIDERS: ATTEND Internal Medicine Endocrinology, Diabetes & Metabolism
DX: N36.0 Urethral fistula (principal); Q05.9 Spina bifida, unspecified

== ENCOUNTER → 2020-09-07 | Outpatient (REF) | payer MEDICARE, MEDICAID | LOC: M SFHCPLAZ 15:00 | PROVIDERS: ATTEND Physician Assistant | DX: R59.0 Localized enlarged lymph nodes (principal) ==

== ENCOUNTER → 2020-09-21 | Outpatient (CLI) | payer MEDICARE, OTHER ==
--- NOTE | 2020-09-21 12:47 | REP ---
INDICATION: CERVICAL RADICULOPATHY COMPARISON: None. TECHNIQUE: Irving scale and color evaluation using linear high-frequency transducer. FINDINGS: Ultrasound examination along the neck demonstrates multiple left-sided normal appearing lymph nodes measuring up to 18 x 6 x 12 mm and 10 x 5 x 11 mm. No right-sided adenopathy is appreciated. IMPRESSION: Normal appearing left-sided lymph nodes. Clinical correlation recommended. <Electronically signed by Chang Parnell > 09/21/20 [id number]
== END ==
LOC: M RAD 12:07
PROVIDERS: ATTEND Physician Assistant
DX: R59.0 Localized enlarged lymph nodes (principal)

== ENCOUNTER → 2020-10-17 | Outpatient (CLI) | payer MEDICARE, MEDICAID ==
--- NOTE | 2020-10-19 03:38 | ECWPNPC ---
PATIENT NAME: SKYLER ESCALANTE : 1970 GENDER: MALE VISIT DATE: 10/17/2020 DISCHARGE DATE: 10/17/20 1119 VISIT LOCKED DATE TIME: PHYSICIAN: NICOLAS ROBBINS PHYSICIAN PAGER NO: ACTIVE RESOURCE: NICOLAS ROBBINS REASON FOR APPOINTMENT 1. MED INCREASE HISTORY OF PRESENT ILLNESS DEPRESSION SCREENING: PHQ-2 (2015 EDITION) LITTLE INTEREST OR PLEASURE IN DOING THINGS?NOT AT ALL FEELING DOWN, DEPRESSED, OR HOPELESS?NOT AT ALL TOTAL SCORE0 GENERAL: HPI 50-YEAR-OLD MALE IN FOR CHRONIC PAIN FOLLOW-UP. HE FEELS HIS MEDICATIONS ARE HELPFUL AND DENIES MED SIDE EFFECTS AT THIS TIME. HE RATES HIS PAIN CURRENTLY AT A 5 OUT OF 10 DESCRIBES IT ACHING AND THROBBING.. -. FALL RISK SCREENING: SCREENING : NO FALLS REPORTED IN THE LAST YEAR. PAIN SCREENING: PATIENT HAS A COMPLAINT OF ACUTE OR CHRONIC PAIN :YES LOCATION OF PAIN:OTHER: BUTTOCKS INTENSITY OF PAIN (SCALE OF 1 TO 10):5 WHAT DOES YOUR PAIN FEEL LIKE:ACHING, THROBBING DURATION:CONTINOUS, CONSTANT PAIN IS INCREASED BY:ACTIVITIES PAIN IS DECREASED BY:USE OF PAIN MEDICATIONS, SITTING NURSING NOTE: -. PAIN CENTER INTAKE QUESTIONS: DO YOU HAVE A HISTORY OF MRSA? :YES DO YOU TAKE A BLOOD THINNERS? :YES ELOQUIS DO YOU HAVE ANY BLEEDING DISORDERS? :NO ANY NEW NUMBNESS OR WEAKNESS IN YOUR LEGS OR ARMS? :NO ANY PACEMAKER,DEFIBRILLATOR, OR DORSAL COLUMN STIMULATOR? :NO DO YOU HAVE ANY RASHES OR OPEN SORES? :NO ARE YOU ALLERGIC TO IV DYE? :NO ARE YOU DIABETIC? :YES ANY NEW PROBLEMS WITH YOUR MEDICATIONS? :NO HAVE YOU RECEIVED A VACCINE IN THE PAST 30 DAYS? :NO DO YOU PLAN TO RECEIVE A VACCINE IN THE NEXT 21 DAYS? :NO DO YOU NEED ANY PRESCRIPTION? :YES HYDROCODONE DO YOU TAKE ANY IMMUNOSUPPRESSIVE MEDICATIONS? :NO DO YOU HAVE ANY KIDNEY OR LIVER DISEASE? :NO IS THERE A CHANCE YOU COULD BE ? :NO ARE YOU BREAST FEEDING? :NO CURRENT MEDICATIONS TAKING MAGNESIUM LACTATE 84 MG (7MEQ) TABLET EXTENDED RELEASE 3 TABLETS ORALLY FOUR TIMES DAILY TAKING ACETAMINOPHEN 325 MG CAPSULE 2 CAPSULE NEEDED ORALLY EVERY 4 HRS PRN TAKING GLUCOMETER DIRECTED DX E11.8 TAKING UNIFINE PENTIPS 31G X 5 MM MISCELLANEOUS 1 PEN TIP SUBCUTANEOUSLY DAILY WITH AM INSULIN AND 4 TIMES A DAY WITH SLIDING SCALE = 4 TIMES A DAY TAKING EMBRACE BLOOD GLUCOSE TEST - STRIP 1 LANCET IN VITRO FOUR TIMES DAILY TAKING OSTOMY DRAINABLE POUCH/FLANGE - MISCELLANEOUS CONVATEC POUCHES AND FLANGES-2 3/4 INCHES DX: Z93.3 DAILY USE TAKING ALBUTEROL SULFATE HFA 108 (90 BASE) MCG/ACT AEROSOL SOLUTION 1 PUFF NEEDED INHALATION EVERY 4 HRS TAKING ELIQUIS 5 MG TABLET TAKE 1 TABLET BY MOUTH TWICE A DAY TAKING CARVEDILOL 6.25 MG TABLET 1 TAB ORALLY TWICE DAILY TAKING HUMALOG KWIKPEN 100 UNIT/ML SOLUTION SLIDING SCALE/ SUBCUTANEOUS [id number]=6UNITS 301-350=[id number]=10 [id number]=12UNITS>450=14-UNITS, NOTES: 30 UNITS TAKING NITROGLYCERIN 0.4 MG TABLET SUBLINGUAL DIRECTED SUBLINGUAL TAKING LISINOPRIL 5 MG TABLET 1 TABLET ORALLY ONCE A DAY TAKING METFORMIN HCL 500 MG TABLET 1 TABLET WITH A MEAL ORALLY TWICE A ADAY TAKING LANTUS SOLOSTAR 100 UNIT/ML SOLUTION PEN-INJECTOR DIRECTED 60 UNITS SUBCUTANEOUS TAKING PANTOPRAZOLE SODIUM 40 MG TABLET DELAYED RELEASE TAKE 1 TABLET BY MOUTH EVERY DAY TAKING TRULICITY 1.5 MG/0.5ML SOLUTION PEN-INJECTOR DIRECTED SUBCUTANEOUS TAKING HYDROCODONE-ACETAMINOPHEN 5-325 MG TABLET 1 TABLET NEEDED ORALLY EVERY 12 HRS PRN PAIN TAKING ROSUVASTATIN CALCIUM 20 MG TABLET TAKE 1 TABLET BY MOUTH EVERY DAY AT NIGHT TAKING SERTRALINE HCL 100 MG TABLET 1.5 TABLET ORALLY ONCE A DAY TAKING FLUCONAZOLE 150 MG TABLET 1 TABLET ORALLY ONCE WEEK TAKING FERROUS SULFATE 325 (65 FE) MG TABLET TAKE 1 TABLET BY MOUTH TWICE A DAY NOT-TAKING MALE EXTERNAL CATHETER MEDIUM - MISCELLANEOUS DIRECTED DIRECTED, CHANGE DAILY, DX CODE N31.9, R32 NOT-TAKING ASPIR-LOW 81 MG TABLET DELAYED RELEASE 1 TABLET ORALLY ONCE A DAY MEDICATION LIST REVIEWED AND RECONCILED WITH THE PATIENT PAST MEDICAL HISTORY SPINAL BIFIDA-WHEELCHAIR BOUND IDDM TYPE 2 WITH HYPERGLYCEMIA - [facility] HISTORY OF CAD; HAD [facility] DURING SURGERY FOR STRANGULATED HERNIA - DR. CHURCHILL MORBID OBESITY GERD DEPRESSION DYLIPIDEMIA MUNIRA ON CPAP - FOLLOWS WITH [facility] MICROCYTIC ANEMIA CHRONIC BILATERAL SACRAL DECUBITUS AND GROIN WOUNDS/SKIN MACERATION BLEEDING BUTTOCK WOUNDS SECONDARY TO ANTICOAGULATION WHILE ON COUMADIN. URINARY RETENTION, CHRONIC INCONTINENCE COLOSTOMY S/P SURGERY FOR STRANGULATED HERNIA HX MRSA INFECTIONS HISTORY OF DVT AND PULMONARY EMBOLISM FORMER SMOKER, QUIT IN 2009 ALLERGIES BACTRIM: HIVES - SIDE EFFECTS MACROBID: HIVES - SIDE EFFECTS SOCIAL HISTORY GENERAL: TOBACCO USE ARE YOU A:FORMER SMOKER HOW LONG HAS IT BEEN SINCE YOU LAST SMOKED?5-10 YEARS LATEX QUESTIONNAIRE LATEX ALLERGY : HAVE YOU EVER DEVELOPED ANY TYPE OF REACTION AFTER HANDLING LATEX PRODUCTS SUCH RUBBER GLOVES, CONDOMS, DIAPHRAGMS, BALLOONS, SOCKS, OR UNDERWEAR?NO LATEX ALLERGY : HAVE YOU EVER DEVELOPED ANY TYPE OF REACTION DURING OR AFTER DENTAL APPOINTMENT, VAGINAL/RECTAL EXAMINATION, SURGICAL PROCEDURE, OR ANY OTHER EXPOSURE?NO LATEX RISK : HAVE YOU EVER HAD ANY DIFFICULTY BREATHING OR HIVES AFTER EATING OR HANDLING ANY FRUITS, OR VEGETABLES; SUCH KIWI, BANANAS, STONE FRUITS, OR CHESTNUTSNO LATEX RISK : DO YOU HAVE A PREVIOUS PERSONAL HISTORY OF MORE THAN NINE SURGERIES, SPINA BIFIDA, OR REPEATED CATHERIZATIONS? YES - PLEASE INDICATE : > 9 SURGERIES, SPINE ABIFIDA LATEX RISK : ARE YOU FREQUENTLY EXPOSED TO LATEX PRODUCTS IN YOUR OCCUPATION?NO DATE ASKED : 10/17/2020 ALCOHOL USE: OCCASIONAL. BMI CARE GOAL FOLLOW-UP ABOVE NORMAL BMI FOLLOW-UPDIETARY MANAGEMENT EDUCATION, GUIDANCE, AND COUNSELING, DIETARY NEEDS EDUCATION ALCOHOL SCREENING DID YOU HAVE A DRINK CONTAINING ALCOHOL IN THE PAST YEAR?NO POINTS0 INTERPRETATIONNEGATIVE RECREATIONAL DRUG USE DRUG USE?NO CAFFEINE CAFFEINE USE?YES HOW OFTEN AND HOW MUCH? COFFEE SEXUAL HX HAD SEX IN THE LAST 12 MONTHS (VAGINAL, ORAL, OR ANAL)?NO HAVE YOU EVER HAD AN STD?NO HIV / HEP-C SCREENING HIV TEST OFFERED TO PATIENT:NO HEP-C TEST OFFERED TO PATIENT:NO RASTAFARI [id number] RESTORATIONIST LANGUAGE LANGUAGES SPOKEN:SERBIAN EDUCATION LEVEL OF EDUCATION:FINISHED HIGH SCHOOL LEARNING BARRIERS / SPECIAL NEEDS CHANGE FROM LAST VISIT?NO BARRIERS TO LEARNING?NO HEARING IMPAIRED?NO VISION IMPAIRED?YES :CORRECTIVE LENSES COGNITIVELY IMPAIRED?NO READINESS TO LEARN?YES LEARNING PREFERENCES?NO LEARNING CAPABILITIES PRESENT?YES EMOTIONAL BARRIERS?NO SPECIAL DEVICES?YES :WHEELCHAIR 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 DIET: CARBOHYDRATE CONTROLLED. EXERCISE: NO REGULAR EXERCISE. MARITAL STATUS: . OTHERS AT HOME: SPOUSE. HOUSING: RENTS APARTMENT. ADVANCE DIRECTIVE ADVANCE DIRECTIVE DISCUSSED WITH PATIENT:YES BROTHER MARYCHUY [phone] JAMSHID GILLIAM MA. REVIEW OF SYSTEMS CONSTITUTIONAL: ANY RECENT FEVER NO . CHILLS NO . WEIGHT CHANGE OF UNKNOWN REASONS NO . GASTROENTEROLOGY: NEW UNEXPLAINABLE CHANGES IN BOWEL CONTROL NO . CONSTIPATION NO . GENITOURINARY: ANY NEW CHANGE IN BLADDER CONTROL? NO . NEUROLOGY: NEW ONSET DIZZINESS OR NEUROLOGICAL CHANGES NOT MENTIONED NO . NEW NUMBNESS OR PAIN PATTERNS NOT MENTIONED AND PERTINENT TO TODAY'S VISIT NO . CARDIOLOGY: NEW CHEST PRESSURE NO . PATIENT DENIES NO . RESPIRATORY: UNEXPLAINABLE COUGH NO . NEW SHORTNESS OF BREATH NO . VITAL SIGNS WT 237.0 LBS, WT-KG 107.5 KG, HT 63 IN, BMI 41.98 INDEX, BP 138/81 MM HG, HR 88 /MIN, RR 18 /MIN, TEMP 98.6 F, OXYGEN SAT % 98%, SAFE IN ENV? (Y/N) YES, NA INITIALS AW 1105, REVIEWED BY: MARICEL GILLIAM MA. ASSESSMENTS SACROCOCCYGEAL DISORDERS, NOT ELSEWHERE CLASSIFIED - M53.3 (PRIMARY) STAGE III PRESSURE ULCER OF SACRAL REGION - L89.153 TREATMENT SACROCOCCYGEAL DISORDERS, NOT ELSEWHERE CLASSIFIED NOTES: 50-YEAR-OLD MALE IN FOR CHRONIC PAIN FOLLOW-UP. GIVEN PRESENTING SYMPTOMS RECOMMEND CONTINUATION OF CURRENT MEDICATION REGIMEN WITH FOLLOW-UP IN 3 MONTHS. PATIENT HAS EXPRESSED UNDERSTANDING OF AND WAS IN AGREEMENT WITH TREATMENT PLAN. GIVEN TIME TO ASK QUESTIONS AND EXPRESS CONCERNS. , ISTOP REGISTRY REVIEWED AND DEMONSTRATES COMPLLIANCE. (REF # ) BRINGS IN MEDICATIONS WHICH IS APPROPRIATE FOR WHAT WAS DISPENSED. RECENT URINE TOXICOLOGY REVIEWED. NO UNAUTHORIZED MEDICATIONS. NO ILLICIT SUBSTANCES AND PRESCRIBED MEDICATIONS WERE PRESENT. STAGE III PRESSURE ULCER OF SACRAL REGION REFILL HYDROCODONE-ACETAMINOPHEN TABLET, 5-325 MG, 1 TABLET NEEDED, ORALLY, EVERY 8 HRS PRN PAIN MDD 3, 30 DAYS, 90, REFILLS 0 PROCEDURE CODES FA211 ESTABILISHED PATIENT [facility] CHARGE DISPOSITION & COMMUNICATION FOLLOW UP 3 MONTHS ELECTRONICALLY SIGNED BY MARCELA BHAGAT ON 10/18/2020 AT 07:56 AM EDT DISCLAIMER : THIS IS A VISIT SUMMARY EXTRACTED FROM THE [employer] CHART. IT IS NOT A COPY OF THE [employer] PROGRESS NOTE. MTDD
== END ==
LOC: M PAIN 11:00
PROVIDERS: ATTEND Family Medicine
DX: M53.3 Sacrococcygeal disorders, not elsewhere classified (principal); L89.153 Pressure ulcer of sacral region, stage 3; Q05.9 Spina bifida, unspecified; E11.65 Type 2 diabetes mellitus with hyperglycemia; I25.10 Atherosclerotic heart disease of native coronary artery without angina pectoris; E66.01 Morbid (severe) obesity due to excess calories; K21.9 Gastro-esophageal reflux disease without esophagitis; F32.9 Major depressive disorder, single episode, unspecified; E78.5 Hyperlipidemia, unspecified; G47.33 Obstructive sleep apnea (adult) (pediatric); D50.9 Iron deficiency anemia, unspecified; R33.9 Retention of urine, unspecified; Z86.711 Personal history of pulmonary embolism; Z86.718 Personal history of other venous thrombosis and embolism; Z87.891 Personal history of nicotine dependence; Z79.01 Long term (current) use of anticoagulants; Z93.3 Colostomy status; Z79.891 Long term (current) use of opiate analgesic; Z79.4 Long term (current) use of insulin; Z79.899 Other long term (current) drug therapy; Z79.82 Long term (current) use of aspirin; Z88.2 Allergy status to sulfonamides; Z88.1 Allergy status to other antibiotic agents

== ENCOUNTER → 2020-12-14 | Outpatient (CLI) | payer MEDICARE, MEDICAID ==
[2020-12-14 15:24] LABS: BASO # 0.1 10^3/uL (0.0-0.2); BASO % 0.8 % (0.0-1.0); EOS # 0.2 10^3/uL (0.0-0.5); EOS % 3.1 % (0.0-3.0); HEMATOCRIT 42.4 % (42.0-52.0); HEMOGLOBIN 12.2 g/dl (13.5-17.5); LYMPH # 1.5 10^3/uL (1.5-5.0); LYMPH % 20.4 % (24.0-44.0); MEAN CORPUSCULAR HEMOGLOBIN 21.1 pg (27.0-33.0); MEAN CORPUSCULAR HGB CONC 28.8 g/dl (32.0-36.5); MEAN CORPUSCULAR VOLUME 73.2 fl (80.0-96.0); MONO # 0.4 10^3/uL (0.0-0.8); MONO % 5.3 % (2.0-8.0); NEUTROPHILS % 70.1 % (36.0-66.0); PLATELET COUNT, AUTOMATED 209 10^3/uL (150-450); RED BLOOD COUNT 5.79 10^6/uL (4.30-6.10); WHITE BLOOD COUNT 7.2 10^3/uL (4.0-10.0)
[2020-12-14 16:14] LABS: ALBUMIN 2.7 GM/DL (3.2-5.2); ALT/SGPT 15 U/L (12-78); BILIRUBIN,TOTAL 0.4 MG/DL (0.2-1.0); BLOOD UREA NITROGEN 11 MG/DL (7-18); CALCIUM LEVEL 8.9 MG/DL (8.5-10.1); CARBON DIOXIDE LEVEL 30 MEQ/L (21-32); CHLORIDE LEVEL 99 MEQ/L (98-107); CREATININE FOR GFR 0.71 MG/DL (0.70-1.30); GLOMERULAR FILTRATION RATE > 60.0 (>56); GLUCOSE, FASTING 414 MG/DL (70-100); POTASSIUM SERUM 3.7 MEQ/L (3.5-5.1); SODIUM LEVEL 135 MEQ/L (136-145); TOTAL PROTEIN 7.2 GM/DL (6.4-8.2)
== END ==
LOC: M PLALAB 13:48
PROVIDERS: ATTEND Family Medicine
DX: R39.89 Other symptoms and signs involving the genitourinary system (principal)

== ENCOUNTER → 2020-12-26 | Outpatient (CLI) | payer MEDICARE, MEDICAID | LOC: M PAIN 11:00 | PROVIDERS: ATTEND Anesthesiology | DX: Z79.891 Long term (current) use of opiate analgesic (principal) ==

== ENCOUNTER → 2021-01-08 | Outpatient (REF) | payer MEDICARE, MEDICAID ==
[2021-01-08 13:23] LABS: APPEARANCE, URINE CLOUDY (CLEAR); BACTERIA, URINE AUTO 3+ (NEGATIVE); BILIRUBIN, URINE AUTO NEGATIVE (NEGATIVE); BLOOD, URINE BLOOD 2+ (NEGATIVE); COLOR, URINE YELLOW (YELLOW); GLUCOSE, URINE (UA) AUTO 3+ mg/dL (NEGATIVE); KETONE, URINE AUTO NEGATIVE (NEGATIVE); LEUKOCYTE ESTERASE, URINE AUTO 3+ (NEGATIVE); NITRITE, URINE AUTO NEGATIVE (NEGATIVE); PROTEIN, URINE AUTO 1+ mg/dL (NEGATIVE); RBC, URINE AUTO 8 /HPF (0-3); SPECIFIC GRAVITY URINE AUTO 1.017 (1.002-1.035); SQUAMOUS EPITHELIAL CELL UR AU 2 /HPF (0-6); UROBILINOGEN, URINE AUTO 0.2 mg/dL (0.0-2.0); WBC, URINE AUTO TNTC /HPF (0-3)
== END ==
LOC: M SMT 12:57
PROVIDERS: ATTEND Urology
DX: N32.89 Other specified disorders of bladder (principal); Z79.899 Other long term (current) drug therapy

== ENCOUNTER 2021-08-02 11:26 | Emergency (ER) | payer MEDICARE, MEDICAID ==
[~2021-08-02] VITALS: Ht 160 cm; Wt 103.6 kg
[2021-08-02 11:26] VITALS: BP 131/69
[~2021-08-02 11:26] MED LIST changes: -LISI-898 PO; +LISI5TAB11 PO; +LOSA25TA13 PO; -LOSA25TA14 PO
[2021-08-02] MEDS ORDERED: METF-838 (12:24)
[2021-08-02] MEDS ORDERED: DULA3PEN (12:24)
[2021-08-02] MEDS ORDERED: LANTINJ4 (12:24)
== END 2021-08-02 13:11 | disposition left against medical advice (07) ==
LOC: M ED 11:26
DX: Z53.21 Procedure and treatment not carried out due to patient leaving prior to being seen by health care provider (principal)

== ENCOUNTER → 2022-04-14 | Outpatient (CLI) | payer MEDICARE, MEDICAID ==
[~2022-04-14] MED LIST changes: +CLOP75TA99 PO; +DULA3PEN; +LANTINJ4; +METF-838; -PLAV1TAB2 PO
[2022-04-14 16:29] LABS: HEMATOCRIT 43.2 % (42.0-52.0); HEMOGLOBIN 12.2 g/dl (13.5-17.5); MEAN CORPUSCULAR HEMOGLOBIN 20.9 pg (27.0-33.0); MEAN CORPUSCULAR HGB CONC 28.2 g/dl (32.0-36.5); MEAN CORPUSCULAR VOLUME 74.1 fl (80.0-96.0); PLATELET COUNT, AUTOMATED 277 10^3/uL (150-450); RED BLOOD COUNT 5.83 10^6/uL (4.30-6.10); WHITE BLOOD COUNT 8.1 10^3/uL (4.0-10.0)
[2022-04-14 16:37] LABS: HEMOGLOBIN A1c 8.9 % (4.0-6.0)
[2022-04-14 19:10] LABS: ALBUMIN 3.2 G/DL (3.2-5.2); ALKALINE PHOSPHATASE 108 U/L (46-116); ALT/SGPT 15 U/L (7.0-40); AST/SGOT 16 U/L (<34); BILIRUBIN,TOTAL 0.8 MG/DL (0.3-1.2); BLOOD UREA NITROGEN 9 MG/DL (9-23); CALCIUM LEVEL 9.1 MG/DL (8.5-10.1); CARBON DIOXIDE LEVEL 28 MMOL/L (20-31); CHLORIDE LEVEL 102 MMOL/L (98-107); CHOLESTEROL LEVEL 135 MG/DL (<200); CHOLESTEROL RISK RATIO 3.97 (<5); CREATININE FOR GFR 0.54 MG/DL (0.70-1.30); FERRITIN 8.4 NG/ML (10.5-307.3); FREE T4 1.12 NG/DL (0.89-1.76); GLOMERULAR FILTRATION RATE > 60.0 (>56); GLUCOSE, FASTING 136 MG/DL (60-100); IRON (FE) 23 UG/DL (65-175); LDL CHOLESTEROL 72.2 MG/DL (<100); NON-HDL-C 101 MG/DL; PERCENT SATURATION 6.2 % (19.7-50.0); SODIUM LEVEL 140 MMOL/L (136-145); THYROID STIMULATING HORMONE 3.927 uIU/ML (0.55-4.78); TOTAL 25(OH) VITAMIN D 40.2 NG/ML (20.0-100.0); TOTAL IRON BINDING CAPACITY 373 UG/DL (250-425); TOTAL PROTEIN 7.8 G/DL (5.7-8.2); TRIGLYCERIDES LEVEL 144 MG/DL (<150); VITAMIN B12 LEVEL 446 PG/ML (211-911)
== END ==
LOC: M PLALAB 13:03
PROVIDERS: ATTEND Internal Medicine Hematology
DX: D50.9 Iron deficiency anemia, unspecified (principal); E11.8 Type 2 diabetes mellitus with unspecified complications; Z79.899 Other long term (current) drug therapy

== ENCOUNTER 2022-04-17 12:05 | Outpatient (CLI) | payer MEDICARE, MEDICAID ==
[~2022-04-17] VITALS: Ht 160 cm; Wt 103.4 kg
[~2022-04-17 12:05] MED LIST changes: +ALBUTEROL SULFATE 2.5MG/0.5ML INH NEB SOLN INH PRN; +EPINEPHrine INJ 1 MG/ML 1ML AMP IM PRN; +diphenhydrAMINE 50MG/ML VIAL IV PRN; +methylPREDNISolone 125MG 2ML VIAL IV PRN
[2022-04-17 12:25] VITALS: BP 163/97
[2022-04-17] MEDS ORDERED: FERRIC CARBOXYMALTOSE INJ 750 MG in NS 250 ML (>50kg) IV ONE ×3 (13:00)
[2022-04-17] MEDS ORDERED: NS 1,000 ML IV SCH (13:00)
[2022-04-17 13:54] VITALS: BP 173/89
== END 2022-04-17 13:55 | disposition home or self-care (01) ==
LOC: M INFU 12:05
PROVIDERS: ATTEND Internal Medicine Hematology
DX: D50.9 Iron deficiency anemia, unspecified (principal); Z88.2 Allergy status to sulfonamides; Z88.8 Allergy status to other drugs, medicaments and biological substances
CPT/HCPCS: 96365; J1439

== ENCOUNTER 2022-04-24 12:45 | Outpatient (CLI) | payer MEDICAID, MEDICARE ==
[~2022-04-24] VITALS: Ht 160 cm; Wt 103.4 kg
[2022-04-24 12:58] VITALS: BP 138/87
[2022-04-24] MEDS ORDERED: NS 1,000 ML IV SCH (13:00)
[2022-04-24] MEDS ORDERED: FERRIC CARBOXYMALTOSE INJ 750 MG in NS 250 ML (>50kg) IV ONE ×3 (13:00)
[2022-04-24 14:08] VITALS: BP 108/88
== END 2022-04-24 14:10 | disposition home or self-care (01) ==
LOC: M INFU 12:45
PROVIDERS: ATTEND Internal Medicine Hematology
DX: D50.9 Iron deficiency anemia, unspecified (principal); Z88.2 Allergy status to sulfonamides
CPT/HCPCS: 96365; J1439

== ENCOUNTER → 2022-11-14 | Outpatient (CLI) | payer MEDICARE, OTHER ==
[~2022-11-14] MED LIST changes: -ALBUTEROL SULFATE 2.5MG/0.5ML INH NEB SOLN INH PRN; -EPINEPHrine INJ 1 MG/ML 1ML AMP IM PRN; -diphenhydrAMINE 50MG/ML VIAL IV PRN; -methylPREDNISolone 125MG 2ML VIAL IV PRN
[2022-11-14 13:18] LABS: HEMATOCRIT 44.4 % (42.0-52.0); HEMOGLOBIN 13.3 g/dl (13.5-17.5); MEAN CORPUSCULAR HEMOGLOBIN 23.6 pg (27.0-33.0); MEAN CORPUSCULAR VOLUME 78.7 fl (80.0-96.0); PLATELET COUNT, AUTOMATED 428 10^3/uL (150-450); RED BLOOD COUNT 5.64 10^6/uL (4.30-6.10); WHITE BLOOD COUNT 13.7 10^3/uL (4.0-10.0)
[2022-11-14 13:28] LABS: ALBUMIN 2.8 G/DL (3.2-5.2); ALKALINE PHOSPHATASE 96 U/L (46-116); ALT/SGPT 12 U/L (7.0-40); AST/SGOT < 8 U/L (<34); BILIRUBIN,TOTAL 0.4 MG/DL (0.3-1.2); BLOOD UREA NITROGEN 14 MG/DL (9-23); CALCIUM LEVEL 8.7 MG/DL (8.5-10.1); CARBON DIOXIDE LEVEL 25 MMOL/L (20-31); CHLORIDE LEVEL 108 MMOL/L (98-107); CHOLESTEROL LEVEL 101 MG/DL (<200); CHOLESTEROL RISK RATIO 3.25 (<5); CREATININE FOR GFR 0.79 MG/DL (0.70-1.30); GLOMERULAR FILTRATION RATE > 60.0 (>56); GLUCOSE, FASTING 47 MG/DL (60-100); LDL CHOLESTEROL 49.6 MG/DL (<100); SODIUM LEVEL 141 MMOL/L (136-145); TOTAL PROTEIN 7.3 G/DL (5.7-8.2); TRIGLYCERIDES LEVEL 102 MG/DL (<150)
[2022-11-14 13:29] LABS: FERRITIN 80.2 NG/ML (10.5-307.3); FREE T4 0.96 NG/DL (0.89-1.76)
[2022-11-14 13:30] LABS: THYROID STIMULATING HORMONE 3.928 uIU/ML (0.55-4.78); TOTAL 25(OH) VITAMIN D 35.4 NG/ML (20.0-100.0); VITAMIN B12 LEVEL 487 PG/ML (211-911)
[2022-11-14 13:45] LABS: HEMOGLOBIN A1c 7.7 % (4.0-6.0)
[2022-11-18 17:08] LABS: FREE KAPPA LIGHT CHAINS SERUM 99.7 mg/L (3.3-19.4); KAPPA/LAMBDA RATIO SERUM 2.22 (0.26-1.65)
== END ==
LOC: M LAB 12:05
PROVIDERS: ATTEND Internal Medicine Hematology
DX: D50.9 Iron deficiency anemia, unspecified (principal); E07.9 Disorder of thyroid, unspecified; E78.00 Pure hypercholesterolemia, unspecified

== ENCOUNTER → 2022-11-20 | Outpatient (REF) | payer MEDICARE ==
[2022-11-20 18:11] LABS: CREATININE, URINE 51.8 MG/DL; MAU/CREAT RATIO 218.1 MCG/MG (0.0-30.0)
== END ==
LOC: M SFHCPLAZ 16:56
PROVIDERS: ATTEND Internal Medicine Hematology
DX: E11.8 Type 2 diabetes mellitus with unspecified complications (principal)

== ENCOUNTER → 2023-11-09 | Outpatient (CLI) | payer MEDICARE, MEDICAID ==
[~2023-11-09] MED LIST changes: -OXYB5TAB10 PO; +OXYB5TAB14 PO
== END ==
LOC: M RAD 13:54
PROVIDERS: ATTEND Internal Medicine Critical Care Medicine
DX: Z87.891 Personal history of nicotine dependence (principal)

== ENCOUNTER → 2024-02-01 | Outpatient (CLI) | payer MEDICARE, MEDICAID ==
[~2024-02-01] MED LIST changes: +NYST1POW3 TOP; -NYST1POW9 TOP
== END ==
LOC: M RAD 13:03
PROVIDERS: ATTEND Surgery
DX: K43.2 Incisional hernia without obstruction or gangrene (principal)

== ENCOUNTER → 2024-05-31 | Outpatient (CLI) | payer MEDICARE, MEDICAID ==
[2024-05-31 16:09] LABS: BASO # 0.1 10^3/uL (0.0-0.2); EOS # 0.2 10^3/uL (0.0-0.5); EOS % 2.1 % (0.0-3.0); HEMATOCRIT 42.8 % (42.0-52.0); LYMPH # 1.5 10^3/uL (1.5-5.0); LYMPH % 17.8 % (24.0-44.0); MEAN CORPUSCULAR HEMOGLOBIN 23.3 pg (27.0-33.0); MEAN CORPUSCULAR HGB CONC 30.4 g/dl (32.0-36.5); MEAN CORPUSCULAR VOLUME 76.6 fl (80.0-96.0); MONO # 0.5 10^3/uL (0.0-0.8); MONO % 6.1 % (2.0-8.0); NEUTROPHILS # 5.9 10^3/uL (1.5-8.5); NEUTROPHILS % 72.6 % (36.0-66.0); PLATELET COUNT, AUTOMATED 215 10^3/uL (150-450); RED BLOOD COUNT 5.59 10^6/uL (4.30-6.10); WHITE BLOOD COUNT 8.2 10^3/uL (4.0-10.0)
[2024-05-31 16:36] LABS: ALKALINE PHOSPHATASE 93 U/L (40-129); ALT/SGPT 12 U/L (7.0-40); AST/SGOT 9 U/L (<34); BILIRUBIN,TOTAL 0.7 MG/DL (0.3-1.2); BLOOD UREA NITROGEN 10 MG/DL (9-23); C REACTIVE PROTEIN QUANTITATIV 5.19 MG/DL (<1.0); CALCIUM LEVEL 9.1 MG/DL (8.5-10.1); CARBON DIOXIDE LEVEL 26 MMOL/L (20-31); CHLORIDE LEVEL 102 MMOL/L (98-107); CREATININE FOR GFR 0.73 MG/DL (0.70-1.30); GLOMERULAR FILTRATION RATE > 60.0 (>56); GLUCOSE, FASTING 134 MG/DL (60-100); IRON (FE) 21 UG/DL (65-175); POTASSIUM SERUM 3.9 MMOL/L (3.5-5.1); SODIUM LEVEL 139 MMOL/L (136-145); TOTAL PROTEIN 7.7 G/DL (5.7-8.2)
[2024-05-31 16:37] LABS: FREE T4 1.06 NG/DL (0.89-1.76)
[2024-05-31 16:38] LABS: PROLACTIN 5.74 NG/ML (2.1-17.7); VITAMIN B12 LEVEL 487 PG/ML (211-911)
[2024-05-31 16:54] LABS: HEMOGLOBIN A1c 7.6 % (4.0-6.0)
== END ==
LOC: M PLALAB 13:33
PROVIDERS: ATTEND Internal Medicine Hematology
DX: E11.8 Type 2 diabetes mellitus with unspecified complications (principal); D64.9 Anemia, unspecified

== ENCOUNTER → 2024-06-24 | Outpatient (CLI) | payer MEDICARE, MEDICAID | LOC: M RAD 12:25 | PROVIDERS: ATTEND Family Medicine | DX: N28.9 Disorder of kidney and ureter, unspecified (principal); N28.1 Cyst of kidney, acquired ==

== ENCOUNTER → 2024-06-24 | Outpatient (CLI) | payer MEDICARE, MEDICAID | LOC: M RAD 13:33 | DX: J98.11 Atelectasis (principal); Z95.810 Presence of automatic (implantable) cardiac defibrillator ==

== ENCOUNTER → 2024-10-24 | Outpatient (CLI) | payer MEDICARE, MEDICAID ==
[2024-10-24 15:26] LABS: PSA SCREENING 1.36 NG/ML (< 4.00)
[2024-10-24 15:27] LABS: PLATELET COUNT, AUTOMATED 225 10^3/uL (150-450)
[2024-10-24 15:28] LABS: IRON (FE) 18 UG/DL (65-175); PERCENT SATURATION 6.1 % (19.7-50.0)
[2024-10-24 15:29] LABS: ALT/SGPT 9 U/L (7.0-40); AST/SGOT 10 U/L (<34); CALCIUM LEVEL 9.2 MG/DL (8.5-10.1); CARBON DIOXIDE LEVEL 28 MMOL/L (20-31); CHLORIDE LEVEL 106 MMOL/L (98-107); CHOLESTEROL LEVEL 127 MG/DL (<200); CHOLESTEROL RISK RATIO 4.05 (<5); CREATININE FOR GFR 0.70 MG/DL (0.70-1.30); GLOMERULAR FILTRATION RATE > 90.0 (>56); LDL CHOLESTEROL 64.9 MG/DL (<100); NON-HDL-C 95.7 MG/DL; POTASSIUM SERUM 3.5 MMOL/L (3.5-5.1); SODIUM LEVEL 145 MMOL/L (136-145); TRIGLYCERIDES LEVEL 154 MG/DL (<150)
[2024-10-24 15:35] LABS: C REACTIVE PROTEIN QUANTITATIV 3.44 MG/DL (<1.0)
[2024-10-24 16:15] LABS: ESTIMATED AVERAGE GLUCOSE 194.0 MG/DL (60-110)
== END ==
LOC: M PLALAB 12:05
PROVIDERS: ATTEND Family Medicine
DX: E11.622 Type 2 diabetes mellitus with other skin ulcer (principal); D50.9 Iron deficiency anemia, unspecified; R79.82 Elevated C-reactive protein (CRP); E78.5 Hyperlipidemia, unspecified; R33.9 Retention of urine, unspecified; Z12.5 Encounter for screening for malignant neoplasm of prostate
CPT/HCPCS: 36415; 80053; 80061; 82728; 83036; 83550; 85027; 86140; G0103

== ENCOUNTER → 2025-02-06 | Outpatient (CLI) | payer MEDICARE, MEDICAID | LOC: M RAD 10:36 | PROVIDERS: ATTEND Family Medicine | DX: M79.89 Other specified soft tissue disorders (principal) ==

== ENCOUNTER → 2025-02-06 | Outpatient (CLI) | payer MEDICARE, MEDICAID ==
[2025-02-06 12:30] LABS: PLATELET COUNT, AUTOMATED 529 10^3/uL (150-450)
[2025-02-06 12:53] LABS: ESTIMATED AVERAGE GLUCOSE 174.0 MG/DL (60-110)
[2025-02-06 13:03] LABS: IRON (FE) 36.0 UG/DL (65-175); PERCENT SATURATION 14.3 % (19.7-50.0)
== END ==
LOC: M LAB 11:43
PROVIDERS: ATTEND Family Medicine
DX: D50.9 Iron deficiency anemia, unspecified (principal); E11.622 Type 2 diabetes mellitus with other skin ulcer; M79.89 Other specified soft tissue disorders

== ENCOUNTER 2025-02-20 18:23 | Emergency (ER) | payer MEDICARE, MEDICAID ==
[~2025-02-20] VITALS: Ht 160 cm; Wt 96.3 kg
[2025-02-20 18:38] VITALS: TEMP 97.9
[2025-02-20] MEDS: NS (Normal Saline) 0.9% 1,000 ML IV ONE (18:50)
[2025-02-20 19:20] LABS: PLATELET COUNT, AUTOMATED 274 10^3/uL (150-450)
[2025-02-20 20:00] LABS: CALCIUM LEVEL 6.5 MG/DL (8.5-10.1); CARBON DIOXIDE LEVEL 21 MMOL/L (20-31); CHLORIDE LEVEL 107 MMOL/L (98-107); CREATININE FOR GFR 0.89 MG/DL (0.70-1.30); GLOMERULAR FILTRATION RATE > 90.0 (>56); POTASSIUM SERUM 3.7 MMOL/L (3.5-5.1); SODIUM LEVEL 138 MMOL/L (136-145)
[2025-02-20 23:00] VITALS: BP 110/59
[2025-02-20 23:01] VITALS: O2SAT 100
== END 2025-02-21 00:52 | disposition home or self-care (01) ==
LOC: M ED 18:23 → EDBD 18:23 → M ED 02-21 00:52
DX: D64.89 Other specified anemias (principal); E11.9 Type 2 diabetes mellitus without complications; I25.119 Atherosclerotic heart disease of native coronary artery with unspecified angina pectoris; J44.9 Chronic obstructive pulmonary disease, unspecified; Z88.2 Allergy status to sulfonamides; Z79.1 Long term (current) use of non-steroidal anti-inflammatories (NSAID); Z79.51 Long term (current) use of inhaled steroids; Z79.4 Long term (current) use of insulin; Z79.84 Long term (current) use of oral hypoglycemic drugs; Z79.899 Other long term (current) drug therapy; Z79.810 Long term (current) use of selective estrogen receptor modulators (SERMs)